=== PATIENT | female | born 1945 | race Caucasian/White ===

== ENCOUNTER → 2023-11-17 13:47 | Outpatient (REF) | payer MEDICARE, OTHER, SELFPAY | LOC: HWRAD 13:47 | PROVIDERS: ATTENDING PHYSICIAN Family Medicine | DX: R10.33 Periumbilical pain (principal) | CPT/HCPCS: 74170; Q9967 ==

== ENCOUNTER 2023-11-21 14:49 | Inpatient (IN) | payer MEDICARE, OTHER, SELFPAY ==
[2023-11-21] VITALS (8 sets, daily range): BP systolic 107–160; BP diastolic 66–85
--- NOTE | 2023-11-21 12:45 | ED.GENMED ---
History of Present Illness
General
Chief Complaint: Abdominal Symptoms
Source: patient
Exam Limitations: none
Time Seen by Provider: 11/21/23 12:29
Nursing documentation reviewed up to this point in time: agreed with
Travel History
Have you had any contact with someone who has COVID-19?: No
Do you have any symptoms of coronavirus? Fever > 100 degrees, chills, cough, shortness of breath, sore throat, loss of taste or smell, muscle aches, or headache?: No
History of Present Illness
History of Present Illness:
Patient presents to ED secondary to persistent abdominal pain associated with nausea sensation and decreased appetite over the past 2 weeks. Patient was evaluated by her primary care physician last week and recently had CT scan of abdomen pelvis
completed. Patient received phone call today from her primary care physician with concern for potential abdominal malignancy and referred to ED for further evaluation and treatment. Upon arrival, patient denies fever. Denies chills. Denies chest
pain or shortness of breath. Patient is complaining of ongoing abdominal pain with radiation to back and shoulder. Denies vomiting or diarrhea. Patient reports having lost approximately 4 pounds of weight since onset of her symptoms. Patient is
a daily smoker.
Past History
Past History
ED Past Medical History: COPD and Hypercholesterolemia; Negative HTN or NIDDM
ED Past Surgical History: None
Social History
Tobacco: Smoker
Alcohol: None
Personal:
Living: with family
Review of Systems
Review of Systems
Allergies reviewed?: Yes
All Other Systems: ROS reviewed and negative except as documented in HPI and ROS
Constitutional: Reports no symptoms
Respiratory: Reports no symptoms; Denies trouble breathing
Cardiac: Reports no symptoms; Denies chest pain
ABD/GI: Reports abdominal pain and nausea; Denies vomiting or diarrhea
: Reports no symptoms
Musculoskeletal: Reports back pain
Skin: Reports no symptoms
Neurological: Reports no symptoms; Denies dizzy, headache or weakness
Phy Exam
Physical Exam
Physical Exam:
Physical Exam
General: mild painful distress, not acutely ill. afebrile
Head: nc/at. eomi
Neck: supple. normal range of motion.
Heart: s1/s2 regular rate and rhythm, no murmur. equal radial pulses.
Lungs: no acute respiratory distress. clear bilaterally
Abdomen: normal bowel sounds. mild diffuse abdominal tenderness to palpation.
Neuro: alert and oriented. no focal neurological deficits
Skin: no rash
Psychiatric: well kept. interactive and cooperative
Extremities: no edema. no calf tenderness.
Course
Orders/Labs/Results
Orders:
Orders
11/21/23 Lunch
Clear Liquid
11/21/23 11:58
EKG [Electrocardiogram (*1)] Urgent
Reason for Study: Abdominal Pain
11/21/23 11:59
EKG- Treatment ONCE
11/21/23 12:41
0.9% Sodium Chloride 500 ml [Nss] 500 ml IV BOLUS
Morphine Sulfate 2 mg IV NOW STA
Ondansetron Injectable [Zofran] 4 mg IV NOW STA
11/21/23 12:50
Complete Blood Count/With Diff Urgent
Comprehensive Metabolic Panel Urgent
Lipase Urgent
Magnesium Urgent
11/21/23 13:49
Urinalysis Reflex To Culture Urgent
Date Specimen was Collected: 11/21/23
Time Specimen was Collected: 13:46
11/21/23 14:32
Admit/Transfer Patient As Directed
Co-Sign Provider:
Level of Care: Inpatient admission
Assign to:: Medical/Surgical
Physician / Group: javad/hospitalist
Diagnosis: abd ppain
Reason for Hospitalization: abd pain, nausea, concern for malignancy
Expected length of stay greater than two midnights?: Yes
ELOS- Estimated Length of Stay in days: 4
I certify the patient meets the requirements for IP care: Yes
11/21/23 14:33
Code Status As Directed
Resuscitation Status: Full Code
11/21/23 14:37
GASTROINTESTINAL CONSULT Routine
Consulting Provider: Miguel Abbasi
Was physician already notified: Yes
Reason for consult: TT by er. Pancreatic lesion
CA 19-9 [S] Routine
11/21/23 17:05
Acetaminophen [Tylenol] 650 mg PO Q4HPRN PRN
Ipratropium/Albuterol Sulfate [Duoneb] 3 ml INH R Q4HPRN PRN
Lactated Ringers [Lr] 1,000 ml IV 200 mls/hr
Morphine Sulfate 2 mg IV Q4HPRN PRN
Nicotine [Nicoderm Transdermal] 21 mg TRANSDERM DAILY
Ondansetron Injectable [Zofran] 4 mg IV Q6HPRN PRN
Oxycodone [Roxicodone] 5 mg PO Q4HPRN PRN
11/21/23 17:05
Activity As Directed
Activity Level: Out of Bed-Early Mobility
Vital Signs As Directed
Frequency: Per unit guidelines
DX Deep Vein Thrombosis Video Routine
11/21/23 18:00
Enoxaparin Sodium [Lovenox] 40 mg SC QPM
11/22/23 Breakfast
NPO
Allow oral meds: Yes
Allow clear liquids: 4hrs prior to procedure
NPO for procedure after (time): midnight for GI Procedure tomorrow
Comment: may have unrestricted clear liquids up to 4 hrs prior to scheduled proc
Cardiovascular Evaluation IN AM
Complete Blood Count/With Diff IN AM
Comprehensive Metabolic Panel IN AM
Hemoglobin A1c [Glycohemoglobin (HgbA1c)] IN AM
PTT IN AM
Prothrombin Time IN AM
11/22/23 08:00
Losartan [Cozaar] 25 mg PO DAILY
Multivitamin [Theragran] 1 tablet PO DAILY
11/22/23 14:00
Levothyroxine [Synthroid] 112 mcg PO DAILY@1400
11/22/23 14:47
Surgical Procedure As Directed
Surgical Procedure: EUS 11/21
Abnormal Lab Results
11/21/23
12:50
RDW 14.7 H %
(11.5-14.5)
MPV 10.6 H fL
(7.4-10.4)
Absolute Monos (auto) 0.7 H 10^3/uL
(0.1-0.6)
Lymphocytes % 20.3 L %
(20.5-51.1)
Sodium 133 L mmol/L
(135-145)
BUN 20 H mg/dl
(7-17)
Glucose 118 H mg/dl
(70-99)
AST 127 H U/L
(14-36)
ALT 228 H U/L
(0-35)
Alkaline Phosphatase 284 H U/L
(38-126)
Lipase 301 H U/L
(23-300)
11/21/23 12:50
11/21/23 12:50
Vital Signs
Initial and Last Documented VS:
Initial Vital Signs
Temp Pulse Resp BP Pulse Ox
98.6 F 111 18 160/85 97
11/21/23 11:59 11/21/23 11:59 11/21/23 11:59 11/21/23 11:59 11/21/23 11:59
Last Documented Vital Signs
Temp Pulse Resp BP Pulse Ox
98.1 F 78 18 126/74 97
11/21/23 23:38 11/21/23 23:38 11/21/23 23:38 11/21/23 23:38 11/21/23 23:38
MDM/Problems Addressed
MDM/Problems Addressed:
CT report from last week reviewed concerning for likely metastatic pancreatic cancer.
Pt with continual abdominal discomfortable along with poor oral intake. Will admit for further evaluation and treatment, including better pain control along with continual hydration.
GI (Dr.Woo Abbasi) notified via [facility].
*Critical Care Note
Total Time (30-74mins, 75-104mins- exclusive of procedures): Not Applicable
ED Attending Note
-
Portions of this chart may have been created with voice recognition software.� Occasional wrong word or��sound alike� substitutions may have occurred due to the inherent limitations of voice recognition software.
Discharge Plan
Departure
Patient Disposition: Admit
Date of Disposition: 11/21/23
Time of Disposition: 13:43
Presentation/result/management discussed w/ accepting MD/DO: Hospitalist
Discharge Problem:
Abnormal CT of the abdomen, Intractable abdominal pain, Dehydration
Interventions
Interventions:
*Risk Screen - Suicide Last Done: 11/21/23 17:43
*General Assessment Last Done: 11/21/23 11:59
*Neglect/Abuse Screening Last Done: 11/21/23 11:59
ED- Fall Risk Assessment Last Done: 11/21/23 12:39
*ED COVID-19 Vaccine History Last Done: 11/21/23 17:43
*Nursing Disposition Last Done: 11/21/23 16:56
LS-Qesnxq-Ssjlfenzqp Assessment Last Done: 11/21/23 12:39
Discharge Date and Time
Discharge Date/Time: 11/21/23 16:56
[2023-11-21] MEDS: MORPHINE SULFATE 2 MG IV (12:48)
[2023-11-21] MEDS: ZOFRAN 4 MG IV ×2 (12:48→19:56)
[2023-11-21] MEDS: NSS 500 IV (12:49)
[2023-11-21 13:04] LABS: % Basophils 0.6 % (0-2); % Eosinophils 2.1 % (0-6); % Immature Granulocytes 0.3 % (0-0.5); % Lymphocytes 20.3 % (20.5-51.1); % Monocytes 7.9 % (1.7-9.3); % Neutrophils 68.8 % (42.2-75.2); Absolute Basophils 0.1 10^3/uL (0-0.2); Absolute Eosinophils 0.2 10^3/uL (0-0.7); Absolute Lymphocytes 1.8 10^3/uL (1.2-3.4); Absolute Monocytes 0.7 10^3/uL (0.1-0.6); Hematocrit 37.8 % (37.0-47.0); Hemoglobin 12.9 g/dL (12.0-16.0); Mean Corp Hgb Conc. 34.1 g/dL (33.0-37.0); Mean Corpuscular Hgb 30.4 pg (27.0-31.0); Mean Corpuscular Volume 88.9 fL (81.0-99.0); Mean Platelet Volume 10.6 fL (7.4-10.4); Nucleated Red Blood Cells % 0 %; Platelet Count 251 10^3/uL (130-400); Red Blood Cell Count 4.25 10^6/uL (4.20-5.40); Red Cell Dist. Width 14.7 % (11.5-14.5); White Blood Cell Count 8.8 10^3/uL (4.8-10.8)
--- NOTE | 2023-11-21 13:50 | CON.GI ---
Addendum entered and electronically signed by Miguel Abbasi MD 11/21/23 16:15:
I saw and examined the patient.
The PA's note was reviewed and I agree with the note.
Comment:
Pt is a 78 year old female with h/o COPD, pulm nodules, hypothyroidism, and tobacco abuse who p/w abnormal imaging results.� She had CT 11/16 which showed decreased attenuation of pancreas concerning for malignancy.
Impression / Rec:
1. Suspected pancreatic mass - CT on 11/16 showed decreased attenuation of the pancreas extending from level of the pancreatic neck through the tail, highly suspicious for primary pancreatic malignancy. There is obliteration of the splenic vein and
splenic artery with associated venous shunting and varices. There is near occlusion of the superior mesenteric vein. There is a stricture of the left renal vein. There is encasement of celiac axis and superior mesenteric artery. There is invasion of
the left adrenal gland. Overall these findings are highly suspicious for pancreatic malignancy. The mass involves neck/body/tail, no biliary dilation noted except for isolated left intrahepatic lesion (possible mets). LFT showed normal bili,
elevated alk phos. Will plan for EUS FNA of panc mass tomorrow. No plan for ERCP for now. Keep NPO from midnight.
Original Note:
Consultation
-
Date/Time Consultation Requested: 11/21/23 1345
Date/Time Consultation Performed: 11/21/23 1350
Requesting Provider: Aaron Keith MD
Performing Provider: ZACH Brand, Miguel Abbasi MD
Reason for Consultation: abnormal CT
Medical History
Chief Complaint / HPI
Chief Complaint: abdominal pain
History of Present Illness:
Pt is a 78yo with hx COPD, pulm nodules, hypothyroidism, skin CA, arthritis, tobacco abuse, IBS constipation with onset of abdominal pain with decreased appetite. She completed CT 11/17/23 concern for decreased attenuation of pancreas concerning for
malignancy with mild distal pancreatic duct dilation with malignancy extends beyond the margins of the pancreas. There is obliteration of the splenic vein and splenic artery with associated venous shunting and varices. There is near occlusion of the
superior mesenteric vein. There is a stricture of the left renal vein. There is encasement of celiac axis and superior mesenteric artery. There is invasion of the left adrenal gland.There is also decreased attenuation of left sided portal vein
branch and isolated intrahepatic biliary dilation in the left lobe of the liver. These findings could be related to metastasis, however no discrete well-circumscribed intrahepatic mass lesion is identified.� Diffuse mild dilation of proximal small
bowel loops, indeterminate etiology. On admission LFT's with bili 0.8, AST 127, ALT 228, alk phos 284 and lipase 301.
Pt states some decreased appetite and nausea for last months. She was lost about 4 lbs. She has hx GERD symptoms with some chronic symptoms with and prior EGD many years ago did not recall any abnormal finding. She admits to constipation for
last 2 days. She otherwise denies dysphagia, vomiting, blood or black in stools. Daily ASA no other anticoagulation use.
Past Medical History
Past Medical History: Cancer (skin CA), COPD, Hypercholesterolemia, Hypothyroidism and Other (arthritis, tobacco abuse, eczema, colon polyps, lung nodules, IBS constipation, prior + colonguard)
Past Surgical History: Other (moh's surgery)
Social History
Tobacco: Smoker (1ppd)
Alcohol: None
Drug: None
Personal:
Living: With Family
Employment: Retired
Family History
Family History: Other (no family hx colon CA or polyps)
Allergies / Home Medications
Allergy/AdvReac Type Severity Reaction Status Date / Time
No Known Allergies Allergy Verified 02/02/18 15:49
Medication Instructions Recorded
levothyroxine 112 mcg tablet 112 mcg PO DAILY 02/02/18
prednisone 20 mg tablet 40 mg PO DAILY COPD #10 tabs 02/02/18
Review of Systems
-
Unable to obtain full review of systems at this time due to: Dementia
History Source: Patient
Constitutional: Reports Weight Loss (few lbs )
EENT: Reports No Symptoms
Respiratory: Reports No Symptoms
Abdomen/GI: Reports Abdominal Pain and Nausea
: Reports No Symptoms
Musculoskeletal: Reports No Symptoms
Neurological: Reports Weakness
Endocrine: Reports No Symptoms
Hematologic/Lymphatic: Reports No Symptoms
Vital Signs
Temp Pulse Resp BP Pulse Ox
98.6 F 111 18 145/67 97
11/21/23 11:59 11/21/23 11:59 11/21/23 11:59 11/21/23 12:33 11/21/23 12:33
Physical Exam
Exam
General: Well Developed, Well Nourished and No Apparent Distress
HEENT: Normocephalic and Anicteric
Respiratory: Clear
Cardiac: Other (tachy)
GI: Soft, Non Tender and Non Distended
Musculoskeletal: No Clubbing and No Cyanosis
Skin: Warm and Dry
Neuro: Awake, Alert and AO x 3
Psych: Calm
Results
WBC 8.8 10^3/uL (4.8-10.8) 11/21/23 12:50
Hgb 12.9 g/dL (12.0-16.0) 11/21/23 12:50
Hct 37.8 % (37.0-47.0) 11/21/23 12:50
MCV 88.9 fL (81.0-99.0) 11/21/23 12:50
Plt Count 251 10^3/uL (130-400) 11/21/23 12:50
Absolute Neuts (auto) 6.0 10^3/uL (1.4-6.5) 11/21/23 12:50
Diagnostic Image Results:
11/17/23 CT Abdomen W/wo Iv Contrast
1. � Abnormally decreased attenuation of the pancreas extending from level of the pancreatic neck through the tail, highly suspicious for primary pancreatic malignancy. Associated mild distal pancreatic ductal dilation.
2. � As above, abnormal soft tissue attenuation representing malignancy extends beyond the margins of the pancreas. There is obliteration of the splenic vein and splenic artery with associated venous shunting and varices. There is near occlusion of
the superior mesenteric vein. There is a stricture of the left renal vein. There is encasement of celiac axis and superior mesenteric artery. There is invasion of the left adrenal gland.
3. � Within the liver, abnormal decreased attenuation of left sided portal vein branch and isolated intrahepatic biliary dilation in the left lobe of the liver. These findings could be related to metastasis, however no discrete well-circumscribed
intrahepatic mass lesion is identified.
4. � Diffuse mild dilation of proximal small bowel loops, indeterminate etiology.
Prior GI Procedures:
EGD: none
06/2021 colonoscopy - [facility]�- One 1 mm polyp at the recto-sigmoid colon, removed with a cold snare. Resected and retrieved.- One 4 mm polyp in the proximal transverse colon, removed with a jumbo cold forceps. Resected and retrieved The examination
was otherwise normal.bx Tubular adenoma
Assessment / Plan
-
Pt is a 78yo with hx COPD, pulm nodules, hypothyroidism, skin CA, arthritis, tobacco abuse, IBS constipation with onset of abdominal pain with decreased appetite. She completed CT 11/16 concern for decreased attenuation of pancreas concerning for
malignancy with mild distal pancreatic duct dilation with malignancy extends beyond the margins of the pancreas. There is obliteration of the splenic vein and splenic artery with associated venous shunting and varices. There is near occlusion of the
superior mesenteric vein. There is a stricture of the left renal vein. There is encasement of celiac axis and superior mesenteric artery. There is invasion of the left adrenal gland.There is also decreased attenuation of left sided portal vein
branch and isolated intrahepatic biliary dilation in the left lobe of the liver. These findings could be related to metastasis, however no discrete well-circumscribed intrahepatic mass lesion is identified.� Diffuse mild dilation of proximal small
bowel loops, indeterminate etiology. On admission LFT's with bili 0.8, AST 127, ALT 228, alk phos 284 and lipase 301.
-nausea/decreased appetite
-CT with concern for pancreatic malignancy with venous shunting and varices, near occlusion of SMV and encasement of celiac and SMA stricture of renal vein and decreased attenuation of portal vein and isolated biliary dilation
-dilation SB loops
-increased LFT's and lipase
-constipation
-chronic shortness of breath with COPD
other medical problems:
-pulm nodules
-hypothyroidism
-skin CA
-arthritis
-tobacco abuse
-IBS-C
PLAN:
Etiology of nausea and pain related to underlying malignant process vs other
will review imaging with Dr. Abbasi to review for EUS with biopsy
Ca 19-9
trend LFT's and lipase
clear diet
support give as multiple social issues as spouse with recent fall and pet recent diagnosis of cancer
-
-
Thank you for consultation and allowing me to participate in the patient's care. Please call the [facility] director GI physician during the after hours with any questions or concerns.
[2023-11-21 14:04] LABS: ALT (SGPT) 228 U/L (0-35); AST (SGOT) 127 U/L (14-36); Albumin 4.2 g/dl (3.5-5.0); Alkaline Phosphatase 284 U/L (38-126); Blood Urea Nitrogen 20 mg/dl (7-17); Calcium 9.7 mg/dl (8.4-10.2); Carbon Dioxide 25 mmol/L (22-30); Chloride 101 mmol/L (98-107); Glucose 118 mg/dl (70-99); Lipase 301 U/L (23-300); Magnesium 1.8 mg/dl (1.6-2.3); Potassium 4.3 mmol/L (3.5-5.1); Sodium 133 mmol/L (135-145); Total Bilirubin 0.8 mg/dl (0.2-1.3); eGFR > 60.00
[2023-11-21 14:06] LABS: Urine Albumin Trace (Neg - Trace); Urine Bilirubin Negative (Negative); Urine Character Clear (Clear); Urine Color Yellow; Urine Glucose Negative (Negative); Urine Ketone Negative (Negative); Urine Leukocyte Negative (Negative); Urine Nitrite Negative (Negative); Urine Occult Blood Negative (Negative); Urine Urobilinogen Negative (Neg - 1+)
--- NOTE | 2023-11-21 14:09 | HPS.HSE ---
Family Physician
-
Family Physician:
Chief Complaint
-
abdomen pain
History of Present Illness
78-year-old female past medical history of ongoing tobacco abuse who had been having abdominal discomfort for the past 3 weeks with radiation to the back and went to see primary doctor. Patient underwent CT abdomen pelvis outpatient which was found
to be abnormal and was recommended to come into the ER for further management. Patient states of decreased appetite due to abdominal discomfort. States of abdominal discomfort/pain with radiation to the back. States of some nausea but no
vomiting. No bowel movements for 2 days. Passing flatulence. States her weight loss of 4 pounds recently. Denies any change in color of urine or stools. Denies any alcohol abuse. Denies any family history of pancreatic or any malignancy.
Medical History
Past Medical History
Past Medical History: Reports Other
Additional Past Medical History:
Tobacco abuse
COPD
Hypothyroidism
History of skin cancer
Mild aortic stenosis
Mild tricuspid regurgitation
Past Surgical History: Reports Other
Additional Past Surgical History:
Hemorrhoidectomy
Mohs
Social History
Tobacco: Smoker (1 pack/day for 59 years)
Alcohol: None
Family History
Family History: Other (Denies any family history of cancer)
Allergies / Home Medications
Allergies reflects when Allergies were last updated in [facility].
Home Medications with original date entered in [facility]
Allergy/Medication List:
Allergies
Allergy/AdvReac Type Severity Reaction Status Date / Time
No Known Allergies Allergy Verified 02/02/18 15:49
Home Medications
levothyroxine 112 mcg tablet 112 mcg PO DAILY@1400 02/02/18
acetaminophen 325 mg tablet (Tylenol) 650 mg PO BIDPRN PRN mild pain 11/21/23
atorvastatin 40 mg tablet 40 mg PO DAILY@199911/21/23
losartan 25 mg tablet 25 mg PO DAILY 11/21/23
xdmxzyzslqtf-zhejoedx-gqqkvr tablet 1 tab PO DAILY 11/21/23
tiotropium 2.5 mcg-olodaterol 2.5 mcg/actuation mist for inhalation (Stiolto Respimat) 1 puff inhalation R DAILY@199911/21/23
Review of Systems
-
History Source: Patient
A 12 point ROS was completed and negative except as noted: Yes
Physical Exam
Vital Signs
Vital Signs
Temp Pulse Resp BP Pulse Ox
98.6 F 111 18 145/67 97
11/21/23 11:59 11/21/23 11:59 11/21/23 11:59 11/21/23 12:33 11/21/23 12:33
Physical Exam
General: No Apparent Distress and Appears Chronically Ill
HEENT: NormoCephalic and Anicteric
Respiratory: Clear
Cardiac: S1/S2 and Regular Rhythm
GI: Soft, Normal Bowel Sounds, Tender (Epigastric tenderness) and Distended
Rectal: Deferred by Provider
Genito-urinary: Deferred by me
Musculoskeletal: No Edema and Other (Varicosis vein bilateral lower extremities)
Skin: Warm
Neuro: Awake, Alert, Oriented, AO x 3, No Motor Deficits and Nonfocal/grossly intact
Psych: Calm
Laboratory Results
-
11/21/23 12:50
11/21/23 12:50
Laboratory Results
Total Bilirubin 0.8 mg/dl (0.2-1.3) 11/21/23 12:50
AST 127 U/L (14-36) H 11/21/23 12:50
ALT 228 U/L (0-35) H 11/21/23 12:50
Alkaline Phosphatase 284 U/L (38-126) H 11/21/23 12:50
Lipase 301 U/L (23-300) H 11/21/23 12:50
Impression/Plan
-
#Abdominal pain nausea likely secondary to pancreatitis with concern for malignancy pancreatic (primary)
#Transaminitis
Liquid diet for now
Start patient on LR
Pain control
Check CA 19�1 May require MRCP
Gastroenterology evaluation-May require EUS/ERCP and brushing with FNA +/- stent
Lipasea elevated
CT scan significant abnormality noted.
Alk phos elevated
#Tobacco abuse
#COPD
#Right pulmonary lobe nodule
-Continue with inhalers
-Nicotine patch ordered
-follows with Dr. Rivas
#Atherosclerotic vascular disease
-Check lipid panel and A1c'
'
Primary hypertension
Continue to hold losartan
Hyperlipidemia
Hold statin for now
Hypothyroidism secondary Synthroid
Hepatic steatosis
Osteopenia
DVT ppx-lovenox
I spent a total of 78 minutes with the patient or on the floor. More than 50% of this time involved counseling and coordination of care.
[2023-11-21] MEDS: NICODERM TRANSDERMAL 21 MG TRANSDERM (17:37)
[2023-11-21] MEDS: LOVENOX 40 MG SC (17:37)
[2023-11-21] MEDS: LR 1000 IV ×2 (17:37→21:43)
[2023-11-21] MEDS: TYLENOL 650 MG PO (19:56)
[2023-11-22] MEDS: LR 1000 IV ×3 (03:05→13:17)
--- NOTE | 2023-11-22 03:43 | DOWNTIME ---
There was a [facility] [employer] Downtime on 11/22/2023 from 0100 to 11/22/2023 at 0322. Downtime documentation of patient's care, including medication administrations, has been reconciled in the electronic record per guidelines. Refer to the
patient's paper chart under the miscellaneous tab to see printed paper medication records and downtime forms.
[2023-11-22 07:00] VITALS: BP 137/64
[2023-11-22] MEDS: THERAGRAN 1 TABLET PO (07:41)
[2023-11-22] MEDS: COZAAR 25 MG PO (07:41)
[2023-11-22] MEDS: NICODERM TRANSDERMAL 21 MG TRANSDERM (07:42)
[2023-11-22] MEDS: ROXICODONE 5 MG PO ×2 (08:10→23:50)
[2023-11-22 08:11] LABS: % Eosinophils 3.8 % (0-6); % Immature Granulocytes 0.5 % (0-0.5); % Lymphocytes 25.4 % (20.5-51.1); % Monocytes 7.9 % (1.7-9.3); % Neutrophils 61.4 % (42.2-75.2); Absolute Basophils 0.1 10^3/uL (0-0.2); Absolute Eosinophils 0.3 10^3/uL (0-0.7); Absolute Lymphocytes 2.1 10^3/uL (1.2-3.4); Absolute Monocytes 0.7 10^3/uL (0.1-0.6); Absolute Neutrophils 5.2 10^3/uL (1.4-6.5); Hematocrit 36.7 % (37.0-47.0); Hemoglobin 12.4 g/dL (12.0-16.0); Mean Corp Hgb Conc. 33.8 g/dL (33.0-37.0); Mean Corpuscular Hgb 30.5 pg (27.0-31.0); Mean Corpuscular Volume 90.4 fL (81.0-99.0); Mean Platelet Volume 10.7 fL (7.4-10.4); Nucleated Red Blood Cells % 0 %; Platelet Count 213 10^3/uL (130-400); Red Blood Cell Count 4.06 10^6/uL (4.20-5.40); Red Cell Dist. Width 14.8 % (11.5-14.5); White Blood Cell Count 8.4 10^3/uL (4.8-10.8)
[2023-11-22 08:15] LABS: PT 13.2 Sec (11.4-14.6)
[2023-11-22 08:16] LABS: APTT 26.7 Sec (23.4-35.0)
[2023-11-22 08:44] LABS: ALT (SGPT) 178 U/L (0-35); AST (SGOT) 85 U/L (14-36); Albumin 3.6 g/dl (3.5-5.0); Alkaline Phosphatase 261 U/L (38-126); Blood Urea Nitrogen 13 mg/dl (7-17); Calcium 9.4 mg/dl (8.4-10.2); Carbon Dioxide 25 mmol/L (22-30); Chloride 100 mmol/L (98-107); Estimated Creatinine Clearance 59 ml/min; Glucose 95 mg/dl (70-99); HDL Cholesterol 86 mg/dl; LDL Cholesterol, Calculated 63 mg/dl; Potassium 4.5 mmol/L (3.5-5.1); Sodium 134 mmol/L (135-145); Total Bilirubin 0.6 mg/dl (0.2-1.3); Total Cholesterol 173 mg/dl (50-199); Total Protein 6.4 g/dl (6.3-8.2); Triglyceride 123 mg/dl (10-149); Very Low Density Lipoprotein 24 mg/dl (0-30); eGFR > 60.00
[2023-11-22] MEDS: STRIVERDI RESPIMAT 2 PUFF INH (08:46)
[2023-11-22] MEDS: SPIRIVA RESPIMAT 2.5 MCG 2 PUFF INH (08:46)
[2023-11-22 09:00] LABS: Glycohemoglobin (HgbA1c) 6.3 % (4.0-5.6)
--- NOTE | 2023-11-22 10:26 | CM ---
Patient seen bedside, initial assessment completed. Patient reports she lives wit her in a two story home, 8 steps to enter, 12 steps to the second floor. Patient denies DME, VN, or SNF history. Patient confirms PCP Dr. Fernando, pharmacy
[facility] in [place]. CM will continue to follow for discharge planning needs and be available for support.
Plan; home with vs VN.
--- NOTE | 2023-11-22 10:53 | W.PN.HOSP.TC ---
Today's Communication/Plan
-
IVF dec rate
NPO
Pain control
EUS/FNA today
post op diet per GI
Assessment / Plan
Assessment / Plan
General: No Apparent Distress and Appears Chronically Ill
HEENT: NormoCephalic and Anicteric
Respiratory: Clear
Cardiac: S1/S2 and Regular Rhythm
GI: Soft, Normal Bowel Sounds, Tender (Epigastric tenderness) and Distended
Rectal: Deferred by Provider
Genito-urinary: Deferred by me
Musculoskeletal: No Edema and Other (Varicosis vein bilateral lower extremities)
Skin: Warm
Neuro: Awake, Alert, Oriented, AO x 3, No Motor Deficits and Nonfocal/grossly intact
Psych: Calm
#Abdominal pain nausea likely secondary to pancreatitis with concern for malignancy pancreatic (primary)
#Transaminitis
Start patient on LR
Pain control
Check CA
Gastroenterology evaluation-Plan for EUS/FNA later today.
Lipasea elevated
CT scan significant abnormality noted.
Alk phos elevated
#Tobacco abuse
#COPD
#Right pulmonary lobe nodule
-Continue with inhalers
-Nicotine patch ordered
-follows with Dr. Rivas
#Atherosclerotic vascular disease
-A1C at 6.3
'
Primary hypertension
Continue to hold losartan
Hyperlipidemia
Hold statin for now
Hypothyroidism secondary Synthroid
Hepatic steatosis
Osteopenia
DVT ppx-lovenox
Anticipated Discharge: > 48 hours
Subjective/Interval History
-
Date of Service: November 22, 2023
states of abd soreness
remains npo
Objective Data
-
Labs:
Laboratory Results
11/22/23
07:26
WBC 8.4
Hgb 12.4
Hct 36.7 L
Plt Count 213
PT 13.2
INR 1.00
APTT 26.7
Sodium 134 L
Potassium 4.5
Chloride 100
Carbon Dioxide 25
BUN 13
Creatinine 0.7
Glucose 95
Calcium 9.4
Total Bilirubin 0.6
AST 85 H
ALT 178 H
Alkaline Phosphatase 261 H
Vital Signs:
Vital Signs
Temp Pulse Resp BP Pulse Ox
98.2 F 80 18 137/64 96
11/22/23 07:00 11/22/23 07:41 11/22/23 07:00 11/22/23 07:41 11/22/23 07:00
I&O
11/21/23 11/22/23 11/23/23
06:59 06:59 06:59
Intake Total 120 / 120
Balance 120 / 120
[2023-11-22 16:45] VITALS: BP 143/77; BP_SYST 16
[2023-11-22 17:00] VITALS: BP 146/74; BP_SYST 13
[2023-11-22] MEDS: DILAUDID 0.25 MG IV (17:12)
[2023-11-22 17:15] VITALS: BP_SYST 16
[2023-11-22 17:30] VITALS: BP 137/70
[2023-11-22] MEDS: LOVENOX 40 MG SC (17:57)
[2023-11-22 23:00] VITALS: BP 185/59
[2023-11-22] MEDS: LR IV (23:49)
[2023-11-23 00:30] VITALS: BP 127/58
[2023-11-23] MEDS: SYNTHROID 112 MCG PO (06:15)
[2023-11-23 07:44] VITALS: BP 134/64
[2023-11-23] MEDS: THERAGRAN 1 TABLET PO (08:16)
[2023-11-23] MEDS: NICODERM TRANSDERMAL 21 MG TRANSDERM (08:16)
[2023-11-23] MEDS: COZAAR 25 MG PO (08:16)
[2023-11-23 08:31] LABS: % Basophils 0.6 % (0-2); % Eosinophils 2.5 % (0-6); % Immature Granulocytes 0.4 % (0-0.5); % Lymphocytes 18.5 % (20.5-51.1); % Monocytes 7.5 % (1.7-9.3); % Neutrophils 70.5 % (42.2-75.2); Absolute Basophils 0.1 10^3/uL (0-0.2); Absolute Eosinophils 0.2 10^3/uL (0-0.7); Absolute Lymphocytes 1.6 10^3/uL (1.2-3.4); Absolute Monocytes 0.6 10^3/uL (0.1-0.6); Absolute Neutrophils 5.9 10^3/uL (1.4-6.5); Hematocrit 35.7 % (37.0-47.0); Hemoglobin 11.9 g/dL (12.0-16.0); Mean Corp Hgb Conc. 33.3 g/dL (33.0-37.0); Mean Corpuscular Hgb 30.1 pg (27.0-31.0); Mean Corpuscular Volume 90.2 fL (81.0-99.0); Mean Platelet Volume 10.8 fL (7.4-10.4); Nucleated Red Blood Cells % 0 %; Platelet Count 195 10^3/uL (130-400); Red Blood Cell Count 3.96 10^6/uL (4.20-5.40); Red Cell Dist. Width 14.7 % (11.5-14.5); White Blood Cell Count 8.4 10^3/uL (4.8-10.8)
[2023-11-23] MEDS: STRIVERDI RESPIMAT 2 PUFF INH (08:47)
[2023-11-23] MEDS: SPIRIVA RESPIMAT 2.5 MCG 2 PUFF INH (08:47)
--- NOTE | 2023-11-23 09:01 | W.PN.GI.CBS2 ---
Today's Communication / Plan
-
reg diet, oncology consult, GI s/o
Assessment / Plan
-
Pt is a 78yo with hx COPD, pulm nodules, hypothyroidism, skin CA, arthritis, tobacco abuse, IBS constipation with onset of abdominal pain with decreased appetite. She completed CT 11/16 concern for decreased attenuation of pancreas concerning for
malignancy with mild distal pancreatic duct dilation with malignancy extends beyond the margins of the pancreas. There is obliteration of the splenic vein and splenic artery with associated venous shunting and varices. There is near occlusion of the
superior mesenteric vein. There is a stricture of the left renal vein. There is encasement of celiac axis and superior mesenteric artery. There is invasion of the left adrenal gland.There is also decreased attenuation of left sided portal vein
branch and isolated intrahepatic biliary dilation in the left lobe of the liver. These findings could be related to metastasis, however no discrete well-circumscribed intrahepatic mass lesion is identified.� Diffuse mild dilation of proximal small
bowel loops, indeterminate etiology. On admission LFT's with bili 0.8, AST 127, ALT 228, alk phos 284 and lipase 301.
EUS yesterday showed panc mass in body/tail. Vascular involvement as detailed in the report. Will need oncology evaluation/follow up. Denies pain. Regular diet. Will s/o, pls call with questions.
Total Time Spent with Patient (in minutes): 35
Subjective
Subjective
Date of Service: November 23, 2023
Denies abdo pain.
Objective
Data Reviewed
Laboratory Data:
Laboratory Results
11/23/23 07:56
Laboratory Results
PT 13.2 Sec (11.4-14.6) 11/22/23 07:26
INR 1.00 11/22/23 07:26
APTT 26.7 Sec (23.4-35.0) 11/22/23 07:26
Magnesium 1.8 mg/dl (1.6-2.3) 11/21/23 12:50
Total Bilirubin 0.6 mg/dl (0.2-1.3) 11/22/23 07:26
AST 85 U/L (14-36) H 11/22/23 07:26
ALT 178 U/L (0-35) H 11/22/23 07:26
Alkaline Phosphatase 261 U/L (38-126) H 11/22/23 07:26
Lipase 301 U/L (23-300) H 11/21/23 12:50
Vital Signs and I&O:
Vital Signs
Temp Pulse Resp BP Pulse Ox
98.0 F 71 16 134/64 99
11/23/23 07:44 11/23/23 08:48 11/23/23 08:48 11/23/23 08:16 11/23/23 08:48
I&O
11/22/23 11/23/23 11/24/23
06:59 06:59 06:59
Intake Total 120 / 120 1660 / 1660
Balance 120 / 120 1660 / 1660
[2023-11-23 09:40] LABS: ALT (SGPT) 140 U/L (0-35); AST (SGOT) 68 U/L (14-36); Albumin 3.3 g/dl (3.5-5.0); Alkaline Phosphatase 234 U/L (38-126); Blood Urea Nitrogen 12 mg/dl (7-17); Carbon Dioxide 23 mmol/L (22-30); Chloride 101 mmol/L (98-107); Estimated Creatinine Clearance 59 ml/min; Glucose 82 mg/dl (70-99); Sodium 129 mmol/L (135-145); Total Bilirubin 0.8 mg/dl (0.2-1.3); eGFR > 60.00
--- NOTE | 2023-11-23 09:52 | CON.ONC ---
Addendum entered and electronically signed by Alphonso Dobson DO 11/23/23 15:24:
Chart reviewed and patient examined independently. Agree with the impression and plan as outlined by ZACH below. Patient aware of the findings on her scan to suggest advanced pancreatic carcinoma.
Send revealed evidence of T3 disease aspiration performed. Await pathology. Broadly reviewed therapeutic interventions which for advanced disease includes palliative chemotherapy. Follow-up In the process of being arranged.
Original Note:
Impression
Impression
Acute abdominal pain
Concern for pancreatic malignancy on imaging
Transaminitis
Tobacco abuse, current smoker
Unintentional weight loss
Plan
Plan
Monitor CBC, CMP
Transfuse if needed to maintain Hgb >7, PLT >20
CA 19-9 level is pending
Pathology remains pending from pancreas biopsy 11/21
Continue supportive care, diet as tolerated
Pain management
Bowel regimen
Smoking cessation
Emotional support
The [facility] office has been notified of patient's case for scheduling JANET to review pathology and discuss treatment options.
We will follow. Await path.
Patient History
History of Present Illness
Cynthia Estes is a 78 year old female who presented to the ER with persistent abdominal pain associated with nausea and poor appetite x 2 weeks. Patient was evaluated by her primary care physician last week and recently had CT scan of abdomen pelvis
completed which showed concern for potential abdominal malignancy and referred to ED for further evaluation and treatment. She denies N/V/D or constipation. She admits to unintentional weight loss of 10lbs in the past month. Patient is a daily
smoker.
Past-Medical/Surgical History
Tobacco abuse, current smoker (1ppd x 59 years)
COPD
Hypothyroidism
Hx skin cancer s/p MOHs
Hemorrhoidectomy
Mild aortic stenosis
Mild tricuspid regurgitation
Patient Medication
�Medication �Instructions �Recorded �Confirmed �Last Taken �Type
levothyroxine 112 mcg tablet 112 mcg PO DAILY@1400 Thyroid 02/02/18 11/21/23 11/20/23 History
acetaminophen 325 mg tablet 650 mg PO BIDPRN PRN mild pain 11/21/23 11/21/23 2 Days Ago History
(Tylenol) ~11/19/23
atorvastatin 40 mg tablet 40 mg PO DAILY@1999 high 11/21/23 11/21/23 11/20/23 History
cholesterol
losartan 25 mg tablet 25 mg PO DAILY Blood Pressure 11/21/23 11/21/23 11/21/23 History
tmjbrzzsdfps-jamdosaj-kdpgqf tablet 1 tab PO DAILY Supplement 11/21/23 11/21/23 11/21/23 History
tiotropium 2.5 mcg-olodaterol 2.5 1 puff inhalation R DAILY@199911/21/23 11/21/23 11/20/23 History
mcg/actuation mist for inhalation Lung/Breathing Issues
(Stiolto Respimat)
Active Medications
Generic Name Dose Route Start Last Admin
Trade Name Freq PRN Reason Stop Dose Admin
Acetaminophen 650 mg 11/21/23 17:05 11/21/23 19:56
Acetaminophen 325 Mg Tablet PO 12/19/23 17:04 650 mg
Q4HPRN PRN Administration
mild pain/CARBONE/temp> 100.4F
Albuterol/Ipratropium 3 ml 11/21/23 17:05
Ipratropium 0.5/Albuterol 3 Mg (3 Ml Ampul) INH
R Q4HPRN PRN
sob/wheezing
Protocol
Enoxaparin Sodium 40 mg 11/21/23 18:00 11/22/23 17:57
Enoxaparin Sodium 40 Mg/0.4 Ml Syringe SC 12/19/23 17:59 40 mg
QPM JEAN-PAUL Administration
Levothyroxine Sodium 112 mcg 11/23/23 06:00 11/23/23 06:15
Levothyroxine 112 Mcg Tablet PO 12/21/23 05:59 112 mcg
DAILY@0600 JEAN-PAUL Administration
Losartan Potassium 25 mg 11/22/23 08:00 11/23/23 08:16
Losartan 25 Mg Tablet PO 12/20/23 07:59 25 mg
DAILY JEAN-PAUL Administration
Morphine Sulfate 2 mg 11/21/23 17:05
Morphine 2 Mg/Ml Syringe IV 12/05/23 17:04
Q4HPRN PRN
severe pain
Multivitamins Therapeutic 1 tablet 11/22/23 08:00 11/23/23 08:16
Multivitamin Tablet PO 12/20/23 07:59 1 tablet
DAILY JEAN-PAUL Administration
Nicotine 21 mg 11/21/23 17:05 11/23/23 08:16
Nicotine 21 Mg Patch TRANSDERM 12/19/23 17:04 21 mg
DAILY JEAN-PAUL Administration
Olodaterol 2 puff 11/22/23 08:00 11/23/23 08:47
Olodaterol (Striverdi Respimat) 2.5 Mcg Inhaler INH 12/20/23 07:59 2 puff
R DAILY JEAN-PAUL Administration
Ondansetron HCl 4 mg 11/21/23 17:05 11/21/23 19:56
Ondansetron 4 Mg/2 Ml Vial IV 12/19/23 17:04 4 mg
Q6HPRN PRN Administration
nausea and vomiting
Oxycodone HCl 5 mg 11/21/23 17:05 11/22/23 23:50
Oxycodone 5 Mg Regular Release Tablet PO 12/05/23 17:04 5 mg
Q4HPRN PRN Administration
moderate pain
Sodium Chloride 0 flush 11/21/23 18:00
Sodium Chloride 0.9% (Flush) Syringe IV 12/19/23 17:59
PER PROTOCOL JEAN-PAUL
Tiotropium [place] 2 puff 11/22/23 08:00 11/23/23 08:47
Tiotropium (Spiriva Respimat) 2.5 Mcg Inhaler INH 12/20/23 07:59 2 puff
R DAILY JEAN-PAUL Administration
Protocol
Review of Systems
-
History Source: Patient, Coordinated Provider and Records
Constitutional: Reports Weight Loss, No Appetite and Fatigue
EENT: Reports No Symptoms
Respiratory: Reports No Symptoms
Cardiac: Reports No Symptoms
GI: Reports No Symptoms
Breast: Reports N/A
: Reports No Symptoms
Musculoskeletal: Reports No Symptoms
Skin: Reports No Symptoms
Neuro: Reports No Symptoms
Endocrine: Reports No Symptoms
Hematologic/Lymphatic: Reports No Symptoms
Allergy / Immunology: Reports No Symptoms
Psych: Reports No Symptoms
Physical Exam
-
Patient is sitting up in bed, meal tray in front of her. She states she has no pain at this time. She denies N/V/D. She has not eaten yet and states she will 'take it slow'.
General: Comfortable, Conversant and Appears Chronically Ill
HEENT: Negative Jaundice
Cardiology: S1 and S2
Pulmonary: Clear
GI: Normal Bowel Sounds
Genito-Urinary: Deferred by me
Musculoskeletal: No Cyanosis and No Edema
Extremities: Pulses Present
Neurology: Non Focal
Skin: Warm and Dry
Psych: Calm
Labs
Lab Results
WBC 8.4 10^3/uL (4.8-10.8) 11/23/23 07:56
RBC 3.96 10^6/uL (4.20-5.40) L 11/23/23 07:56
Hgb 11.9 g/dL (12.0-16.0) L 11/23/23 07:56
Hct 35.7 % (37.0-47.0) L 11/23/23 07:56
MCV 90.2 fL (81.0-99.0) 11/23/23 07:56
MCH 30.1 pg (27.0-31.0) 11/23/23 07:56
MCHC 33.3 g/dL (33.0-37.0) 11/23/23 07:56
RDW 14.7 % (11.5-14.5) H 11/23/23 07:56
Plt Count 195 10^3/uL (130-400) 11/23/23 07:56
MPV 10.8 fL (7.4-10.4) H 11/23/23 07:56
Abs Immat Gran (auto) 0.0 10^3/uL (0-0.05) 11/23/23 07:56
Absolute Neuts (auto) 5.9 10^3/uL (1.4-6.5) 11/23/23 07:56
Absolute Lymphs (auto) 1.6 10^3/uL (1.2-3.4) 11/23/23 07:56
Absolute Monos (auto) 0.6 10^3/uL (0.1-0.6) 11/23/23 07:56
Absolute Eos (auto) 0.2 10^3/uL (0-0.7) 11/23/23 07:56
Absolute Basos (auto) 0.1 10^3/uL (0-0.2) 11/23/23 07:56
Immature Gran % 0.4 % (0-0.5) 11/23/23 07:56
Neutrophils % 70.5 % (42.2-75.2) 11/23/23 07:56
Lymphocytes % 18.5 % (20.5-51.1) L 11/23/23 07:56
Monocytes % 7.5 % (1.7-9.3) 11/23/23 07:56
Eosinophils % 2.5 % (0-6) 11/23/23 07:56
Basophils % 0.6 % (0-2) 11/23/23 07:56
Creatinine 0.7 mg/dL (0.6-1.0) 11/23/23 07:56
Vital Signs
Vital Signs
Temp Pulse Resp BP Pulse Ox
98.0 F 71 16 134/64 99
11/23/23 07:44 11/23/23 08:48 11/23/23 08:48 11/23/23 08:16 11/23/23 08:48
11/17/23 CT abdomen: Abnormally decreased attenuation of the pancreas extending from level of the pancreatic neck through the tail, highly suspicious for primary pancreatic malignancy. Associated mild distal pancreatic ductal dilation. As above,
abnormal soft tissue attenuation representing malignancy extends beyond the margins of the pancreas. There is obliteration of the splenic vein and splenic artery with associated venous shunting and varices. There is near occlusion of the superior
mesenteric vein. There is a stricture of the left renal vein. There is encasement of celiac axis and superior mesenteric artery. There is invasion of the left adrenal gland. Within the liver, abnormal decreased attenuation of left sided portal vein
branch and isolated intrahepatic biliary dilation in the left lobe of the liver. These findings could be related to metastasis, however no discrete well-circumscribed intrahepatic mass lesion is identified. Diffuse mild dilation of proximal small
bowel loops, indeterminate etiology
--- NOTE | 2023-11-23 12:10 | W.PN.HOSP.TC ---
Today's Communication/Plan
-
Monitor for diet tolerance
Stop fluids
Await oncology recs
Will need to follow-up final path report outpatient
Assessment / Plan
Assessment / Plan
General: No Apparent Distress and Appears Chronically Ill
HEENT: NormoCephalic and Anicteric
Respiratory: Clear
Cardiac: S1/S2 and Regular Rhythm
GI: Soft, Normal Bowel Sounds, non tender, non distended
Rectal: Deferred by Provider
Genito-urinary: Deferred by me
Musculoskeletal: No Edema and Other (Varicosis vein bilateral lower extremities)
Skin: Warm
Neuro: Awake, Alert, Oriented, AO x 3, No Motor Deficits and Nonfocal/grossly intact
Psych: Calm
#Abdominal pain nausea likely secondary to pancreatitis with concern for malignancy pancreatic (primary)
#Transaminitis
stop LR
Pain control
Check CA pending
s/p EUS/FNA with pancreatic mass in body and tail. Vascular involvement noted. CA 191 pending. Preliminary cytology concern for adeno. Await final report
Lipase elevated
CT scan significant abnormality noted. Pancreatic mass with vascular invasion.
Alk phos elevated
Oncology consulted
#Tobacco abuse
#COPD
#Right pulmonary lobe nodule
-Continue with inhalers
-Nicotine patch ordered
-follows with Dr. Rivas
#Atherosclerotic vascular disease
-A1C at 6.3
#Mild hyponatremia
-monitor off IVF. trend bmp
'
Primary hypertension
Continue losartan
Hyperlipidemia
Hold statin for now
Hypothyroidism secondary Synthroid
Hepatic steatosis
Osteopenia
IBS constipation-bowel regimen
DVT ppx-lovenox
Anticipated Discharge: Within 24 hours
Subjective/Interval History
-
Date of Service: November 23, 2023
denies abd pain
no nausea or vomiting
Objective Data
-
Labs:
Laboratory Results
11/23/23
07:56
WBC 8.4
Hgb 11.9 L
Hct 35.7 L
Plt Count 195
Sodium 129 L
Potassium 4.0
Chloride 101
Carbon Dioxide 23
BUN 12
Creatinine 0.7
Glucose 82
Calcium 9.0
Total Bilirubin 0.8
AST 68 H
ALT 140 H
Alkaline Phosphatase 234 H
Vital Signs:
Vital Signs
Temp Pulse Resp BP Pulse Ox
98.0 F 71 16 134/64 99
11/23/23 07:44 11/23/23 08:48 11/23/23 08:48 11/23/23 08:16 11/23/23 08:48
I&O
11/22/23 11/23/23 11/24/23
06:59 06:59 06:59
Intake Total 120 / 120 1660 / 1660
Balance 120 / 120 1660 / 1660
[2023-11-23 15:13] VITALS: BP 141/74
--- NOTE | 2023-11-23 15:35 | CM ---
Patient seen with , reports no new concerns at this time. Patient hopeful to discharge tomorrow. CM will continue to follow for discharge planning needs.
Plan; home no needs.
[2023-11-23 17:00] VITALS: BP 156/97
[2023-11-23] MEDS: LOVENOX 40 MG SC (17:14)
[2023-11-23] MEDS: ROXICODONE 5 MG PO (21:38)
[2023-11-23 23:00] VITALS: BP 134/64
[2023-11-23 23:52] LABS: CA 19-9 259 U/mL (<=35)
[2023-11-24] MEDS: SYNTHROID 112 MCG PO (06:15)
[2023-11-24 07:44] VITALS: BP 137/71
[2023-11-24] MEDS: NICODERM TRANSDERMAL 21 MG TRANSDERM (07:52)
[2023-11-24] MEDS: THERAGRAN 1 TABLET PO (07:52)
[2023-11-24] MEDS: COZAAR 25 MG PO (07:52)
[2023-11-24] MEDS: STRIVERDI RESPIMAT 2 PUFF INH (08:17)
[2023-11-24] MEDS: SPIRIVA RESPIMAT 2.5 MCG 2 PUFF INH (08:17)
[2023-11-24 08:29] LABS: % Basophils 0.6 % (0-2); % Eosinophils 3.1 % (0-6); % Immature Granulocytes 0.4 % (0-0.5); % Lymphocytes 23.3 % (20.5-51.1); % Monocytes 8.4 % (1.7-9.3); % Neutrophils 64.2 % (42.2-75.2); Absolute Basophils 0.1 10^3/uL (0-0.2); Absolute Eosinophils 0.3 10^3/uL (0-0.7); Absolute Lymphocytes 1.9 10^3/uL (1.2-3.4); Absolute Monocytes 0.7 10^3/uL (0.1-0.6); Absolute Neutrophils 5.3 10^3/uL (1.4-6.5); Hematocrit 34.6 % (37.0-47.0); Hemoglobin 11.6 g/dL (12.0-16.0); Mean Corp Hgb Conc. 33.5 g/dL (33.0-37.0); Mean Corpuscular Hgb 29.5 pg (27.0-31.0); Mean Platelet Volume 11.7 fL (7.4-10.4); Nucleated Red Blood Cells % 0 %; Platelet Count 186 10^3/uL (130-400); Red Blood Cell Count 3.93 10^6/uL (4.20-5.40); Red Cell Dist. Width 14.6 % (11.5-14.5); White Blood Cell Count 8.2 10^3/uL (4.8-10.8)
[2023-11-24 08:50] LABS: ALT (SGPT) 134 U/L (0-35); AST (SGOT) 74 U/L (14-36); Albumin 3.4 g/dl (3.5-5.0); Alkaline Phosphatase 270 U/L (38-126); Blood Urea Nitrogen 17 mg/dl (7-17); Calcium 8.8 mg/dl (8.4-10.2); Carbon Dioxide 25 mmol/L (22-30); Chloride 99 mmol/L (98-107); Estimated Creatinine Clearance 59 ml/min; Glucose 93 mg/dl (70-99); Potassium 4.3 mmol/L (3.5-5.1); Sodium 132 mmol/L (135-145); Total Bilirubin 0.7 mg/dl (0.2-1.3); Total Protein 6.2 g/dl (6.3-8.2); eGFR > 60.00
--- NOTE | 2023-11-24 10:18 | CM ---
Patient seen bedside, reports no new concerns to CM. Patient hopeful to discharge today. IMM reviewed, signed, placed in patients chart. CM will continue to follow for discharge planning needs.
Plan; home no needs.
--- NOTE | 2023-11-24 11:36 | W.PN.ONC2 ---
Today's Communication / Plan
-
Okay for D/C. We will schedule outpt f/u to review path.
Impression
Impression
Acute abdominal pain
Concern for pancreatic malignancy on imaging
Transaminitis
Tobacco abuse, current smoker
Unintentional weight loss
Plan
Plan
CA 19-9 modestly elevated at 259
Pathology remains pending from pancreas biopsy 11/21
No objection to D/C. Our new pt schedulers will reach out to pt 11/26.
The [facility] office has been notified of patient's case for scheduling JANET to review pathology and discuss treatment options.
We will follow. Await path.
Subjective/Objective
Chief Complaint
Heme/Onco follow up of pancreatic mass
Subjective
Pain controlled. Tolerating PO's.
Vital Signs:
Vital Signs
Temp Pulse Resp BP Pulse Ox
98.1 F 80 16 137/71 100
11/24/23 07:44 11/24/23 08:18 11/24/23 08:18 11/24/23 07:52 11/24/23 08:18
Lab Results:
Laboratory Data
WBC 8.2 10^3/uL (4.8-10.8) 11/24/23 06:43
Hgb 11.6 g/dL (12.0-16.0) L 11/24/23 06:43
Plt Count 186 10^3/uL (130-400) 11/24/23 06:43
PT 13.2 Sec (11.4-14.6) 11/22/23 07:26
INR 1.00 11/22/23 07:26
APTT 26.7 Sec (23.4-35.0) 11/22/23 07:26
eGFR > 60.00 11/24/23 06:43
Physical Exam
HEENT: Moist Mucous Membranes; No Jaundice
Cardiology: Normal Sinus Rhythm, S1 and S2
Pulmonary: Clear; No Wheezes
GI: Soft and Normal Bowel Sounds
Extremities: Pulses Present; No No C/C/E
Neuro: Non Focal
Review of Systems
Review of Systems
Constitutional: Reports Fatigue; Denies Fever
Head: Denies Sore Throat or Hearing Loss
Respiratory: Denies Dyspnea or Cough
Cardiovascular: Denies Chest Pain or Palpitations
Gastrointestinal: Denies Nausea/Vomiting or Diarrhea
Genitourinary: Denies Hematuria
Skin: Denies Rash or Pruritis
Neurological: Denies Headache or Numbness
Psychiatric: Denies Depression or Insomnia
Hem/Lymphatic: Denies Easy Bruising or Night Sweats
--- NOTE | 2023-11-24 11:46 | W.PN.HOSP.TC ---
Today's Communication/Plan
-
Outpatient follow-up follow biopsy results
Outpatient oncology results
Hold Lipitor
DC home
Assessment / Plan
Assessment / Plan
#Abdominal pain nausea likely secondary to pancreatitis with concern for malignancy pancreatic (primary)
#Transaminitis
stop LR
Denies any further pain.
Check CA 19�19 elevated 259
s/p EUS/FNA with pancreatic mass in body and tail. Vascular involvement noted. Await final report. Patient was to follow-up on results with oncology.
Lipase elevated
CT scan significant abnormality noted. Pancreatic mass with vascular invasion.
Alk phos elevated
Oncology consulted
#Tobacco abuse
#COPD
#Right pulmonary lobe nodule
-Continue with inhalers
-Nicotine patch ordered
-follows with Dr. Rivas
#Atherosclerotic vascular disease
-A1C at 6.3
#Mild hyponatremia
-monitor off IVF. trend bmp.
'
Primary hypertension
Continue losartan
Hyperlipidemia
Hold statin for now
Hypothyroidism secondary Synthroid
Hepatic steatosis
Osteopenia
IBS constipation-bowel regimen
DVT ppx-lovenox
More than 30 minutes spent in discharge including
Final examination of the patient
Summarizing hospital stay
Instructions for continuing care to all relevant caregivers
Preparation of discharge records, prescriptions, and referral forms
Total time spent (in minutes): 45
Anticipated Discharge: Today
Subjective/Interval History
-
Date of Service: November 24, 2023
Denies any abdominal pain, nausea or vomiting
Tolerating diet
States had a bowel movement
Denies lightheaded dizziness
Objective Data
-
Labs:
Laboratory Results
11/24/23
06:43
WBC 8.2
Hgb 11.6 L
Hct 34.6 L
Plt Count 186
Sodium 132 L
Potassium 4.3
Chloride 99
Carbon Dioxide 25
BUN 17
Creatinine 0.7
Glucose 93
Calcium 8.8
Total Bilirubin 0.7
AST 74 H
ALT 134 H
Alkaline Phosphatase 270 H
Vital Signs:
Vital Signs
Temp Pulse Resp BP Pulse Ox
98.1 F 80 16 137/71 100
11/24/23 07:44 11/24/23 08:18 11/24/23 08:18 11/24/23 07:52 11/24/23 08:18
I&O
11/23/23 11/24/23 11/25/23
06:59 06:59 06:59
Intake Total 1660 / 1660 840 / 840
Balance 1660 / 1660 840 / 840
Physical Exam
-
General: No Apparent Distress and Appears Chronically Ill
HEENT: Normocephalic, Atraumatic and Moist Mucous Membranes
Respiratory: Clear to Auscultation
Cardiac: Regular Rhythm and S1/S2; Negative Murmur, Rub or Gallop
GI: Soft, Nontender, Nondistended and Normal Bowel Sounds; Negative Organomegaly
Rectal: Deferred by Provider
Musculoskeletal: No Clubbing, No Cyanosis and No Edema
Skin: Negative Rash
Neuro: Awake, Alert, Oriented, AO x 3, No Motor Deficits and Nonfocal/Grossly Intact
Psych: Calm
--- NOTE | 2023-11-24 11:49 | W.DCSUMMARY ---
Discharge Summary
Discharge Data
Date of Admission: 11/21/23
Date of Discharge: 11/24/23
-
Pending Results: Yes
Additional Pending Results:
Pancreatic FNA biopsy with oncology as outpatient
Hospital Course
78 yo F with significant past medical history of tobacco abuse, COPD, atherosclerotic vascular disease, hyperlipidemia, hypothyroidism who is presenting with abdominal pain and discomfort. Patient underwent CT abdomen pelvis as outpatient which
was found to be abnormal and was recommended come into the ER. Abnormally decreased attenuation of the pancreas extending from level of the pancreatic neck through the tail, highly suspicious for primary pancreatic malignancy. Associated mild distal
pancreatic ductal dilation. As above, abnormal soft tissue attenuation representing malignancy extends beyond the margins of the pancreas. There is obliteration of the splenic vein and splenic artery with associated venous shunting and varices.
There is near occlusion of the superior mesenteric vein. There is a stricture of the left renal vein. There is encasement of celiac axis and superior mesenteric artery. There is invasion of the left adrenal gland. Diffuse mild dilation of proximal
small bowel loops, indeterminate etiology.Check CA 19�19 elevated 259. s/p EUS/FNA with pancreatic mass in body and tail. Vascular involvement noted. Await final report. Patient was to follow-up on results with oncology. No abdominal pain.
Patient was tolerating diet. Discharge home with outpatient oncology follow-up.
Discharge Plan
-
Patient Disposition: Home (Routine Discharge)
Discharge Diagnosis/Procedures: Abdomen pain, nausea secondary to pancreatitis with concern for pancreatic malignancy
Transaminitis
Mild hyponatremia
Condition: Fair
Diet: Regular
Activity: With assistance and As tolerated
Driving Restrictions: As prior to admission
Blood Work: CMP in 1 week VIA primary doctor
Activity Restrictions/Additional Instructions:
Follow-up on the pancreatic biopsy results with Hematology oncology.
Referrals:
Alphonso Dobson DO [Active] - in one to two weeks (Call to make appointment AND follow-up biopsy results)
Martha Fernando, [Family Provider] - in less than 1 week
Prescriptions:
Continued
levothyroxine 112 MCG tablet
112 mcg PO DAILY@1400
acetaminophen [Tylenol] 325 mg Tablet
650 mg PO BIDPRN PRN (Reason: mild pain)
losartan 25 mg Tablet
25 mg PO DAILY
blvxadpxiteh-ihbcdguo-dqlihq Tablet
1 tab PO DAILY
Stiolto Respimat 2.5-2.5 mcg/actuation Mist
1 puff INHALATION R DAILY@1999
Held
atorvastatin 40 mg Tablet
40 mg PO DAILY@1999
Hold Instructions: Resume on 12/11/23. Hold till improvement in LFTs.
Discharge Orders:
Discharge Patient (As Directed); Ordered 11/24/23
Ordered By: Chidi Rogers
Discharge Date and Time
Print Language: LAO
[2023-11-24 15:25] VITALS: BP 154/89
== END 2023-11-24 15:31 | disposition home or self-care (01) | DRG 436 ==
LOC: 4 WEST ACU 14:49
PROVIDERS: ADMITTING PHYSICIAN Hospitalist; CONSULT PHYSICIAN Internal Medicine Gastroenterology; CONSULT PHYSICIAN Internal Medicine Hematology & Oncology; EMERGENCY PHYSICIAN Emergency Medicine; FAMILY PHYSICIAN Family Medicine
PROC: 0FBG8ZX Excision of Pancreas, Via Natural or Artificial Opening Endoscopic, Diagnostic (ICD-10-PCS; 2023-11-22)
DX: C25.9 Malignant neoplasm of pancreas, unspecified (principal); E87.1 Hypo-osmolality and hyponatremia; K86.89 Other specified diseases of pancreas; J44.9 Chronic obstructive pulmonary disease, unspecified; E78.00 Pure hypercholesterolemia, unspecified; E03.9 Hypothyroidism, unspecified
CPT/HCPCS: 88172; 88173; 80053; 80061; 81003; 83036; 83690; 83735; 85025; 85610; 85730; 86301; 93005; 94640; 96374; 96375; 99285; 99406

== ENCOUNTER 2023-12-02 18:36 | Emergency (ER) | payer MEDICARE, OTHER, SELFPAY ==
[2023-12-02] VITALS (7 sets, daily range): BP systolic 130–144; BP diastolic 72–77; PULSE 83–94; BMI 25.7
[2023-12-02 20:40] LABS: % Basophils 0.8 % (0-2); % Eosinophils 1.6 % (0-6); % Immature Granulocytes 0.6 % (0-0.5); % Lymphocytes 12.5 % (20.5-51.1); % Monocytes 7.4 % (1.7-9.3); % Neutrophils 77.1 % (42.2-75.2); Absolute Basophils 0.1 10^3/uL (0-0.2); Absolute Eosinophils 0.2 10^3/uL (0-0.7); Absolute Immature Granulocytes 0.1 10^3/uL (0-0.05); Absolute Lymphocytes 1.3 10^3/uL (1.2-3.4); Absolute Monocytes 0.8 10^3/uL (0.1-0.6); Absolute Neutrophils 8.2 10^3/uL (1.4-6.5); Hematocrit 37.8 % (37.0-47.0); Hemoglobin 13.1 g/dL (12.0-16.0); Mean Corp Hgb Conc. 34.7 g/dL (33.0-37.0); Mean Corpuscular Hgb 30.3 pg (27.0-31.0); Mean Corpuscular Volume 87.3 fL (81.0-99.0); Mean Platelet Volume 9.7 fL (7.4-10.4); Nucleated Red Blood Cells % 0 %; Platelet Count 283 10^3/uL (130-400); Red Blood Cell Count 4.33 10^6/uL (4.20-5.40); Red Cell Dist. Width 14.8 % (11.5-14.5); White Blood Cell Count 10.6 10^3/uL (4.8-10.8)
[2023-12-02 21:01] LABS: ALT (SGPT) 138 U/L (0-35); AST (SGOT) 82 U/L (14-36); Albumin 4.5 g/dl (3.5-5.0); Alkaline Phosphatase 337 U/L (38-126); Blood Urea Nitrogen 21 mg/dl (7-17); Calcium 10.1 mg/dl (8.4-10.2); Carbon Dioxide 31 mmol/L (22-30); Chloride 94 mmol/L (98-107); Estimated Creatinine Clearance 46 ml/min; Glucose 130 mg/dl (70-99); Potassium 3.9 mmol/L (3.5-5.1); Sodium 133 mmol/L (135-145); Total Bilirubin 0.6 mg/dl (0.2-1.3); Total Protein 7.7 g/dl (6.3-8.2); eGFR > 60.00
[2023-12-02 21:02] LABS: Troponin I < 0.012 ng/ml
--- NOTE | 2023-12-02 21:13 | ED.GENMED ---
History of Present Illness
General
Chief Complaint: Fainting Sensation
Source: patient
Exam Limitations: none
Time Seen by Provider: 12/02/23 20:47
Travel History
Have you had any contact with someone who has COVID-19?: No
Do you have any symptoms of coronavirus? Fever > 100 degrees, chills, cough, shortness of breath, sore throat, loss of taste or smell, muscle aches, or headache?: No
History of Present Illness
History of Present Illness:
78-year-old female with recent diagnosis of pancreatic cancer presents with episode of lightheadedness/dizziness tonight. She was standing up doing the dishes after eating dinner and developed a faint sensation. She sat herself down. There is no
chest pain or headache. No shortness of breath. She currently feels back to her baseline. She has a plan to have a port placed at the end of this and have chemo start in the week after. She notes overall she has had slightly decreased appetite
with nausea. No other complaints at this time
Past History
Past History
ED Past Medical History: COPD and Hypercholesterolemia; Negative HTN or NIDDM
ED Past Surgical History: None
Social History
Tobacco: Smoker
Alcohol: None
Personal:
Living: with family
Phy Exam
Physical Exam
Physical Exam:
General: Well-appearing female no acute respiratory distress
HEENT: Normocephalic atraumatic neck is supple
Heart: Regular rate and rhythm no murmurs
Lungs: Bilaterally no wheezing
Abdomen soft mildly tender diffusely no guarding or rebound
Extremities: Mild pitting edema bilateral lower extremities
Neurologic: Face is symmetric finger-nose intact [id number] intact alert and oriented no facial asymmetry aphasia or dysarthria no drift
Course
Orders/Labs/Results
Orders:
Orders
12/02/23 18:47
Electrocardiogram (*1) Urgent
Reason for Study: Syncope
EKG- Treatment ONCE
12/02/23 20:29
Complete Blood Count/With Diff Urgent
Comprehensive Metabolic Panel Urgent
Troponin I Urgent
12/02/23 20:[address] [CT Head W/o Iv Contrast] Urgent
Comment:
Reason For Exam: near syncope dizziness
12/02/23 22:12
Orthostatic VS- Treatment ONCE
12/02/23 22:28
Urinalysis Reflex To Culture Urgent
Date Specimen was Collected: 12/02/23
Time Specimen was Collected: 22:27
Urine Microscopic Reflex Cult Urgent
Urine Culture Urgent
BUCK Source: U
Specimen Description:
Date Specimen was Collected: 12/02/23
Time Specimen was Collected: 22:27
12/02/23 23:28
Cefdinir [Omnicef] 300 mg PO NOW STA
Abnormal Lab Results
12/02/23 12/02/23
20:29 22:28
RDW 14.8 H %
(11.5-14.5)
Abs Immat Gran (auto) 0.1 H 10^3/uL
(0-0.05)
Absolute Neuts (auto) 8.2 H 10^3/uL
(1.4-6.5)
Absolute Monos (auto) 0.8 H 10^3/uL
(0.1-0.6)
Immature Gran % 0.6 H %
(0-0.5)
Neutrophils % 77.1 H %
(42.2-75.2)
Lymphocytes % 12.5 L %
(20.5-51.1)
Sodium 133 L mmol/L
(135-145)
Chloride 94 L mmol/L
(98-107)
Carbon Dioxide 31 H mmol/L
(22-30)
BUN 21 H mg/dl
(7-17)
Glucose 130 H mg/dl
(70-99)
AST 82 H U/L
(14-36)
ALT 138 H U/L
(0-35)
Alkaline Phosphatase 337 H U/L
(38-126)
Ur Occult Blood Reflex Trace A
(Negative)
Leukocyte Esterase Rfl 2+ A
(Negative)
Urine WBC (Reflex) 26-30 A /HPF
(0-5)
Urine Bacteria (Reflex) Few A
(Negative)
12/02/23 20:29
12/02/23 20:29
Vital Signs
Initial and Last Documented VS:
Initial Vital Signs
Temp Pulse Resp Pulse Ox
98.2 F 87 18 97
12/02/23 18:44 12/02/23 18:44 12/02/23 18:44 12/02/23 18:44
Last Documented Vital Signs
Temp Pulse Resp BP Pulse Ox
98.2 F 73 13 137/73 98
12/02/23 18:44 12/02/23 22:16 12/02/23 22:16 12/02/23 22:16 12/02/23 22:16
MDM/Problems Addressed
Differential Diagnosis Includes:
Lightheaded sensation. Consider arrhythmia versus anemia versus electrolyte abnormality versus vasovagal episode
Given recent diagnosis of pancreatic cancer and dizzy episodes CT of the head pending. Basic labs ordered.
*Critical Care Note
Total Time (30-74mins, 75-104mins- exclusive of procedures): Not Applicable
Update Note
Update Note:
Patient looks well throughout her stay here. CT of the head negative. Labs reviewed without significant findings. Patient has been ambulatory on her feet to the bathroom multiple times without any difficulty. Orthostatic vital signs are stable.
Question possible UTI but could be contaminated specimen. Will treat to cover with Omnicef. No indication for admission. Stable for discharge. I suspect possible vasovagal issue as there is no arrhythmias here
ED Attending Note
-
Portions of this chart may have been created with voice recognition software.� Occasional wrong word or��sound alike� substitutions may have occurred due to the inherent limitations of voice recognition software.
Discharge Plan
Departure
Patient Disposition: Home (Routine Discharge)
Date of Disposition: 12/02/23
Time of Disposition: 23:31
Patient with high blood pressure during this ER visit?: No
Discharge Problem:
Light-headedness
Instructions: Near Fainting (DC)
Prescriptions:
New
cefdinir 300 mg capsule
300 mg PO BID Qty: 14 0RF
No Action
levothyroxine 112 MCG tablet
112 mcg PO DAILY@1400
atorvastatin 40 mg Tablet
40 mg PO DAILY@1999
Hold Instructions: Resume on 12/11/23. Hold till improvement in LFTs.
acetaminophen [Tylenol] 325 mg Tablet
650 mg PO BIDPRN PRN (Reason: mild pain)
losartan 25 mg Tablet
25 mg PO DAILY
jygqdtzujzrp-uodongsy-zefmor Tablet
1 tab PO DAILY
Stiolto Respimat 2.5-2.5 mcg/actuation Mist
1 puff INHALATION R DAILY@1999
Referrals:
Martha Fernando DO [Family Provider] -
Activity Restrictions/Additional Instructions:
Rest. Ensure plenty of hydration. Use antibiotic as directed. Return if worse otherwise follow-up with family
Interventions
Interventions:
*General Assessment Last Done: 12/02/23 18:46
*Neglect/Abuse Screening Last Done: 12/02/23 21:00
ED- Fall Risk Assessment Last Done: 12/02/23 21:00
*ED COVID-19 Vaccine History Last Done: 12/02/23 18:46
ED- Cardiac Assessment Last Done: 12/02/23 21:00
ED- Neurological Assessment Last Done: 12/02/23 21:00
Discharge Date and Time
Print Language: MEXICAN
[2023-12-02 22:36] LABS: Urine Albumin Trace (Neg - Trace); Urine Bilirubin Negative (Negative); Urine Character Slightly Cloudy (Clear); Urine Color Straw; Urine Glucose Negative (Negative); Urine Ketone Negative (Negative); Urine Leukocyte 2+ (Negative); Urine Nitrite Negative (Negative); Urine Occult Blood Trace (Negative); Urine Urobilinogen Negative (Neg - 1+)
[2023-12-02 22:44] LABS: Urine Squamous Cell >30 /LPF (Few)
[2023-12-02 22:45] LABS: Urine Bacteria Few (Negative); Urine Red Blood Cell 0-2 /HPF (0-2); Urine White Cell 26-30 /HPF (0-5)
[2023-12-02] MEDS: OMNICEF 300 MG PO (23:48)
== END 2023-12-02 23:58 | disposition home or self-care (01) ==
LOC: EMR 18:36
PROVIDERS: Physician Assistant; EMERGENCY PHYSICIAN Emergency Medicine; FAMILY PHYSICIAN Family Medicine
DX: R42 Dizziness and giddiness (principal); J44.9 Chronic obstructive pulmonary disease, unspecified; E78.00 Pure hypercholesterolemia, unspecified; C25.9 Malignant neoplasm of pancreas, unspecified; F17.200 Nicotine dependence, unspecified, uncomplicated
CPT/HCPCS: 99284; 70450; 80053; 81003; 81015; 84484; 85025; 87086; 93005

== ENCOUNTER → 2023-12-08 08:14 | Outpatient (REF) | payer MEDICARE, OTHER, SELFPAY ==
[2023-12-08] VITALS (7 sets, daily range): BP systolic 88–136; BP diastolic 59–75
[2023-12-08] MEDS: ANCEF 10 IV (09:18)
== END ==
LOC: RADI 08:14
PROVIDERS: ATTENDING PHYSICIAN Internal Medicine Hematology & Oncology
DX: C25.1 Malignant neoplasm of body of pancreas (principal)
CPT/HCPCS: 36561; 76937; 77001; 99152; 99153; C1788

== ENCOUNTER → 2023-12-21 11:10 | Outpatient (REF) | payer MEDICARE, OTHER, SELFPAY ==
[2023-12-21 12:26] LABS: % Basophils 0.5 % (0-2); % Immature Granulocytes 0.2 % (0-0.5); % Lymphocytes 39.5 % (20.5-51.1); % Monocytes 6.1 % (1.7-9.3); % Neutrophils 52.7 % (42.2-75.2); Absolute Lymphocytes 1.6 10^3/uL (1.2-3.4); Absolute Monocytes 0.3 10^3/uL (0.1-0.6); Absolute Neutrophils 2.2 10^3/uL (1.4-6.5); Hematocrit 35.8 % (37.0-47.0); Hemoglobin 11.9 g/dL (12.0-16.0); Mean Corp Hgb Conc. 33.2 g/dL (33.0-37.0); Mean Corpuscular Volume 90.2 fL (81.0-99.0); Mean Platelet Volume 11.1 fL (7.4-10.4); Nucleated Red Blood Cells % 0 %; Platelet Count 173 10^3/uL (130-400); Red Blood Cell Count 3.97 10^6/uL (4.20-5.40); White Blood Cell Count 4.1 10^3/uL (4.8-10.8)
[2023-12-21 13:43] LABS: ALT (SGPT) 70 U/L (0-35); AST (SGOT) 60 U/L (14-36); Albumin 3.9 g/dl (3.5-5.0); Alkaline Phosphatase 318 U/L (38-126); Blood Urea Nitrogen 34 mg/dl (7-17); Calcium 9.4 mg/dl (8.4-10.2); Carbon Dioxide 30 mmol/L (22-30); Chloride 96 mmol/L (98-107); Glucose 117 mg/dl (70-99); Potassium 4.1 mmol/L (3.5-5.1); Sodium 132 mmol/L (135-145); Total Bilirubin 0.8 mg/dl (0.2-1.3); Total Protein 6.8 g/dl (6.3-8.2); eGFR > 60.00
== END ==
LOC: REG 11:10
PROVIDERS: ATTENDING PHYSICIAN Internal Medicine Hematology & Oncology; FAMILY PHYSICIAN Family Medicine
DX: C25.1 Malignant neoplasm of body of pancreas (principal)
CPT/HCPCS: 36415; 80053; 85025

== ENCOUNTER → 2023-12-28 11:28 | Outpatient (REF) | payer MEDICARE, OTHER, SELFPAY ==
[2023-12-28 12:26] LABS: % Basophils 0.7 % (0-2); % Eosinophils 1.3 % (0-6); % Immature Granulocytes 0.3 % (0-0.5); % Lymphocytes 50.5 % (20.5-51.1); % Neutrophils 43.2 % (42.2-75.2); Absolute Lymphocytes 1.5 10^3/uL (1.2-3.4); Absolute Monocytes 0.1 10^3/uL (0.1-0.6); Absolute Neutrophils 1.3 10^3/uL (1.4-6.5); Hematocrit 33.1 % (37.0-47.0); Hemoglobin 11.3 g/dL (12.0-16.0); Mean Corp Hgb Conc. 34.1 g/dL (33.0-37.0); Mean Corpuscular Hgb 30.5 pg (27.0-31.0); Mean Corpuscular Volume 89.2 fL (81.0-99.0); Mean Platelet Volume 10.9 fL (7.4-10.4); Nucleated Red Blood Cells % 0 %; Platelet Count 101 10^3/uL (130-400); Red Blood Cell Count 3.71 10^6/uL (4.20-5.40)
[2023-12-28 13:02] LABS: ALT (SGPT) 67 U/L (0-35); AST (SGOT) 55 U/L (14-36); Albumin 3.6 g/dl (3.5-5.0); Alkaline Phosphatase 321 U/L (38-126); Blood Urea Nitrogen 23 mg/dl (7-17); Calcium 8.9 mg/dl (8.4-10.2); Carbon Dioxide 27 mmol/L (22-30); Chloride 100 mmol/L (98-107); Glucose 106 mg/dl (70-99); Potassium 3.8 mmol/L (3.5-5.1); Sodium 133 mmol/L (135-145); Total Bilirubin 0.8 mg/dl (0.2-1.3); Total Protein 6.5 g/dl (6.3-8.2); eGFR > 60.00
== END ==
LOC: REG 11:28
PROVIDERS: ATTENDING PHYSICIAN Internal Medicine Hematology & Oncology; FAMILY PHYSICIAN Family Medicine
DX: C25.1 Malignant neoplasm of body of pancreas (principal)
CPT/HCPCS: 36415; 80053; 85025

== ENCOUNTER → 2024-01-11 11:41 | Outpatient (REF) | payer MEDICARE, OTHER, SELFPAY ==
[2024-01-11 12:59] LABS: % Basophils 0.2 % (0-2); % Eosinophils 0.1 % (0-6); % Immature Granulocytes 8.8 % (0-0.5); % Lymphocytes 3.9 % (20.5-51.1); % Monocytes 4.6 % (1.7-9.3); % Neutrophils 82.4 % (42.2-75.2); Absolute Basophils 0.1 10^3/uL (0-0.2); Absolute Eosinophils 0.1 10^3/uL (0-0.7); Absolute Immature Granulocytes 5.6 10^3/uL (0-0.05); Absolute Lymphocytes 2.5 10^3/uL (1.2-3.4); Absolute Monocytes 2.9 10^3/uL (0.1-0.6); Absolute Neutrophils 52.3 10^3/uL (1.4-6.5); Hematocrit 29.5 % (37.0-47.0); Mean Corp Hgb Conc. 33.9 g/dL (33.0-37.0); Mean Corpuscular Hgb 30.5 pg (27.0-31.0); Mean Corpuscular Volume 89.9 fL (81.0-99.0); Mean Platelet Volume 11.8 fL (7.4-10.4); Nucleated Red Blood Cells % 0.4 %; Platelet Count 117 10^3/uL (130-400); Red Blood Cell Count 3.28 10^6/uL (4.20-5.40); Red Cell Dist. Width 16.2 % (11.5-14.5); White Blood Cell Count 63.5 10^3/uL (4.8-10.8)
[2024-01-11 13:09] LABS: ALT (SGPT) 78 U/L (0-35); AST (SGOT) 69 U/L (14-36); Albumin 3.1 g/dl (3.5-5.0); Alkaline Phosphatase 419 U/L (38-126); Blood Urea Nitrogen 14 mg/dl (7-17); Calcium 8.8 mg/dl (8.4-10.2); Carbon Dioxide 22 mmol/L (22-30); Chloride 106 mmol/L (98-107); Glucose 107 mg/dl (70-99); Potassium 2.8 mmol/L (3.5-5.1); Sodium 140 mmol/L (135-145); Total Bilirubin 0.5 mg/dl (0.2-1.3); Total Protein 5.7 g/dl (6.3-8.2); eGFR > 60.00
[2024-01-11 15:49] LABS: Magnesium 1.5 mg/dl (1.6-2.3)
== END ==
LOC: REG 11:41
PROVIDERS: ATTENDING PHYSICIAN Internal Medicine Hematology & Oncology; FAMILY PHYSICIAN Family Medicine
DX: C25.1 Malignant neoplasm of body of pancreas (principal)
CPT/HCPCS: 36415; 80053; 83735; 85025

== ENCOUNTER 2024-01-11 12:03 | Emergency (ER) | payer MEDICARE, OTHER, SELFPAY ==
[2024-01-11 12:06] VITALS: BP 138/74
[2024-01-11 15:00] VITALS: BP 139/69
--- NOTE | 2024-01-11 15:00 | ED.GENMED ---
History of Present Illness
<Darwin Pickett PA-C - Last Filed: 01/13/24 12:10>
General
Chief Complaint: Musculo-Skeletal Complaint
Time Seen by Provider: 01/11/24 13:09
Travel History
Have you had any contact with someone who has COVID-19?: No
Do you have any symptoms of coronavirus? Fever > 100 degrees, chills, cough, shortness of breath, sore throat, loss of taste or smell, muscle aches, or headache?: No
History of Present Illness
History of Present Illness:
78-year-old female presents the emergency department for evaluation of left wrist pain. She struck the wrist forcefully on the countertop while attempting to remove ice cream from a dish. She is also concerned for nodular swelling to the right
antecubital fossa that has gradually worsened since her PET scan several weeks ago.
Past History
<Darwin Pickett PA-C - Last Filed: 01/13/24 12:10>
Past History
ED Past Medical History: COPD and Hypercholesterolemia; Negative HTN or NIDDM
ED Past Surgical History: None
Social History
Tobacco: Smoker
Alcohol: None
Personal:
Living: with family
Review of Systems
<Darwin Pickett PA-C - Last Filed: 01/13/24 12:10>
Review of Systems
Allergies reviewed?: Yes
All Other Systems: ROS reviewed and negative except as documented in HPI and ROS
Phy Exam
<KERRY Wolff Last Filed: 01/13/24 12:10>
Physical Exam
Physical Exam:
GEN: Well appearing, NAD, WDWN
HEENT: Oral mucosa moist, no scleral icterus
Cardiac: Regular rate
Lung: No respiratory distress, no tachypnea
MSK: Mild swelling and redness to the left ulnar styloid region of the wrist, normal range of motion
Skin: Good color, no pallor or jaundice, no rashes
Neuro: AO x3, moves all extremities freely
Psych: Calm, cooperative
Course
<Darwin Pickett PA-C - Last Filed: 01/13/24 12:10>
Orders/Labs/Results
Orders:
Orders
01/11/24 12:09
Wrist, Left 3 Views CR [CR Wrist - Left Min 3 Views] Urgent
Comment:
Reason For Exam: swelling
01/11/24 13:24
Venous Doppler Upr Ext Right [US Periph Venous UPPER Ext RT] Urgent
Comment:
Reason For Exam: swelling/pain after PET scan
01/11/24 13:57
Electrocardiogram (*1) Urgent
Reason for Study: QTc Monitoring
EKG- Treatment ONCE
0.9% Sodium Chloride 500 ml [Nss] 500 ml IV BOLUS
Magnesium Sulfate 2 Gram/50 ml [Magnesium Sulfate] 2 gram in 50 ml IV NOW
Potassium Chloride [KCl] 40 meq PO NOW STA
01/11/24 14:02
Potassium Chloride [KCl] 20 meq 0.9% Sodium Chloride 250 ml [Nss] 250 ml IV NOW
Vital Signs
Initial and Last Documented VS:
Initial Vital Signs
Temp Pulse Resp BP Pulse Ox
98.0 F 91 18 138/74 100
01/11/24 12:06 01/11/24 12:06 01/11/24 12:06 01/11/24 12:06 01/11/24 12:06
Last Documented Vital Signs
Temp Pulse Resp BP Pulse Ox
98.0 F 89 18 116/64 98
01/11/24 12:06 01/11/24 17:31 01/11/24 17:31 01/11/24 17:00 01/11/24 17:31
<Ashish Jameson PA-C - Last Filed: 01/11/24 17:47>
Orders/Labs/Results
Orders:
Orders
01/11/24 12:09
Wrist, Left 3 Views CR [CR Wrist - Left Min 3 Views] Urgent
Comment:
Reason For Exam: swelling
01/11/24 13:24
Venous Doppler Upr Ext Right [US Periph Venous UPPER Ext RT] Urgent
Comment:
Reason For Exam: swelling/pain after PET scan
01/11/24 13:57
Electrocardiogram (*1) Urgent
Reason for Study: QTc Monitoring
EKG- Treatment ONCE
0.9% Sodium Chloride 500 ml [Nss] 500 ml IV BOLUS
Magnesium Sulfate 2 Gram/50 ml [Magnesium Sulfate] 2 gram in 50 ml IV NOW
Potassium Chloride [KCl] 40 meq PO NOW STA
01/11/24 14:02
Potassium Chloride [KCl] 20 meq 0.9% Sodium Chloride 250 ml [Nss] 250 ml IV NOW
Vital Signs
Initial and Last Documented VS:
Initial Vital Signs
Temp Pulse Resp BP Pulse Ox
98.0 F 91 18 138/74 100
01/11/24 12:06 01/11/24 12:06 01/11/24 12:06 01/11/24 12:06 01/11/24 12:06
Last Documented Vital Signs
Temp Pulse Resp BP Pulse Ox
98.0 F 89 18 116/64 98
01/11/24 12:06 01/11/24 17:31 01/11/24 17:31 01/11/24 17:00 01/11/24 17:31
<Darwin Pickett PA-C - Last Filed: 01/13/24 12:10>
MDM/Problems Addressed
MDM/Problems Addressed:
While in the emergency department obtaining an ultrasound to rule out DVT of the right upper extremity, we were contacted by the lab as the patient had outpatient labs on a routine basis this morning but noted hypokalemia of 2.8. The patient has
had diarrhea for the past several days. She is scheduled to receive chemotherapy tomorrow. She does not want to be admitted to the hospital on the basis of chemo appointment. Will receive IV and oral potassium/magnesium repletion, will have labs
redrawn tomorrow chemotherapy
<Ashish Jameson PA-C - Last Filed: 01/11/24 17:47>
*Critical Care Note
Total Time (30-74mins, 75-104mins- exclusive of procedures): Not Applicable
<Ashish Jameson PA-C - Last Filed: 01/11/24 17:47>
Patient Management
Escalation/DeEscalation of care consider admission/obs:
Patient completed her potassium infusion without difficulty. She is otherwise stable for discharge home and will repeat labs done tomorrow.
ED Attending Note
<Darwin Pickett PA-C - Last Filed: 01/13/24 12:10>
-
Portions of this chart may have been created with voice recognition software.� Occasional wrong word or��sound alike� substitutions may have occurred due to the inherent limitations of voice recognition software.
Discharge Plan
Departure
Patient Disposition: Home (Routine Discharge)
Date of Disposition: 01/11/24
Time of Disposition: 17:33
Patient with high blood pressure during this ER visit?: No
Discharge Problem:
Acute hypokalemia, Contusion of left wrist, Hematoma of right upper extremity
Instructions: Hypokalemia
Prescriptions:
No Action
levothyroxine 112 MCG tablet
112 mcg PO DAILY@1400
atorvastatin 40 mg Tablet
40 mg PO DAILY@1999
Hold Instructions: Resume on 12/11/23. Hold till improvement in LFTs.
losartan 25 mg Tablet
25 mg PO DAILY
iuxjdttgwrnu-tcgxewgo-oyttix Tablet
1 tab PO DAILY
Stiolto Respimat 2.5-2.5 mcg/actuation Mist
1 puff INHALATION R DAILY@1999
cefdinir 300 mg capsule
300 mg PO BID Qty: 14 0RF
Referrals:
Martha Fernando DO [Family Provider] -
Activity Restrictions/Additional Instructions:
Your potassium levels need to be rechecked tomorrow when you go to chemotherapy
Interventions
Interventions:
*Risk Screen - Suicide Last Done: 01/11/24 12:06
*General Assessment Last Done: 01/11/24 12:06
*Neglect/Abuse Screening Last Done: 01/11/24 12:06
ED- Fall Risk Assessment Last Done: 01/11/24 12:54
*ED COVID-19 Vaccine History Last Done: 01/11/24 12:50
*Nursing Disposition Last Done: 01/11/24 17:45
ED-Musculoskeletal Assessment Last Done: 01/11/24 12:54
Discharge Date and Time
Discharge Date/Time: 01/11/24 17:57
Print Language: FILIPINO
[2024-01-11] MEDS: KCL 40 MEQ PO (15:13)
[2024-01-11] MEDS: KCL 260 MEQ IV (15:15)
[2024-01-11] MEDS: NSS 500 IV (15:17)
[2024-01-11] MEDS: MAGNESIUM SULFATE 50 IV (15:17)
[2024-01-11 16:00] VITALS: BP 122/62
[2024-01-11 17:00] VITALS: BP 116/64
--- NOTE | 2024-01-11 17:54 | VATNOTE ---
Right SQ port flushed with 500 units of heparin and Deaccessed.
== END 2024-01-11 17:57 | disposition home or self-care (01) ==
LOC: EMR 12:03
PROVIDERS: EMERGENCY PHYSICIAN Emergency Medicine; FAMILY PHYSICIAN Family Medicine
DX: E87.6 Hypokalemia (principal); S40.021A Contusion of right upper arm, initial encounter; S60.212A Contusion of left wrist, initial encounter; W22.8XXA Striking against or struck by other objects, initial encounter; J44.9 Chronic obstructive pulmonary disease, unspecified; E78.00 Pure hypercholesterolemia, unspecified; F17.200 Nicotine dependence, unspecified, uncomplicated; R22.31 Localized swelling, mass and lump, right upper limb
CPT/HCPCS: 99284; 96365; 96366; 73110; 93005; 93971

== ENCOUNTER → 2024-01-12 13:38 | Outpatient (REF) | payer MEDICARE, OTHER, SELFPAY ==
[2024-01-12 12:04] LABS: Blood Urea Nitrogen 11 mg/dl (7-17); Calcium 8.4 mg/dl (8.4-10.2); Carbon Dioxide 23 mmol/L (22-30); Chloride 108 mmol/L (98-107); Glucose 98 mg/dl (70-99); Magnesium 1.9 mg/dl (1.6-2.3); Potassium 3.6 mmol/L (3.5-5.1); Sodium 140 mmol/L (135-145); eGFR > 60.00
== END ==
LOC: OIDL 13:38
PROVIDERS: ATTENDING PHYSICIAN Nurse Practitioner Adult Health
DX: C25.1 Malignant neoplasm of body of pancreas (principal)
CPT/HCPCS: 80048; 83735

== ENCOUNTER → 2024-01-18 09:39 | Outpatient (REF) | payer MEDICARE, OTHER, SELFPAY ==
[2024-01-18 10:40] LABS: % Basophils 0.5 % (0-2); % Eosinophils 0.6 % (0-6); % Immature Granulocytes 1.5 % (0-0.5); % Lymphocytes 7.4 % (20.5-51.1); % Monocytes 6.7 % (1.7-9.3); % Neutrophils 83.3 % (42.2-75.2); Absolute Basophils 0.2 10^3/uL (0-0.2); Absolute Eosinophils 0.2 10^3/uL (0-0.7); Absolute Immature Granulocytes 0.4 10^3/uL (0-0.05); Absolute Monocytes 1.9 10^3/uL (0.1-0.6); Hematocrit 28.4 % (37.0-47.0); Hemoglobin 9.6 g/dL (12.0-16.0); Mean Corp Hgb Conc. 33.8 g/dL (33.0-37.0); Mean Corpuscular Hgb 30.5 pg (27.0-31.0); Mean Corpuscular Volume 90.2 fL (81.0-99.0); Nucleated Red Blood Cells % 0 %; Red Blood Cell Count 3.15 10^6/uL (4.20-5.40); Red Cell Dist. Width 17.7 % (11.5-14.5); White Blood Cell Count 27.6 10^3/uL (4.8-10.8)
[2024-01-18 12:23] LABS: ALT (SGPT) 49 U/L (0-35); AST (SGOT) 50 U/L (14-36); Albumin 3.1 g/dl (3.5-5.0); Alkaline Phosphatase 400 U/L (38-126); Blood Urea Nitrogen 13 mg/dl (7-17); Carbon Dioxide 25 mmol/L (22-30); Chloride 104 mmol/L (98-107); Glucose 100 mg/dl (70-99); Potassium 4.1 mmol/L (3.5-5.1); Sodium 139 mmol/L (135-145); Total Bilirubin 0.5 mg/dl (0.2-1.3); Total Protein 5.9 g/dl (6.3-8.2); eGFR > 60.00
== END ==
LOC: REG 09:39
PROVIDERS: ATTENDING PHYSICIAN Internal Medicine Hematology & Oncology; FAMILY PHYSICIAN Family Medicine
DX: C25.1 Malignant neoplasm of body of pancreas (principal)
CPT/HCPCS: 36415; 80053; 85025; 87045; 87046; 87077; 87324; 87427; 87449

== ENCOUNTER → 2024-01-19 15:25 | Outpatient (REF) | payer MEDICARE, OTHER, SELFPAY ==
[2024-01-19 12:05] LABS: % Basophils 0.5 % (0-2); % Eosinophils 0.7 % (0-6); % Immature Granulocytes 1.3 % (0-0.5); % Lymphocytes 7.2 % (20.5-51.1); % Neutrophils 83.3 % (42.2-75.2); Absolute Basophils 0.1 10^3/uL (0-0.2); Absolute Eosinophils 0.2 10^3/uL (0-0.7); Absolute Immature Granulocytes 0.3 10^3/uL (0-0.05); Absolute Lymphocytes 1.8 10^3/uL (1.2-3.4); Absolute Monocytes 1.7 10^3/uL (0.1-0.6); Absolute Neutrophils 20.4 10^3/uL (1.4-6.5); Hematocrit 27.1 % (37.0-47.0); Hemoglobin 9.5 g/dL (12.0-16.0); Mean Corp Hgb Conc. 35.1 g/dL (33.0-37.0); Mean Corpuscular Hgb 31.1 pg (27.0-31.0); Mean Corpuscular Volume 88.9 fL (81.0-99.0); Nucleated Red Blood Cells % 0 %; Red Blood Cell Count 3.05 10^6/uL (4.20-5.40); Red Cell Dist. Width 17.6 % (11.5-14.5); White Blood Cell Count 24.5 10^3/uL (4.8-10.8)
== END ==
LOC: OIDL 15:25
PROVIDERS: ATTENDING PHYSICIAN Internal Medicine Hematology & Oncology
DX: C25.1 Malignant neoplasm of body of pancreas (principal)
CPT/HCPCS: 85025

== ENCOUNTER → 2024-01-23 13:25 | Outpatient (REF) | payer MEDICARE, OTHER, SELFPAY ==
[2024-01-23 14:04] LABS: % Basophils 0.4 % (0-2); % Eosinophils 1.7 % (0-6); % Immature Granulocytes 0.5 % (0-0.5); % Lymphocytes 8.7 % (20.5-51.1); % Monocytes 7.1 % (1.7-9.3); % Neutrophils 81.6 % (42.2-75.2); Absolute Basophils 0.1 10^3/uL (0-0.2); Absolute Eosinophils 0.4 10^3/uL (0-0.7); Absolute Immature Granulocytes 0.1 10^3/uL (0-0.05); Absolute Monocytes 1.7 10^3/uL (0.1-0.6); Absolute Neutrophils 19.1 10^3/uL (1.4-6.5); Hematocrit 30.3 % (37.0-47.0); Mean Corpuscular Hgb 30.7 pg (27.0-31.0); Mean Corpuscular Volume 92.9 fL (81.0-99.0); Platelet Count 398 10^3/uL (130-400); Red Blood Cell Count 3.26 10^6/uL (4.20-5.40); Red Cell Dist. Width 18.3 % (11.5-14.5); White Blood Cell Count 23.4 10^3/uL (4.8-10.8)
[2024-01-23 14:51] LABS: ALT (SGPT) 45 U/L (0-35); AST (SGOT) 50 U/L (14-36); Albumin 3.5 g/dl (3.5-5.0); Alkaline Phosphatase 380 U/L (38-126); Blood Urea Nitrogen 16 mg/dl (7-17); Calcium 9.3 mg/dl (8.4-10.2); Carbon Dioxide 27 mmol/L (22-30); Chloride 100 mmol/L (98-107); Glucose 87 mg/dl (70-99); Potassium 4.5 mmol/L (3.5-5.1); Sodium 137 mmol/L (135-145); Total Bilirubin 0.6 mg/dl (0.2-1.3); Total Protein 6.6 g/dl (6.3-8.2); eGFR > 60.00
== END ==
LOC: OIDL 13:25
PROVIDERS: ATTENDING PHYSICIAN Internal Medicine Hematology & Oncology
DX: C25.1 Malignant neoplasm of body of pancreas (principal)
CPT/HCPCS: 36415; 80053; 85025

== ENCOUNTER → 2024-01-31 10:51 | Outpatient (REF) | payer MEDICARE, OTHER, SELFPAY ==
[2024-01-31 11:13] LABS: % Basophils 0.6 % (0-2); % Eosinophils 1.9 % (0-6); % Immature Granulocytes 0.2 % (0-0.5); % Lymphocytes 13.5 % (20.5-51.1); % Monocytes 1.5 % (1.7-9.3); % Neutrophils 82.3 % (42.2-75.2); Absolute Basophils 0.1 10^3/uL (0-0.2); Absolute Eosinophils 0.2 10^3/uL (0-0.7); Absolute Lymphocytes 1.6 10^3/uL (1.2-3.4); Absolute Monocytes 0.2 10^3/uL (0.1-0.6); Hematocrit 29.1 % (37.0-47.0); Hemoglobin 9.8 g/dL (12.0-16.0); Mean Corp Hgb Conc. 33.7 g/dL (33.0-37.0); Mean Corpuscular Hgb 31.6 pg (27.0-31.0); Mean Corpuscular Volume 93.9 fL (81.0-99.0); Platelet Count 291 10^3/uL (130-400); White Blood Cell Count 12.1 10^3/uL (4.8-10.8)
[2024-01-31 12:24] LABS: ALT (SGPT) 56 U/L (0-35); AST (SGOT) 55 U/L (14-36); Albumin 3.4 g/dl (3.5-5.0); Alkaline Phosphatase 382 U/L (38-126); Blood Urea Nitrogen 21 mg/dl (7-17); Calcium 8.9 mg/dl (8.4-10.2); Carbon Dioxide 29 mmol/L (22-30); Chloride 100 mmol/L (98-107); Glucose 112 mg/dl (70-99); Magnesium 2.3 mg/dl (1.6-2.3); Potassium 4.4 mmol/L (3.5-5.1); Sodium 134 mmol/L (135-145); Total Bilirubin 0.7 mg/dl (0.2-1.3); Total Protein 6.4 g/dl (6.3-8.2); eGFR > 60.00
== END ==
LOC: OIDL 10:51
PROVIDERS: ATTENDING PHYSICIAN Internal Medicine Hematology & Oncology
DX: C25.1 Malignant neoplasm of body of pancreas (principal)
CPT/HCPCS: 36415; 80053; 83735; 85025

== ENCOUNTER → 2024-02-07 11:24 | Outpatient (REF) | payer MEDICARE, OTHER, SELFPAY ==
[2024-02-07 13:04] LABS: % Basophils 0.7 % (0-2); % Eosinophils 1.6 % (0-6); % Immature Granulocytes 0.4 % (0-0.5); % Lymphocytes 19.7 % (20.5-51.1); % Monocytes 1.1 % (1.7-9.3); % Neutrophils 76.5 % (42.2-75.2); Absolute Basophils 0.1 10^3/uL (0-0.2); Absolute Eosinophils 0.2 10^3/uL (0-0.7); Absolute Lymphocytes 1.8 10^3/uL (1.2-3.4); Absolute Monocytes 0.1 10^3/uL (0.1-0.6); Hematocrit 30.2 % (37.0-47.0); Hemoglobin 10.1 g/dL (12.0-16.0); Mean Corp Hgb Conc. 33.4 g/dL (33.0-37.0); Mean Corpuscular Hgb 31.6 pg (27.0-31.0); Mean Corpuscular Volume 94.4 fL (81.0-99.0); Mean Platelet Volume 10.7 fL (7.4-10.4); Nucleated Red Blood Cells % 0 %; Platelet Count 156 10^3/uL (130-400); Red Cell Dist. Width 18.4 % (11.5-14.5); White Blood Cell Count 9.1 10^3/uL (4.8-10.8)
[2024-02-07 13:33] LABS: ALT (SGPT) 60 U/L (0-35); AST (SGOT) 57 U/L (14-36); Albumin 3.7 g/dl (3.5-5.0); Alkaline Phosphatase 415 U/L (38-126); Blood Urea Nitrogen 20 mg/dl (7-17); Calcium 8.8 mg/dl (8.4-10.2); Carbon Dioxide 28 mmol/L (22-30); Chloride 100 mmol/L (98-107); Glucose 104 mg/dl (70-99); Potassium 4.5 mmol/L (3.5-5.1); Sodium 135 mmol/L (135-145); Total Bilirubin 0.6 mg/dl (0.2-1.3); Total Protein 6.7 g/dl (6.3-8.2); eGFR > 60.00
== END ==
LOC: REG 11:24
PROVIDERS: ATTENDING PHYSICIAN Internal Medicine Hematology & Oncology; FAMILY PHYSICIAN Family Medicine
DX: C25.1 Malignant neoplasm of body of pancreas (principal)
CPT/HCPCS: 36415; 80053; 85025

== ENCOUNTER → 2024-02-21 10:51 | Outpatient (REF) | payer MEDICARE, OTHER, SELFPAY ==
[2024-02-21 11:09] LABS: Hematocrit 31.3 % (37.0-47.0); Hemoglobin 10.4 g/dL (12.0-16.0); Mean Corp Hgb Conc. 33.2 g/dL (33.0-37.0); Mean Corpuscular Hgb 32.2 pg (27.0-31.0); Mean Corpuscular Volume 96.9 fL (81.0-99.0); Mean Platelet Volume 10.7 fL (7.4-10.4); Platelet Count 209 10^3/uL (130-400); Red Blood Cell Count 3.23 10^6/uL (4.20-5.40); Red Cell Dist. Width 21.6 % (11.5-14.5)
[2024-02-21 11:18] LABS: % Basophils 0.7 % (0-2); % Eosinophils 0.6 % (0-6); % Immature Granulocytes 7.9 % (0-0.5); % Lymphocytes 5.6 % (20.5-51.1); % Monocytes 4.3 % (1.7-9.3); % Neutrophils 80.9 % (42.2-75.2); Absolute Basophils 0.4 10^3/uL (0-0.2); Absolute Eosinophils 0.4 10^3/uL (0-0.7); Absolute Immature Granulocytes 4.7 10^3/uL (0-0.05); Absolute Lymphocytes 3.3 10^3/uL (1.2-3.4); Absolute Monocytes 2.6 10^3/uL (0.1-0.6); Absolute Neutrophils 48.6 10^3/uL (1.4-6.5)
[2024-02-21 12:41] LABS: ALT (SGPT) 89 U/L (0-35); AST (SGOT) 75 U/L (14-36); Albumin 3.8 g/dl (3.5-5.0); Alkaline Phosphatase 462 U/L (38-126); Blood Urea Nitrogen 16 mg/dl (7-17); Calcium 9.3 mg/dl (8.4-10.2); Carbon Dioxide 26 mmol/L (22-30); Chloride 102 mmol/L (98-107); Glucose 71 mg/dl (70-99); Sodium 136 mmol/L (135-145); Total Bilirubin 0.4 mg/dl (0.2-1.3); Total Protein 6.6 g/dl (6.3-8.2); eGFR > 60.00
[2024-02-24 01:21] LABS: CA 19-9 100 U/mL (<=35)
== END ==
LOC: OIDL 10:51
PROVIDERS: ATTENDING PHYSICIAN Internal Medicine Hematology & Oncology; FAMILY PHYSICIAN Family Medicine
DX: C25.1 Malignant neoplasm of body of pancreas (principal)
CPT/HCPCS: 36415; 80053; 85025; 86301

== ENCOUNTER → 2024-02-28 10:42 | Outpatient (REF) | payer MEDICARE, OTHER, SELFPAY ==
[2024-02-28 11:01] LABS: % Basophils 0.5 % (0-2); % Eosinophils 0.4 % (0-6); % Immature Granulocytes 0.7 % (0-0.5); % Lymphocytes 11.3 % (20.5-51.1); % Neutrophils 85.1 % (42.2-75.2); Absolute Basophils 0.1 10^3/uL (0-0.2); Absolute Eosinophils 0.1 10^3/uL (0-0.7); Absolute Immature Granulocytes 0.1 10^3/uL (0-0.05); Absolute Lymphocytes 1.3 10^3/uL (1.2-3.4); Absolute Monocytes 0.2 10^3/uL (0.1-0.6); Absolute Neutrophils 9.8 10^3/uL (1.4-6.5); Hematocrit 30.5 % (37.0-47.0); Hemoglobin 10.1 g/dL (12.0-16.0); Mean Corp Hgb Conc. 33.1 g/dL (33.0-37.0); Mean Corpuscular Hgb 32.5 pg (27.0-31.0); Mean Corpuscular Volume 98.1 fL (81.0-99.0); Mean Platelet Volume 10.8 fL (7.4-10.4); Platelet Count 430 10^3/uL (130-400); Red Blood Cell Count 3.11 10^6/uL (4.20-5.40); Red Cell Dist. Width 20.4 % (11.5-14.5); White Blood Cell Count 11.6 10^3/uL (4.8-10.8)
[2024-02-28 11:56] LABS: ALT (SGPT) 64 U/L (0-35); AST (SGOT) 50 U/L (14-36); Albumin 3.8 g/dl (3.5-5.0); Alkaline Phosphatase 406 U/L (38-126); Blood Urea Nitrogen 24 mg/dl (7-17); Calcium 9.2 mg/dl (8.4-10.2); Carbon Dioxide 26 mmol/L (22-30); Chloride 100 mmol/L (98-107); Glucose 108 mg/dl (70-99); Potassium 4.8 mmol/L (3.5-5.1); Sodium 134 mmol/L (135-145); Total Bilirubin 0.8 mg/dl (0.2-1.3); Total Protein 6.5 g/dl (6.3-8.2); eGFR > 60.00
== END ==
LOC: OIDL 10:42
PROVIDERS: ATTENDING PHYSICIAN Internal Medicine Hematology & Oncology; PRIMARYCARE PHYSICIAN Family Medicine
DX: C25.1 Malignant neoplasm of body of pancreas (principal)
CPT/HCPCS: 36415; 80053; 85025

== ENCOUNTER → 2024-03-06 11:10 | Outpatient (REF) | payer MEDICARE, OTHER, SELFPAY ==
[2024-03-06 11:30] LABS: % Basophils 0.5 % (0-2); % Eosinophils 1.2 % (0-6); % Immature Granulocytes 0.3 % (0-0.5); % Lymphocytes 22.2 % (20.5-51.1); % Monocytes 1.7 % (1.7-9.3); % Neutrophils 74.1 % (42.2-75.2); Absolute Eosinophils 0.1 10^3/uL (0-0.7); Absolute Lymphocytes 1.5 10^3/uL (1.2-3.4); Absolute Monocytes 0.1 10^3/uL (0.1-0.6); Absolute Neutrophils 4.9 10^3/uL (1.4-6.5); Hematocrit 28.4 % (37.0-47.0); Hemoglobin 9.5 g/dL (12.0-16.0); Mean Corp Hgb Conc. 33.5 g/dL (33.0-37.0); Mean Corpuscular Hgb 33.3 pg (27.0-31.0); Mean Corpuscular Volume 99.6 fL (81.0-99.0); Mean Platelet Volume 10.6 fL (7.4-10.4); Platelet Count 176 10^3/uL (130-400); Red Blood Cell Count 2.85 10^6/uL (4.20-5.40); Red Cell Dist. Width 19.8 % (11.5-14.5); White Blood Cell Count 6.6 10^3/uL (4.8-10.8)
[2024-03-06 12:21] LABS: ALT (SGPT) 34 U/L (0-35); AST (SGOT) 32 U/L (14-36); Albumin 3.6 g/dl (3.5-5.0); Alkaline Phosphatase 338 U/L (38-126); Blood Urea Nitrogen 20 mg/dl (7-17); Calcium 8.7 mg/dl (8.4-10.2); Carbon Dioxide 28 mmol/L (22-30); Chloride 102 mmol/L (98-107); Glucose 112 mg/dl (70-99); Potassium 4.4 mmol/L (3.5-5.1); Sodium 136 mmol/L (135-145); Total Bilirubin 0.4 mg/dl (0.2-1.3); Total Protein 6.2 g/dl (6.3-8.2); eGFR > 60.00
== END ==
LOC: OIDL 11:10
PROVIDERS: ATTENDING PHYSICIAN Internal Medicine Hematology & Oncology; FAMILY PHYSICIAN Family Medicine
DX: C25.1 Malignant neoplasm of body of pancreas (principal)
CPT/HCPCS: 36415; 80053; 85025

== ENCOUNTER → 2024-03-20 10:53 | Outpatient (REF) | payer MEDICARE, OTHER, SELFPAY ==
[2024-03-20 14:29] LABS: ALT (SGPT) 36 U/L (0-35); AST (SGOT) 38 U/L (14-36); Albumin 3.7 g/dl (3.5-5.0); Alkaline Phosphatase 303 U/L (38-126); Blood Urea Nitrogen 14 mg/dl (7-17); Calcium 8.8 mg/dl (8.4-10.2); Carbon Dioxide 27 mmol/L (22-30); Chloride 100 mmol/L (98-107); Glucose 74 mg/dl (70-99); Potassium 3.6 mmol/L (3.5-5.1); Sodium 137 mmol/L (135-145); Total Bilirubin 0.4 mg/dl (0.2-1.3); Total Protein 6.3 g/dl (6.3-8.2); eGFR > 60.00
[2024-03-20 15:14] LABS: % Basophils 0.5 % (0-2); % Eosinophils 0.6 % (0-6); % Immature Granulocytes 8.2 % (0-0.5); % Lymphocytes 5.4 % (20.5-51.1); % Monocytes 3.7 % (1.7-9.3); % Neutrophils 81.6 % (42.2-75.2); Absolute Basophils 0.3 10^3/uL (0-0.2); Absolute Eosinophils 0.3 10^3/uL (0-0.7); Absolute Immature Granulocytes 4.3 10^3/uL (0-0.05); Absolute Lymphocytes 2.9 10^3/uL (1.2-3.4); Absolute Neutrophils 43.2 10^3/uL (1.4-6.5); Hematocrit 30.4 % (37.0-47.0); Hemoglobin 10.1 g/dL (12.0-16.0); Mean Corp Hgb Conc. 33.2 g/dL (33.0-37.0); Mean Corpuscular Volume 102.4 fL (81.0-99.0); Mean Platelet Volume 11.4 fL (7.4-10.4); Nucleated Red Blood Cells % 0.2 %; Platelet Count 194 10^3/uL (130-400); Red Blood Cell Count 2.97 10^6/uL (4.20-5.40); Red Cell Dist. Width 20.8 % (11.5-14.5); White Blood Cell Count 52.9 10^3/uL (4.8-10.8)
== END ==
LOC: OIDL 10:53
PROVIDERS: ATTENDING PHYSICIAN Internal Medicine Hematology & Oncology; FAMILY PHYSICIAN Family Medicine
DX: C25.1 Malignant neoplasm of body of pancreas (principal)
CPT/HCPCS: 36415; 80053; 85025

== ENCOUNTER → 2024-04-03 10:47 | Outpatient (REF) | payer MEDICARE, OTHER, SELFPAY ==
[2024-04-03 10:56] LABS: % Basophils 0.7 % (0-2); % Eosinophils 2.7 % (0-6); % Immature Granulocytes 0.3 % (0-0.5); % Lymphocytes 13.8 % (20.5-51.1); % Monocytes 12.3 % (1.7-9.3); % Neutrophils 70.2 % (42.2-75.2); Absolute Basophils 0.1 10^3/uL (0-0.2); Absolute Eosinophils 0.3 10^3/uL (0-0.7); Absolute Lymphocytes 1.6 10^3/uL (1.2-3.4); Absolute Monocytes 1.4 10^3/uL (0.1-0.6); Absolute Neutrophils 8.1 10^3/uL (1.4-6.5); Hematocrit 31.6 % (37.0-47.0); Hemoglobin 10.3 g/dL (12.0-16.0); Mean Corp Hgb Conc. 32.6 g/dL (33.0-37.0); Mean Corpuscular Hgb 32.9 pg (27.0-31.0); Mean Platelet Volume 10.2 fL (7.4-10.4); Platelet Count 197 10^3/uL (130-400); Red Blood Cell Count 3.13 10^6/uL (4.20-5.40); White Blood Cell Count 11.6 10^3/uL (4.8-10.8)
[2024-04-03 13:57] LABS: ALT (SGPT) 27 U/L (0-35); AST (SGOT) 29 U/L (14-36); Albumin 3.8 g/dl (3.5-5.0); Alkaline Phosphatase 197 U/L (38-126); Blood Urea Nitrogen 22 mg/dl (7-17); Calcium 9.1 mg/dl (8.4-10.2); Carbon Dioxide 28 mmol/L (22-30); Chloride 102 mmol/L (98-107); Glucose 85 mg/dl (70-99); Potassium 4.5 mmol/L (3.5-5.1); Sodium 136 mmol/L (135-145); Total Bilirubin 0.4 mg/dl (0.2-1.3); Total Protein 6.3 g/dl (6.3-8.2); eGFR > 60.00
== END ==
LOC: OIDL 10:47
PROVIDERS: ATTENDING PHYSICIAN Internal Medicine Hematology & Oncology; FAMILY PHYSICIAN Family Medicine
DX: C25.1 Malignant neoplasm of body of pancreas (principal)
CPT/HCPCS: 36415; 80053; 85025

== ENCOUNTER → 2024-04-08 10:19 | Outpatient (REF) | payer MEDICARE, OTHER, SELFPAY | LOC: RAD 10:19 | PROVIDERS: ATTENDING PHYSICIAN Internal Medicine Hematology & Oncology; FAMILY PHYSICIAN Family Medicine | DX: C25.1 Malignant neoplasm of body of pancreas (principal) | CPT/HCPCS: 71260; 74177; Q9967 ==

== ENCOUNTER → 2024-04-17 10:55 | Outpatient (REF) | payer MEDICARE, OTHER, SELFPAY ==
[2024-04-17 13:21] LABS: % Basophils 0.6 % (0-2); % Eosinophils 0.8 % (0-6); % Immature Granulocytes 5.3 % (0-0.5); % Lymphocytes 4.8 % (20.5-51.1); % Monocytes 3.7 % (1.7-9.3); % Neutrophils 84.8 % (42.2-75.2); Absolute Basophils 0.3 10^3/uL (0-0.2); Absolute Eosinophils 0.5 10^3/uL (0-0.7); Absolute Immature Granulocytes 3.1 10^3/uL (0-0.05); Absolute Lymphocytes 2.8 10^3/uL (1.2-3.4); Absolute Monocytes 2.2 10^3/uL (0.1-0.6); Absolute Neutrophils 50.1 10^3/uL (1.4-6.5); Hematocrit 33.8 % (37.0-47.0); Hemoglobin 11.2 g/dL (12.0-16.0); Mean Corp Hgb Conc. 33.1 g/dL (33.0-37.0); Mean Corpuscular Volume 99.7 fL (81.0-99.0); Mean Platelet Volume 11.3 fL (7.4-10.4); Nucleated Red Blood Cells % 0.1 %; Platelet Count 165 10^3/uL (130-400); Red Blood Cell Count 3.39 10^6/uL (4.20-5.40); White Blood Cell Count 59.1 10^3/uL (4.8-10.8)
[2024-04-17 13:32] LABS: ALT (SGPT) 58 U/L (0-35); AST (SGOT) 48 U/L (14-36); Alkaline Phosphatase 336 U/L (38-126); Blood Urea Nitrogen 16 mg/dl (7-17); Calcium 9.5 mg/dl (8.4-10.2); Carbon Dioxide 29 mmol/L (22-30); Chloride 99 mmol/L (98-107); Glucose 85 mg/dl (70-99); Potassium 3.8 mmol/L (3.5-5.1); Sodium 135 mmol/L (135-145); Total Bilirubin 0.4 mg/dl (0.2-1.3); Total Protein 6.7 g/dl (6.3-8.2); eGFR > 60.00
[2024-04-20 05:20] LABS: CA 19-9 38 U/mL (<=35)
== END ==
LOC: OIDL 10:55
PROVIDERS: ATTENDING PHYSICIAN Internal Medicine Hematology & Oncology; FAMILY PHYSICIAN Family Medicine
DX: C25.1 Malignant neoplasm of body of pancreas (principal)
CPT/HCPCS: 36415; 80053; 85025; 86301

== ENCOUNTER → 2024-05-01 11:01 | Outpatient (REF) | payer MEDICARE, OTHER, SELFPAY ==
[2024-05-01 11:18] LABS: % Basophils 0.5 % (0-2); % Eosinophils 3.3 % (0-6); % Immature Granulocytes 0.3 % (0-0.5); % Lymphocytes 13.6 % (20.5-51.1); % Monocytes 13.2 % (1.7-9.3); % Neutrophils 69.1 % (42.2-75.2); Absolute Basophils 0.1 10^3/uL (0-0.2); Absolute Eosinophils 0.4 10^3/uL (0-0.7); Absolute Lymphocytes 1.4 10^3/uL (1.2-3.4); Absolute Monocytes 1.4 10^3/uL (0.1-0.6); Absolute Neutrophils 7.3 10^3/uL (1.4-6.5); Hematocrit 33.4 % (37.0-47.0); Hemoglobin 10.8 g/dL (12.0-16.0); Mean Corp Hgb Conc. 32.3 g/dL (33.0-37.0); Mean Corpuscular Hgb 31.7 pg (27.0-31.0); Mean Corpuscular Volume 97.9 fL (81.0-99.0); Mean Platelet Volume 9.9 fL (7.4-10.4); Platelet Count 207 10^3/uL (130-400); Red Blood Cell Count 3.41 10^6/uL (4.20-5.40); White Blood Cell Count 10.6 10^3/uL (4.8-10.8)
[2024-05-01 13:01] LABS: ALT (SGPT) 22 U/L (0-35); AST (SGOT) 24 U/L (14-36); Albumin 3.8 g/dl (3.5-5.0); Alkaline Phosphatase 213 U/L (38-126); Blood Urea Nitrogen 17 mg/dl (7-17); Calcium 9.1 mg/dl (8.4-10.2); Carbon Dioxide 27 mmol/L (22-30); Chloride 99 mmol/L (98-107); Glucose 92 mg/dl (70-99); Potassium 4.3 mmol/L (3.5-5.1); Sodium 137 mmol/L (135-145); Total Bilirubin 0.5 mg/dl (0.2-1.3); Total Protein 6.4 g/dl (6.3-8.2); eGFR > 60.00
== END ==
LOC: OIDL 11:01
PROVIDERS: ATTENDING PHYSICIAN Internal Medicine Hematology & Oncology; FAMILY PHYSICIAN Family Medicine
DX: C25.1 Malignant neoplasm of body of pancreas (principal)
CPT/HCPCS: 36415; 80053; 85025

== ENCOUNTER → 2024-05-15 11:07 | Outpatient (REF) | payer MEDICARE, OTHER, SELFPAY ==
[2024-05-15 11:15] LABS: % Basophils 0.1 % (0-2); % Eosinophils 0.8 % (0-6); % Immature Granulocytes 4.3 % (0-0.5); % Lymphocytes 4.6 % (20.5-51.1); % Monocytes 3.8 % (1.7-9.3); % Neutrophils 86.4 % (42.2-75.2); Absolute Basophils 0.1 10^3/uL (0-0.2); Absolute Eosinophils 0.4 10^3/uL (0-0.7); Absolute Immature Granulocytes 2.5 10^3/uL (0-0.05); Absolute Lymphocytes 2.6 10^3/uL (1.2-3.4); Absolute Monocytes 2.2 10^3/uL (0.1-0.6); Absolute Neutrophils 49.2 10^3/uL (1.4-6.5); Hematocrit 34.8 % (37.0-47.0); Hemoglobin 11.2 g/dL (12.0-16.0); Mean Corp Hgb Conc. 32.2 g/dL (33.0-37.0); Mean Corpuscular Hgb 30.9 pg (27.0-31.0); Mean Corpuscular Volume 96.1 fL (81.0-99.0); Mean Platelet Volume 9.5 fL (7.4-10.4); Platelet Count 153 10^3/uL (130-400); Red Blood Cell Count 3.62 10^6/uL (4.20-5.40)
[2024-05-15 12:53] LABS: ALT (SGPT) 49 U/L (0-35); AST (SGOT) 45 U/L (14-36); Albumin 3.9 g/dl (3.5-5.0); Alkaline Phosphatase 316 U/L (38-126); Blood Urea Nitrogen 18 mg/dl (7-17); Calcium 8.9 mg/dl (8.4-10.2); Carbon Dioxide 30 mmol/L (22-30); Chloride 99 mmol/L (98-107); Glucose 108 mg/dl (70-99); Sodium 141 mmol/L (135-145); Total Bilirubin 0.3 mg/dl (0.2-1.3); Total Protein 6.6 g/dl (6.3-8.2); eGFR > 60.00
== END ==
LOC: OIDL 11:07
PROVIDERS: ATTENDING PHYSICIAN Internal Medicine Hematology & Oncology; FAMILY PHYSICIAN Family Medicine
DX: C25.1 Malignant neoplasm of body of pancreas (principal)
CPT/HCPCS: 36415; 80053; 85025

== ENCOUNTER → 2024-05-29 11:27 | Outpatient (REF) | payer MEDICARE, OTHER, SELFPAY ==
[2024-05-29 13:00] LABS: % Basophils 0.6 % (0-2); % Eosinophils 3.7 % (0-6); % Immature Granulocytes 0.5 % (0-0.5); % Lymphocytes 16.6 % (20.5-51.1); % Monocytes 11.8 % (1.7-9.3); % Neutrophils 66.8 % (42.2-75.2); Absolute Basophils 0.1 10^3/uL (0-0.2); Absolute Eosinophils 0.4 10^3/uL (0-0.7); Absolute Immature Granulocytes 0.1 10^3/uL (0-0.05); Absolute Lymphocytes 1.6 10^3/uL (1.2-3.4); Absolute Monocytes 1.1 10^3/uL (0.1-0.6); Absolute Neutrophils 6.5 10^3/uL (1.4-6.5); Hematocrit 31.3 % (37.0-47.0); Hemoglobin 10.4 g/dL (12.0-16.0); Mean Corp Hgb Conc. 33.2 g/dL (33.0-37.0); Mean Corpuscular Hgb 30.7 pg (27.0-31.0); Mean Corpuscular Volume 92.3 fL (81.0-99.0); Mean Platelet Volume 10.7 fL (7.4-10.4); Nucleated Red Blood Cells % 0 %; Platelet Count 218 10^3/uL (130-400); Red Blood Cell Count 3.39 10^6/uL (4.20-5.40); Red Cell Dist. Width 16.6 % (11.5-14.5); White Blood Cell Count 9.7 10^3/uL (4.8-10.8)
[2024-05-29 13:46] LABS: ALT (SGPT) 23 U/L (0-35); AST (SGOT) 24 U/L (14-36); Albumin 3.6 g/dl (3.5-5.0); Alkaline Phosphatase 185 U/L (38-126); Blood Urea Nitrogen 18 mg/dl (7-17); Calcium 8.7 mg/dl (8.4-10.2); Carbon Dioxide 27 mmol/L (22-30); Chloride 100 mmol/L (98-107); Glucose 85 mg/dl (70-99); Potassium 4.2 mmol/L (3.5-5.1); Sodium 140 mmol/L (135-145); Total Bilirubin 0.3 mg/dl (0.2-1.3); Total Protein 6.2 g/dl (6.3-8.2); eGFR > 60.00
== END ==
LOC: REG 11:27
PROVIDERS: ATTENDING PHYSICIAN Internal Medicine Hematology & Oncology; FAMILY PHYSICIAN Family Medicine
DX: C25.1 Malignant neoplasm of body of pancreas (principal)
CPT/HCPCS: 36415; 80053; 85025

== ENCOUNTER → 2024-06-12 10:54 | Outpatient (REF) | payer MEDICARE, OTHER, SELFPAY ==
[2024-06-12 11:14] LABS: % Basophils 0.2 % (0-2); % Immature Granulocytes 3.8 % (0-0.5); % Monocytes 3.5 % (1.7-9.3); % Neutrophils 85.5 % (42.2-75.2); Absolute Basophils 0.1 10^3/uL (0-0.2); Absolute Eosinophils 0.5 10^3/uL (0-0.7); Absolute Immature Granulocytes 1.7 10^3/uL (0-0.05); Absolute Lymphocytes 2.6 10^3/uL (1.2-3.4); Absolute Monocytes 1.5 10^3/uL (0.1-0.6); Absolute Neutrophils 37.3 10^3/uL (1.4-6.5); Hematocrit 33.4 % (37.0-47.0); Hemoglobin 10.9 g/dL (12.0-16.0); Mean Corp Hgb Conc. 32.6 g/dL (33.0-37.0); Mean Corpuscular Hgb 29.9 pg (27.0-31.0); Mean Corpuscular Volume 91.5 fL (81.0-99.0); Mean Platelet Volume 9.9 fL (7.4-10.4); Platelet Count 166 10^3/uL (130-400); Red Blood Cell Count 3.65 10^6/uL (4.20-5.40); Red Cell Dist. Width 17.8 % (11.5-14.5); White Blood Cell Count 43.7 10^3/uL (4.8-10.8)
[2024-06-12 14:54] LABS: ALT (SGPT) 31 U/L (0-35); AST (SGOT) 32 U/L (14-36); Albumin 3.8 g/dl (3.5-5.0); Alkaline Phosphatase 276 U/L (38-126); Blood Urea Nitrogen 20 mg/dl (7-17); Carbon Dioxide 30 mmol/L (22-30); Chloride 98 mmol/L (98-107); Glucose 110 mg/dl (70-99); Potassium 4.3 mmol/L (3.5-5.1); Sodium 136 mmol/L (135-145); Total Bilirubin 0.3 mg/dl (0.2-1.3); Total Protein 6.4 g/dl (6.3-8.2); eGFR > 60.00
== END ==
LOC: OIDL 10:54
PROVIDERS: ATTENDING PHYSICIAN Internal Medicine Hematology & Oncology; FAMILY PHYSICIAN Family Medicine
DX: C25.1 Malignant neoplasm of body of pancreas (principal)
CPT/HCPCS: 36415; 80053; 85025

== ENCOUNTER → 2024-06-26 10:55 | Outpatient (REF) | payer MEDICARE, OTHER, SELFPAY ==
[2024-06-26 11:28] LABS: % Basophils 0.4 % (0-2); % Eosinophils 3.7 % (0-6); % Immature Granulocytes 0.3 % (0-0.5); % Lymphocytes 15.5 % (20.5-51.1); % Monocytes 12.6 % (1.7-9.3); % Neutrophils 67.5 % (42.2-75.2); Absolute Eosinophils 0.4 10^3/uL (0-0.7); Absolute Lymphocytes 1.5 10^3/uL (1.2-3.4); Absolute Monocytes 1.2 10^3/uL (0.1-0.6); Absolute Neutrophils 6.3 10^3/uL (1.4-6.5); Hemoglobin 10.3 g/dL (12.0-16.0); Mean Corp Hgb Conc. 32.2 g/dL (33.0-37.0); Mean Corpuscular Hgb 28.8 pg (27.0-31.0); Mean Corpuscular Volume 89.4 fL (81.0-99.0); Mean Platelet Volume 10.1 fL (7.4-10.4); Platelet Count 205 10^3/uL (130-400); Red Blood Cell Count 3.58 10^6/uL (4.20-5.40); Red Cell Dist. Width 17.3 % (11.5-14.5); White Blood Cell Count 9.4 10^3/uL (4.8-10.8)
[2024-06-26 12:33] LABS: ALT (SGPT) 28 U/L (0-35); AST (SGOT) 26 U/L (14-36); Albumin 3.7 g/dl (3.5-5.0); Alkaline Phosphatase 184 U/L (38-126); Blood Urea Nitrogen 19 mg/dl (7-17); Calcium 8.9 mg/dl (8.4-10.2); Carbon Dioxide 28 mmol/L (22-30); Chloride 101 mmol/L (98-107); Glucose 90 mg/dl (70-99); Potassium 4.3 mmol/L (3.5-5.1); Sodium 137 mmol/L (135-145); Total Bilirubin 0.3 mg/dl (0.2-1.3); Total Protein 6.3 g/dl (6.3-8.2); eGFR > 60.00
[2024-06-29 03:19] LABS: CA 19-9 24 U/mL (<=35)
== END ==
LOC: OIDL 10:55
PROVIDERS: ATTENDING PHYSICIAN Internal Medicine Hematology & Oncology; FAMILY PHYSICIAN Family Medicine
DX: C25.1 Malignant neoplasm of body of pancreas (principal)
CPT/HCPCS: 36415; 80053; 85025; 86301

== ENCOUNTER → 2024-07-09 10:33 | Outpatient (REF) | payer MEDICARE, OTHER, SELFPAY | LOC: RAD 10:33 | PROVIDERS: ATTENDING PHYSICIAN Internal Medicine Hematology & Oncology; FAMILY PHYSICIAN Family Medicine | DX: C25.1 Malignant neoplasm of body of pancreas (principal) | CPT/HCPCS: 71260; 74177; Q9967 ==

== ENCOUNTER → 2024-07-10 10:57 | Outpatient (REF) | payer MEDICARE, OTHER, SELFPAY ==
[2024-07-10 11:21] LABS: % Basophils 0.3 % (0-2); % Eosinophils 0.9 % (0-6); % Immature Granulocytes 3.9 % (0-0.5); % Lymphocytes 5.4 % (20.5-51.1); % Monocytes 3.1 % (1.7-9.3); % Neutrophils 86.4 % (42.2-75.2); Absolute Basophils 0.1 10^3/uL (0-0.2); Absolute Eosinophils 0.4 10^3/uL (0-0.7); Absolute Immature Granulocytes 1.6 10^3/uL (0-0.05); Absolute Lymphocytes 2.2 10^3/uL (1.2-3.4); Absolute Monocytes 1.3 10^3/uL (0.1-0.6); Absolute Neutrophils 35.2 10^3/uL (1.4-6.5); Hematocrit 34.5 % (37.0-47.0); Mean Corp Hgb Conc. 31.9 g/dL (33.0-37.0); Mean Corpuscular Hgb 28.6 pg (27.0-31.0); Mean Corpuscular Volume 89.6 fL (81.0-99.0); Mean Platelet Volume 9.7 fL (7.4-10.4); Platelet Count 160 10^3/uL (130-400); Red Blood Cell Count 3.85 10^6/uL (4.20-5.40); Red Cell Dist. Width 18.6 % (11.5-14.5); White Blood Cell Count 40.7 10^3/uL (4.8-10.8)
[2024-07-10 12:48] LABS: ALT (SGPT) 45 U/L (0-35); AST (SGOT) 40 U/L (14-36); Albumin 3.8 g/dl (3.5-5.0); Alkaline Phosphatase 350 U/L (38-126); Blood Urea Nitrogen 16 mg/dl (7-17); Carbon Dioxide 27 mmol/L (22-30); Chloride 100 mmol/L (98-107); Glucose 156 mg/dl (70-99); Potassium 3.9 mmol/L (3.5-5.1); Sodium 138 mmol/L (135-145); Total Bilirubin 0.2 mg/dl (0.2-1.3); Total Protein 6.3 g/dl (6.3-8.2); eGFR > 60.00
== END ==
LOC: OIDL 10:57
PROVIDERS: ATTENDING PHYSICIAN Internal Medicine Hematology & Oncology; FAMILY PHYSICIAN Family Medicine
DX: C25.1 Malignant neoplasm of body of pancreas (principal)
CPT/HCPCS: 36415; 80053; 85025

== ENCOUNTER → 2024-07-29 15:19 | Outpatient (REF) | payer MEDICARE, OTHER, SELFPAY ==
[2024-07-29 13:04] LABS: ALT (SGPT) 50 U/L (0-35); AST (SGOT) 54 U/L (14-36); Albumin 3.6 g/dl (3.5-5.0); Alkaline Phosphatase 262 U/L (38-126); Blood Urea Nitrogen 24 mg/dl (7-17); Calcium 8.9 mg/dl (8.4-10.2); Carbon Dioxide 27 mmol/L (22-30); Chloride 102 mmol/L (98-107); Glucose 129 mg/dl (70-99); Potassium 4.8 mmol/L (3.5-5.1); Sodium 138 mmol/L (135-145); Total Bilirubin 0.2 mg/dl (0.2-1.3); Total Protein 6.1 g/dl (6.3-8.2); eGFR > 60.00
[2024-07-29 13:11] LABS: % Basophils 0.8 % (0-2); % Eosinophils 5.3 % (0-6); % Immature Granulocytes 0.4 % (0-0.5); % Lymphocytes 17.7 % (20.5-51.1); % Neutrophils 67.8 % (42.2-75.2); Absolute Basophils 0.1 10^3/uL (0-0.2); Absolute Eosinophils 0.5 10^3/uL (0-0.7); Absolute Lymphocytes 1.5 10^3/uL (1.2-3.4); Absolute Monocytes 0.7 10^3/uL (0.1-0.6); Absolute Neutrophils 5.8 10^3/uL (1.4-6.5); Hematocrit 33.5 % (37.0-47.0); Hemoglobin 10.4 g/dL (12.0-16.0); Mean Corpuscular Hgb 28.2 pg (27.0-31.0); Mean Corpuscular Volume 90.8 fL (81.0-99.0); Mean Platelet Volume 10.4 fL (7.4-10.4); Nucleated Red Blood Cells % 0 %; Platelet Count 447 10^3/uL (130-400); Red Blood Cell Count 3.69 10^6/uL (4.20-5.40); Red Cell Dist. Width 18.9 % (11.5-14.5); White Blood Cell Count 8.5 10^3/uL (4.8-10.8)
[2024-07-30 15:29] LABS: CA 19-9 31 U/mL (<=35)
== END ==
LOC: OIDL 15:19
PROVIDERS: ATTENDING PHYSICIAN Internal Medicine Hematology & Oncology
DX: C25.1 Malignant neoplasm of body of pancreas (principal)
CPT/HCPCS: 80053; 85025; 86301

== ENCOUNTER → 2024-08-13 10:32 | Outpatient (REF) | payer MEDICARE, OTHER, SELFPAY ==
[2024-08-13 10:54] LABS: % Basophils 1.3 % (0-2); % Eosinophils 6.2 % (0-6); % Immature Granulocytes 0.1 % (0-0.5); % Lymphocytes 21.4 % (20.5-51.1); % Monocytes 8.5 % (1.7-9.3); % Neutrophils 62.5 % (42.2-75.2); Absolute Basophils 0.1 10^3/uL (0-0.2); Absolute Eosinophils 0.5 10^3/uL (0-0.7); Absolute Lymphocytes 1.6 10^3/uL (1.2-3.4); Absolute Monocytes 0.7 10^3/uL (0.1-0.6); Absolute Neutrophils 4.8 10^3/uL (1.4-6.5); Hematocrit 34.1 % (37.0-47.0); Mean Corp Hgb Conc. 32.3 g/dL (33.0-37.0); Mean Corpuscular Hgb 28.1 pg (27.0-31.0); Mean Corpuscular Volume 87.2 fL (81.0-99.0); Mean Platelet Volume 9.5 fL (7.4-10.4); Platelet Count 191 10^3/uL (130-400); Red Blood Cell Count 3.91 10^6/uL (4.20-5.40); Red Cell Dist. Width 18.9 % (11.5-14.5); White Blood Cell Count 7.6 10^3/uL (4.8-10.8)
[2024-08-13 11:58] LABS: ALT (SGPT) 30 U/L (0-35); AST (SGOT) 36 U/L (14-36); Alkaline Phosphatase 242 U/L (38-126); Blood Urea Nitrogen 20 mg/dl (7-17); Carbon Dioxide 28 mmol/L (22-30); Chloride 99 mmol/L (98-107); Glucose 117 mg/dl (70-99); Potassium 4.5 mmol/L (3.5-5.1); Sodium 136 mmol/L (135-145); Total Bilirubin 0.4 mg/dl (0.2-1.3); Total Protein 6.6 g/dl (6.3-8.2); eGFR > 60.00
== END ==
LOC: OIDL 10:32
PROVIDERS: ATTENDING PHYSICIAN Internal Medicine Hematology & Oncology
DX: C25.1 Malignant neoplasm of body of pancreas (principal)
CPT/HCPCS: 36415; 80053; 85025

== ENCOUNTER → 2024-09-03 10:35 | Outpatient (REF) | payer MEDICARE, OTHER, SELFPAY ==
[2024-09-03 11:08] LABS: % Eosinophils 3.2 % (0-6); % Immature Granulocytes 0.2 % (0-0.5); % Lymphocytes 27.9 % (20.5-51.1); % Monocytes 12.7 % (1.7-9.3); Absolute Basophils 0.1 10^3/uL (0-0.2); Absolute Eosinophils 0.2 10^3/uL (0-0.7); Absolute Lymphocytes 1.5 10^3/uL (1.2-3.4); Absolute Monocytes 0.7 10^3/uL (0.1-0.6); Absolute Neutrophils 2.9 10^3/uL (1.4-6.5); Hematocrit 35.7 % (37.0-47.0); Hemoglobin 11.5 g/dL (12.0-16.0); Mean Corp Hgb Conc. 32.2 g/dL (33.0-37.0); Mean Corpuscular Hgb 27.9 pg (27.0-31.0); Mean Corpuscular Volume 86.7 fL (81.0-99.0); Platelet Count 251 10^3/uL (130-400); Red Blood Cell Count 4.12 10^6/uL (4.20-5.40); Red Cell Dist. Width 18.9 % (11.5-14.5); White Blood Cell Count 5.3 10^3/uL (4.8-10.8)
[2024-09-03 13:58] LABS: ALT (SGPT) 18 U/L (0-35); AST (SGOT) 26 U/L (14-36); Albumin 3.8 g/dl (3.5-5.0); Alkaline Phosphatase 117 U/L (38-126); Blood Urea Nitrogen 19 mg/dl (7-17); Calcium 8.7 mg/dl (8.4-10.2); Carbon Dioxide 29 mmol/L (22-30); Chloride 98 mmol/L (98-107); Glucose 89 mg/dl (70-99); Potassium 4.2 mmol/L (3.5-5.1); Sodium 135 mmol/L (135-145); Total Bilirubin 0.4 mg/dl (0.2-1.3); Total Protein 6.4 g/dl (6.3-8.2); eGFR > 60.00
== END ==
LOC: OIDL 10:35
PROVIDERS: ATTENDING PHYSICIAN Internal Medicine Hematology & Oncology; FAMILY PHYSICIAN Family Medicine
DX: C25.1 Malignant neoplasm of body of pancreas (principal)
CPT/HCPCS: 36415; 80053; 85025

== ENCOUNTER → 2024-09-17 10:34 | Outpatient (REF) | payer MEDICARE, OTHER, SELFPAY ==
[2024-09-17 10:51] LABS: % Basophils 0.7 % (0-2); % Eosinophils 3.3 % (0-6); % Immature Granulocytes 0.2 % (0-0.5); % Lymphocytes 25.1 % (20.5-51.1); % Monocytes 7.6 % (1.7-9.3); % Neutrophils 63.1 % (42.2-75.2); Absolute Eosinophils 0.2 10^3/uL (0-0.7); Absolute Lymphocytes 1.5 10^3/uL (1.2-3.4); Absolute Monocytes 0.5 10^3/uL (0.1-0.6); Absolute Neutrophils 3.8 10^3/uL (1.4-6.5); Hematocrit 36.2 % (37.0-47.0); Hemoglobin 11.7 g/dL (12.0-16.0); Mean Corp Hgb Conc. 32.3 g/dL (33.0-37.0); Mean Corpuscular Volume 86.6 fL (81.0-99.0); Mean Platelet Volume 9.1 fL (7.4-10.4); Platelet Count 133 10^3/uL (130-400); Red Blood Cell Count 4.18 10^6/uL (4.20-5.40); Red Cell Dist. Width 19.5 % (11.5-14.5); White Blood Cell Count 6.1 10^3/uL (4.8-10.8)
[2024-09-17 11:44] LABS: ALT (SGPT) 22 U/L (0-35); AST (SGOT) 26 U/L (14-36); Albumin 3.9 g/dl (3.5-5.0); Alkaline Phosphatase 112 U/L (38-126); Blood Urea Nitrogen 18 mg/dl (7-17); Calcium 8.9 mg/dl (8.4-10.2); Carbon Dioxide 26 mmol/L (22-30); Chloride 100 mmol/L (98-107); Glucose 113 mg/dl (70-99); Potassium 4.2 mmol/L (3.5-5.1); Sodium 135 mmol/L (135-145); Total Bilirubin 0.3 mg/dl (0.2-1.3); Total Protein 6.6 g/dl (6.3-8.2); eGFR > 60.00
== END ==
LOC: OIDL 10:34
PROVIDERS: ATTENDING PHYSICIAN Internal Medicine Hematology & Oncology
DX: C25.1 Malignant neoplasm of body of pancreas (principal)
CPT/HCPCS: 36415; 80053; 85025

== ENCOUNTER → 2024-10-01 10:53 | Outpatient (REF) | payer MEDICARE, OTHER, SELFPAY ==
[2024-10-01 11:30] LABS: % Basophils 1.3 % (0-2); % Eosinophils 2.3 % (0-6); % Lymphocytes 26.6 % (20.5-51.1); % Monocytes 12.5 % (1.7-9.3); % Neutrophils 57.3 % (42.2-75.2); Absolute Basophils 0.1 10^3/uL (0-0.2); Absolute Eosinophils 0.1 10^3/uL (0-0.7); Absolute Lymphocytes 1.6 10^3/uL (1.2-3.4); Absolute Monocytes 0.8 10^3/uL (0.1-0.6); Absolute Neutrophils 3.5 10^3/uL (1.4-6.5); Hematocrit 35.5 % (37.0-47.0); Hemoglobin 11.7 g/dL (12.0-16.0); Mean Corpuscular Hgb 28.7 pg (27.0-31.0); Platelet Count 153 10^3/uL (130-400); Red Blood Cell Count 4.08 10^6/uL (4.20-5.40); Red Cell Dist. Width 20.6 % (11.5-14.5); White Blood Cell Count 6.2 10^3/uL (4.8-10.8)
[2024-10-01 12:19] LABS: ALT (SGPT) 19 U/L (0-35); AST (SGOT) 25 U/L (14-36); Albumin 4.2 g/dl (3.5-5.0); Alkaline Phosphatase 108 U/L (38-126); Blood Urea Nitrogen 20 mg/dl (7-17); Calcium 9.4 mg/dl (8.4-10.2); Carbon Dioxide 26 mmol/L (22-30); Chloride 101 mmol/L (98-107); Glucose 109 mg/dl (70-99); Potassium 4.3 mmol/L (3.5-5.1); Sodium 136 mmol/L (135-145); Total Bilirubin 0.6 mg/dl (0.2-1.3); Total Protein 6.6 g/dl (6.3-8.2); eGFR > 60.00
== END ==
LOC: OIDL 10:53
PROVIDERS: ATTENDING PHYSICIAN Internal Medicine Hematology & Oncology
DX: C25.1 Malignant neoplasm of body of pancreas (principal)
CPT/HCPCS: 36415; 80053; 85025

== ENCOUNTER → 2024-10-08 10:11 | Outpatient (REF) | payer MEDICARE, OTHER, SELFPAY ==
--- NOTE | 2024-10-08 13:27 | W.PN.UPDATE ---
Update Note
Progress Note Update
Seen in IR for port site check. Completed course of cephalexin. Small amount of erythema limited to reservoir, mildly tender per patient. No erythema surrounding reservoir or along catheter tubing. No induration. No drainage.
Advised to continue use of port, no further rx at this time, contact IR if any increase of erythema or pain without palpation.
== END ==
LOC: RADI 10:11
PROVIDERS: ATTENDING PHYSICIAN Internal Medicine Hematology & Oncology; FAMILY PHYSICIAN Family Medicine
DX: T82.898A Other specified complication of vascular prosthetic devices, implants and grafts, initial encounter (principal); Y82.8 Other medical devices associated with adverse incidents

== ENCOUNTER → 2024-10-15 11:17 | Outpatient (REF) | payer MEDICARE, OTHER, SELFPAY ==
[2024-10-15 11:26] LABS: % Basophils 0.8 % (0-2); % Eosinophils 3.7 % (0-6); % Immature Granulocytes 0.1 % (0-0.5); % Lymphocytes 24.7 % (20.5-51.1); % Neutrophils 60.7 % (42.2-75.2); Absolute Basophils 0.1 10^3/uL (0-0.2); Absolute Eosinophils 0.3 10^3/uL (0-0.7); Absolute Lymphocytes 2.1 10^3/uL (1.2-3.4); Absolute Monocytes 0.9 10^3/uL (0.1-0.6); Absolute Neutrophils 5.2 10^3/uL (1.4-6.5); Hematocrit 39.3 % (37.0-47.0); Hemoglobin 12.8 g/dL (12.0-16.0); Mean Corp Hgb Conc. 32.6 g/dL (33.0-37.0); Mean Corpuscular Hgb 28.6 pg (27.0-31.0); Mean Corpuscular Volume 87.9 fL (81.0-99.0); Mean Platelet Volume 9.2 fL (7.4-10.4); Platelet Count 198 10^3/uL (130-400); Red Blood Cell Count 4.47 10^6/uL (4.20-5.40); Red Cell Dist. Width 21.2 % (11.5-14.5); White Blood Cell Count 8.6 10^3/uL (4.8-10.8)
[2024-10-15 12:30] LABS: ALT (SGPT) 21 U/L (0-35); AST (SGOT) 25 U/L (14-36); Alkaline Phosphatase 103 U/L (38-126); Blood Urea Nitrogen 21 mg/dl (7-17); Calcium 9.4 mg/dl (8.4-10.2); Carbon Dioxide 27 mmol/L (22-30); Chloride 101 mmol/L (98-107); Glucose 95 mg/dl (70-99); Potassium 4.7 mmol/L (3.5-5.1); Sodium 136 mmol/L (135-145); Total Bilirubin 0.4 mg/dl (0.2-1.3); Total Protein 6.9 g/dl (6.3-8.2); eGFR > 60.00
[2024-10-16 15:19] LABS: CA 19-9 35 U/mL (<=35)
== END ==
LOC: OIDL 11:17
PROVIDERS: ATTENDING PHYSICIAN Internal Medicine Hematology & Oncology
DX: C25.1 Malignant neoplasm of body of pancreas (principal)
CPT/HCPCS: 36415; 80053; 85025; 86301

== ENCOUNTER → 2024-10-29 10:50 | Outpatient (REF) | payer MEDICARE, OTHER, SELFPAY ==
[2024-10-29 11:14] LABS: % Basophils 0.8 % (0-2); % Eosinophils 5.3 % (0-6); % Lymphocytes 29.6 % (20.5-51.1); % Monocytes 9.4 % (1.7-9.3); % Neutrophils 54.9 % (42.2-75.2); Absolute Basophils 0.1 10^3/uL (0-0.2); Absolute Eosinophils 0.3 10^3/uL (0-0.7); Absolute Lymphocytes 1.9 10^3/uL (1.2-3.4); Absolute Monocytes 0.6 10^3/uL (0.1-0.6); Absolute Neutrophils 3.5 10^3/uL (1.4-6.5); Hematocrit 35.8 % (37.0-47.0); Hemoglobin 11.7 g/dL (12.0-16.0); Mean Corp Hgb Conc. 32.7 g/dL (33.0-37.0); Mean Corpuscular Hgb 28.8 pg (27.0-31.0); Mean Corpuscular Volume 88.2 fL (81.0-99.0); Mean Platelet Volume 9.6 fL (7.4-10.4); Platelet Count 154 10^3/uL (130-400); Red Blood Cell Count 4.06 10^6/uL (4.20-5.40); White Blood Cell Count 6.4 10^3/uL (4.8-10.8)
[2024-10-29 12:03] LABS: ALT (SGPT) 19 U/L (0-35); AST (SGOT) 24 U/L (14-36); Albumin 3.7 g/dl (3.5-5.0); Alkaline Phosphatase 94 U/L (38-126); Blood Urea Nitrogen 21 mg/dl (7-17); Calcium 9.4 mg/dl (8.4-10.2); Carbon Dioxide 27 mmol/L (22-30); Chloride 102 mmol/L (98-107); Glucose 130 mg/dl (70-99); Potassium 4.3 mmol/L (3.5-5.1); Sodium 136 mmol/L (135-145); Total Bilirubin 0.4 mg/dl (0.2-1.3); Total Protein 6.4 g/dl (6.3-8.2); eGFR > 60.00
== END ==
LOC: OIDL 10:50
PROVIDERS: ATTENDING PHYSICIAN Internal Medicine Hematology & Oncology; FAMILY PHYSICIAN Family Medicine
DX: C25.1 Malignant neoplasm of body of pancreas (principal)
CPT/HCPCS: 36415; 80053; 85025

== ENCOUNTER → 2024-11-06 11:23 | Outpatient (REF) | payer MEDICARE, OTHER, SELFPAY | LOC: RAD 11:23 | PROVIDERS: ATTENDING PHYSICIAN Internal Medicine Hematology & Oncology; FAMILY PHYSICIAN Family Medicine | DX: C25.1 Malignant neoplasm of body of pancreas (principal) | CPT/HCPCS: 71260; 74177; Q9967 ==

== ENCOUNTER → 2024-11-21 06:55 | Outpatient (REF) | payer MEDICARE, OTHER, SELFPAY ==
[2024-11-21 07:30] VITALS: BP 139/73; BP_SYST 86
[2024-11-21 07:47] LABS: INR 0.97; PT 13.4 Sec (11.4-14.6)
[2024-11-21 09:10] VITALS: BP 139/70; BP_SYST 89
[2024-11-21 10:07] VITALS: BP 142/78; BP_SYST 78
[2024-11-21 10:28] VITALS: BP 142/78
== END ==
LOC: RADI 06:55
PROVIDERS: ATTENDING PHYSICIAN Internal Medicine Hematology & Oncology; FAMILY PHYSICIAN Family Medicine; OTHER PHYSICIAN Physician Assistant
DX: C78.6 Secondary malignant neoplasm of retroperitoneum and peritoneum (principal); T82.514A Breakdown (mechanical) of infusion catheter, initial encounter; Y82.8 Other medical devices associated with adverse incidents; R19.09 Other intra-abdominal and pelvic swelling, mass and lump; C25.1 Malignant neoplasm of body of pancreas
CPT/HCPCS: 88305; 36415; 36590; 49180; 77001; 77012; 85610; 88333; 88334; 88341; 88342; 99152; 99153

== ENCOUNTER → 2025-01-15 15:27 | Outpatient (REF) | payer MEDICARE, OTHER, SELFPAY ==
[2025-01-15 16:05] LABS: % Basophils 0.4 % (0-2); % Eosinophils 5.1 % (0-6); % Immature Granulocytes 0.3 % (0-0.5); % Monocytes 10.4 % (1.7-9.3); % Neutrophils 64.8 % (42.2-75.2); Absolute Eosinophils 0.4 10^3/uL (0-0.7); Absolute Lymphocytes 1.5 10^3/uL (1.2-3.4); Absolute Monocytes 0.8 10^3/uL (0.1-0.6); Hematocrit 37.2 % (37.0-47.0); Hemoglobin 12.4 g/dL (12.0-16.0); Mean Corp Hgb Conc. 33.3 g/dL (33.0-37.0); Mean Corpuscular Hgb 31.5 pg (27.0-31.0); Mean Corpuscular Volume 94.4 fL (81.0-99.0); Mean Platelet Volume 9.7 fL (7.4-10.4); Nucleated Red Blood Cells % 0 %; Platelet Count 164 10^3/uL (130-400); Red Blood Cell Count 3.94 10^6/uL (4.20-5.40); Red Cell Dist. Width 16.4 % (11.5-14.5); White Blood Cell Count 7.8 10^3/uL (4.8-10.8)
[2025-01-15 16:16] LABS: ALT (SGPT) 19 U/L (0-35); AST (SGOT) 24 U/L (14-36); Albumin 4.2 g/dl (3.5-5.0); Alkaline Phosphatase 90 U/L (38-126); Blood Urea Nitrogen 21 mg/dl (7-17); Calcium 9.6 mg/dl (8.4-10.2); Carbon Dioxide 28 mmol/L (22-30); Chloride 105 mmol/L (98-107); Glucose 89 mg/dl (70-99); Potassium 4.4 mmol/L (3.5-5.1); Sodium 137 mmol/L (135-145); Total Bilirubin 0.6 mg/dl (0.2-1.3); eGFR > 60.00
== END ==
LOC: REG 15:27
PROVIDERS: ATTENDING PHYSICIAN Internal Medicine Hematology & Oncology; FAMILY PHYSICIAN Family Medicine
DX: C25.1 Malignant neoplasm of body of pancreas (principal); N39.0 Urinary tract infection, site not specified
CPT/HCPCS: 36415; 80053; 85025; 87086

== ENCOUNTER 2025-01-19 11:21 | Emergency (ER) | payer MEDICARE, OTHER, SELFPAY ==
[2025-01-19 11:26] VITALS: BP 131/68
[2025-01-19 11:46] VITALS: BMI 22.5
--- NOTE | 2025-01-19 12:04 | ED.MUSCINJ ---
HPI-Injury
General
Chief Complaint: Musculo-Skeletal Complaint
Source: patient
Exam Limitations: none
Time Seen by Provider: 01/19/25 12:04
Nursing documentation reviewed up to this point in time: agreed with
History of Present Illness-Injury
Initial Injury comments:
79-year-old female with history of COPD, HTN, HLD, currently with pelvic and pancreatic cancer followed by Dr. Dobson, she went through chemotherapy and had her last radiation treatment last week and states 'there is no more they can do for me.' Is
here for persistent left shoulder pain over the past 4 days. No recollection of overuse or injury. She had a similar issue same shoulder 20 or so years ago and had to have it injected by Dr. Beal
Past History
Past History
ED Past Medical History: COPD and Hypercholesterolemia; Negative HTN or NIDDM
ED Past Surgical History: Other (Hemorrhoidectomy)
Social History
Tobacco: Smoker
Alcohol: None
Personal:
Living: with family
Review of Systems
Review of Systems
Allergies reviewed?: Yes
All Other Systems: ROS reviewed and negative except as documented in HPI and ROS
Musculoskeletal: Reports other (Left shoulder pain)
Skin: Reports no symptoms
Neurological: Denies weakness or numbness
Phy Exam
Physical Exam
Physical Exam:
GENERAL: No acute distress. A&Ox3.
CONSTITUTIONAL: Afebrile.
RESPIRATORY: Regular respirations, nonlabored, lungs clear.
CARDIOVASCULAR: Regular rate and rhythm, no murmurs, no rubs.
GI: Soft, nontender, normal BS
MUSCULOSKELETAL: Moves with ease. Well perfused.
SKIN: Warm, dry, pink
PSYCH: Normal mood and affect. Well kept, interactive and appropriate
NEUROLOGIC: Awake, alert and oriented. No focal neurological deficits
Injury Course
Orders/Labs/Results
Orders:
Orders
01/19/25 11:25
EKG [Electrocardiogram (*1)] Urgent
Reason for Study: Chest Pain
01/19/25 11:26
EKG- Treatment ONCE
01/19/25 11:35
Shoulder, Left 2 View CR [CR Shoulder - Left Min 2 View*] Urgent
Comment:
Reason For Exam: pain
01/19/25 12:31
Dexamethasone [Decadron] 10 mg PO NOW STA
MDM/Problems Addressed
Differential Diagnosis Includes:
Bursitis, calcific tendinitis
MDM/Problems Addressed:
79-year-old female with history of COPD, HTN, HLD, currently with pelvic and pancreatic cancer followed by Dr. Dobson, she went through chemotherapy and had her last radiation treatment last week and states 'there is no more they can do for me.' is
here for persistent left shoulder pain over the past 4 days. No recollection of overuse or injury. She had a similar issue same shoulder 20 or so years ago and had to have it injected by Dr. Beal
X-ray of the left shoulder initially read by this examiner, calcifications noted over the soft tissue of the humeral head
Plan: Medrol Dosepak, tramadol as needed for worse pain, follow-up with her orthopedic Dr. Beal after the holiday weekend
*EKG
EKG Intrepretation Date: 01/19/25
Interpretation: normal
Heart Rate: 99
Rate: normal
Rhythm: sinus
[place]: normal axis
Interval: normal interval
QRS Pattern: normal QRS
Ischemia: non-specific ST changes
*Critical Care Note
Total Time (30-74mins, 75-104mins- exclusive of procedures): Not Applicable
ED Attending Note
-
Portions of this chart may have been created with voice recognition software.� Occasional wrong word or��sound alike� substitutions may have occurred due to the inherent limitations of voice recognition software.
Discharge Plan
Departure
Patient Disposition: Home (Routine Discharge)
Date of Disposition: 01/19/25
Time of Disposition: 12:31
Patient with high blood pressure during this ER visit?: No
Condition: Good
Discharge Problem:
Calcific tendinitis of left shoulder
Instructions: Tendinopathy (DC)
Prescriptions:
New
methylprednisolone [Medrol (Juan)] 4 mg tablets,dose pack
See Rx Instructions .ROUTE .COMPLEX Qty: 21 0RF
Rx Instructions:
orally per package directions
tramadol 50 mg tablet
50 mg PO BID PRN (Reason: Pain) Qty: 10 0RF
No Action
levothyroxine 112 MCG tablet
112 mcg PO DAILY@1399
atorvastatin 40 mg Tablet
40 mg PO DAILY@1999
losartan 25 mg Tablet
25 mg PO DAILY
acywmzxryuok-fxtywzur-rwjaph Tablet
1 tab PO DAILY
Stiolto Respimat 2.5-2.5 mcg/actuation Mist
1 puff INHALATION R DAILY@1999
prochlorperazine maleate 10 mg Tablet
10 mg PO Q8H PRN (Reason: nausea)
ondansetron 8 mg Tablet,Disintegrating
8 mg PO Q8H PRN (Reason: nausea)
lidocaine-prilocaine 2.5-2.5 % Cream
1 applic TOPICAL ONCE
omeprazole 20 mg Capsule,Delayed Release(Dr/Ec)
20 mg PO DAILY
aspirin 81 mg Tablet,Chewable
81 mg PO DAILY
albuterol sulfate 90 mcg/actuation Hfa Aerosol Inhaler
1 puff INHALATION QID PRN (Reason: sob)
Referrals:
Wolf Beal MD [Active] - Call in 1-3 days for appt
Activity Restrictions/Additional Instructions:
As we discussed, Tylenol or ibuprofen as needed for mild to moderate pain and use the tramadol if needed for worse pain.
Call your orthopedic Dr. Zelaya's office on Monday and make next available appointment.
I sent a prescription to your pharmacy for the tramadol pain medicine and for a Medrol Dosepak which is a steroid. Started tomorrow as you were given a dose of steroid here today.
Interventions
Interventions:
*Risk Screen - Suicide Last Done: 01/19/25 11:26
*General Assessment Last Done: 01/19/25 11:46
*Neglect/Abuse Screening Last Done: 01/19/25 11:26
*ED- Fall Risk Assessment Last Done: 01/19/25 11:46
*ED COVID-19 Vaccine History Last Done: 01/19/25 11:46
*Nursing Disposition Last Done: 01/19/25 12:44
ED-Musculoskeletal Assessment Last Done: 01/19/25 11:48
Discharge Date and Time
Discharge Date/Time: 01/19/25 12:45
Print Language: PARAGUAYAN
[2025-01-19] MEDS: DECADRON 10 MG PO (12:36)
== END 2025-01-19 12:45 | disposition home or self-care (01) ==
LOC: EMR 11:21
PROVIDERS: EMERGENCY PHYSICIAN Emergency Medicine; FAMILY PHYSICIAN Family Medicine
DX: M75.32 Calcific tendinitis of left shoulder (principal); J44.9 Chronic obstructive pulmonary disease, unspecified; E78.00 Pure hypercholesterolemia, unspecified; I10 Essential (primary) hypertension; F17.200 Nicotine dependence, unspecified, uncomplicated; C25.9 Malignant neoplasm of pancreas, unspecified; Z92.3 Personal history of irradiation
CPT/HCPCS: 99284; 73030; 93005

== ENCOUNTER → 2025-03-31 10:46 | Outpatient (REF) | payer MEDICARE, OTHER, SELFPAY | LOC: RAD 10:46 | PROVIDERS: ATTENDING PHYSICIAN Radiology Radiation Oncology; FAMILY PHYSICIAN Family Medicine | DX: C79.89 Secondary malignant neoplasm of other specified sites (principal) | CPT/HCPCS: 74177; Q9967 ==

== ENCOUNTER → 2025-04-29 15:27 | Outpatient (REF) | payer MEDICARE, OTHER, SELFPAY ==
[2025-04-29 14:13] LABS: Hematocrit 41.4 % (37.0-47.0); Hemoglobin 14.1 g/dL (12.0-16.0); Mean Corp Hgb Conc. 34.1 g/dL (33.0-37.0); Mean Corpuscular Volume 90.4 fL (81.0-99.0); Platelet Count 241 10^3/uL (130-400); Red Cell Dist. Width 14.1 % (11.5-14.5)
[2025-04-29 14:48] LABS: ALT (SGPT) 18 U/L (0-35); AST (SGOT) 24 U/L (14-36); Albumin 4.6 g/dl (3.5-5.0); Alkaline Phosphatase 97 U/L (38-126); Blood Urea Nitrogen 72 mg/dl (7-17); Calcium 8.9 mg/dl (8.4-10.2); Chloride 80 mmol/L (98-107); Glucose 127 mg/dl (70-99); Potassium 3.7 mmol/L (3.5-5.1); Sodium 131 mmol/L (135-145); Total Protein 7.5 g/dl (6.3-8.2); eGFR 16.87
[2025-04-29 14:58] LABS: Carbon Dioxide 41 mmol/L (22-30)
== END ==
LOC: OIDL 15:27
PROVIDERS: ATTENDING PHYSICIAN Nurse Practitioner Adult Health
DX: C25.1 Malignant neoplasm of body of pancreas (principal)
CPT/HCPCS: 80053; 85025

== ENCOUNTER 2025-05-02 17:49 | Inpatient (IN) | payer MEDICARE, OTHER, SELFPAY ==
[2025-05-02] VITALS (7 sets, daily range): BP systolic 105–157; BP diastolic 63–86; BMI 21.2; BMI 21.3
--- NOTE | 2025-05-02 14:48 | ED.GENMED ---
History of Present Illness
General
Chief Complaint: Dehydration Symptoms
Source: patient and records
Exam Limitations: none
Time Seen by Provider: 05/02/25 14:32
History of Present Illness
History of Present Illness:
79yoF with a history of metastatic pancreatic cancer, hypertension, hyperlipidemia, and COPD presenting with her [id number] for evaluation of vomiting. Patient has been unable to tolerate p.o. intake for the past 1 to 2 weeks. She states she
tries to eat but vomits shortly afterwards. Her oncologist is Dr. Dobson. She was receiving chemotherapy/radiation up until a few months ago but was told that there were no more treatment options available. Patient states that she is 'on her way
out.' She was at the oncology office the past few days and was receiving IV fluids. She resumed vomiting shortly after leaving the office and was sent to the ED for evaluation. Patient had a CT abdomen on 03/31/25 which showed large 12.2 malignant
cystic mass on the R side of the pelvis as well as large 5.9cm malignant pancreatic adenocarcinoma.
Past History
Past History
ED Past Medical History: COPD and Hypercholesterolemia; Negative HTN or NIDDM
ED Past Surgical History: Other (Hemorrhoidectomy)
Social History
Tobacco: Smoker
Alcohol: None
Personal:
Living: with family
Phy Exam
Physical Exam
Physical Exam:
Chronically ill-appearing, nontoxic
General Physical Exam
General Presentation: no apparent distress
General Skin: warm and dry
General Habitus: elderly, failure to thrive and frail
General Mental: alert
ENT Exam
ENT Exam: normocephalic
Cardiovascular Exam
Cardiovascular Exam: regular rate/rhythm
Pulmonary Exam
Pulmonary Exam: no respiratory distress and decreased breath sounds
Gastrointestinal Exam
Gastrointestinal Exam: soft, non distended and other (+Tenderness in RLQ. No rebound or guarding.)
Neurological Exam
Neurological Exam: alert
Edil Coma Scale
Eye Opening: Spontaneous
Verbal Response: Oriented
Motor Response: Obeys Commands
GCS Total Score: 15
Skin Exam
Skin Exam: normal color and warm/dry
Psychiatric Exam
Psychiatric Exam: normal mood/affect
Course
Orders/Labs/Results
Orders:
Orders
05/02/25 14:44
Electrocardiogram (*1) Urgent
Reason for Study: Abdominal Pain
EKG- Treatment ONCE
0.9% Sodium Chloride 1000 ml [Nss] 1,000 ml IV BOLUS
Iohexol [Omnipaque] See Protocol PO NOW STA
Ondansetron Injectable [Zofran] 4 mg IV NOW STA
05/02/25 Dinner
Regular
At Your Request: Full Participation
05/02/25 15:06
Complete Blood Count/With Diff Urgent
Comprehensive Metabolic Panel Urgent
Lipase Urgent
Magnesium Urgent
05/02/25 15:54
0.9% Sodium Chloride 1000 ml [Nss] 1,000 ml IV BOLUS
Potassium Chloride [KCl] 40 meq PO NOW STA
05/02/25 16:51
Admit/Transfer Patient As Directed
Co-Sign Provider:
Level of Care: Inpatient admission
Assign to:: Medical/Surgical
Physician / Group: torrie
Diagnosis: jodi, vomiting
Reason for Hospitalization: jodi, vomiting
Expected length of stay greater than two midnights?: Yes
ELOS- Estimated Length of Stay in days: 2
I certify the patient meets the requirements for IP care: Yes
PRN Pain Medication Management As Directed
May give lesser potent ordered pain med per pt: Yes
preference::
Protocol:: Medication orders for pain may be administered in a
manner that supports deferring to patient preference
when the pt is:
- Requesting an ordered lesser potent pain medication.
Least to most potent pain medications are defined
as: acetaminophen < NSAID < tramadol < opioids
(morphine, oxycodone, hydromorphone).
- Requesting a lesser dose of the same medication IF
ORDERED.
- Requesting a less intrusive route of administration
if both routes are prescribed by the provider (PO <
IV).
05/02/25 16:52
Code Status As Directed
Resuscitation Status: Do not resuscitate
Reached after discussion with pt or family/Healthcare POA: Yes
DNR Bracelet Application ONCE
05/02/25 17:59
Ondansetron Injectable [Zofran] 4 mg IV Q6HPRN PRN
05/02/25 18:31
0.9% Sodium Chloride 1000 ml [Nss] 1,000 ml IV 100 mls/hr
Albuterol [ProAIR HFA INHALER] 1 puff INH R QIDPRN PRN sob
Prochlorperazine [Compazine] 10 mg IV Q6HPRN PRN
05/02/25 18:31
Activity As Directed
Activity Level: As Tolerated
Vital Signs As Directed
Frequency: Per unit guidelines
DX Deep Vein Thrombosis Video Routine
05/02/25 20:00
Heparin 5,000 units SC Q12
05/02/25 22:00
Gabapentin [Neurontin] 300 mg PO HS
05/03/25 06:00
Complete Blood Count/With Diff IN AM
Comprehensive Metabolic Panel IN AM
Levothyroxine [Synthroid] 112 mcg PO DAILY@0600
05/03/25 08:00
Aspirin Chewable [Low Strength Aspirin] 81 mg PO DAILY
Pantoprazole [Protonix] 40 mg PO DAILY
Abnormal Lab Results
05/02/25
15:06
WBC 12.7 H 10^3/uL
(4.8-10.8)
Absolute Neuts (auto) 9.9 H 10^3/uL
(1.4-6.5)
Absolute Monos (auto) 1.1 H 10^3/uL
(0.1-0.6)
Neutrophils % 77.9 H %
(42.2-75.2)
Lymphocytes % 12.1 L %
(20.5-51.1)
Sodium 131 L mmol/L
(135-145)
Potassium 3.3 L mmol/L
(3.5-5.1)
Chloride 79 L mmol/L
(98-107)
Carbon Dioxide 41 H mmol/L
(22-30)
BUN 81 H mg/dl
(7-17)
Creatinine 2.7 H mg/dL
(0.6-1.0)
Glucose 116 H mg/dl
(70-99)
Magnesium 2.6 H mg/dl
(1.6-2.3)
Total Bilirubin 1.4 H mg/dl
(0.2-1.3)
05/02/25 15:06
05/02/25 15:06
Vital Signs
Initial and Last Documented VS:
Initial Vital Signs
Temp Pulse Resp BP Pulse Ox
98.5 F 85 16 129/85 98
05/02/25 14:08 05/02/25 14:08 05/02/25 14:08 05/02/25 14:08 05/02/25 14:08
Last Documented Vital Signs
Temp Pulse Resp BP Pulse Ox
98.0 F 72 16 128/64 98
05/02/25 18:52 05/02/25 18:52 05/02/25 18:52 05/02/25 18:52 05/02/25 18:52
MDM/Problems Addressed
Differential Diagnosis Includes:
79yoF here with intractable n/v. Hx of metastatic pancreatic cancer that she was told was terminal. Received IV fluids as an outpatient the past 2 days. VSS. She is frail and chronically ill-appearing. There is right lower quadrant tenderness on
exam although she denied any abdominal pain prior to this. Recent CT showed a large right pelvic mass which is the likely culprit of her discomfort. Differential diagnosis includes but is not limited to: Failure to thrive, symptoms related to
progressive malignancy, dehydration
Initial ED plan: Check abdominal labs and EKG. Will defer imaging as it is unlikely to chart changer at this point. IV Zofran and fluid bolus for symptoms.
*Pulse Oximetry
SaO2: 98
Oxygen Mode of Delivery: Room air
Patient hypoxic: no (98%)
*EKG
Interpreted by ED Provider?: Yes
EKG Intrepretation Date: 05/02/25
Heart Rate: 75
Rate: normal
Rhythm: sinus
Summit: normal axis
Interval: long QT (529)
QRS Pattern: normal QRS
Ischemia: non-specific ST changes
*Critical Care Note
Total Time (30-74mins, 75-104mins- exclusive of procedures): Not Applicable
Update Note
Update Note:
Labs show an JODI with a creatinine of 2.7, baseline appears to be around 0.8. Sodium 131, chloride 79, potassium 3.3. Suspect all lab abnormalities are related to dehydration. EKG does show prolonged QTc of 529. She did receive a dose of Zofran
prior to this EKG. Additional fluid bolus ordered and patient admitted for further management.
ED Attending Note
-
Portions of this chart may have been created with voice recognition software.� Occasional wrong word or��sound alike� substitutions may have occurred due to the inherent limitations of voice recognition software.
Discharge Plan
Departure
Patient Disposition: Admit
Date of Disposition: 05/02/25
Time of Disposition: 15:57
Presentation/result/management discussed w/ accepting MD/DO: Hospitalist
Discharge Problem:
Intractable nausea and vomiting, Acute kidney injury
Interventions
Interventions:
*Risk Screen - Suicide Last Done: 05/02/25 14:08
*General Assessment Last Done: 05/02/25 15:34
*Neglect/Abuse Screening Last Done: 05/02/25 14:08
*ED- Fall Risk Assessment Last Done: 05/02/25 15:34
*ED COVID-19 Vaccine History Last Done: 05/02/25 15:34
*Nursing Disposition Last Done: 05/02/25 18:48
ED- Cardiac Assessment Last Done: 05/02/25 15:34
ED- Neurological Assessment Last Done: 05/02/25 15:34
ED- Pulmonary Assessment Last Done: 05/02/25 15:34
Discharge Date and Time
Discharge Date/Time: 05/02/25 18:49
[2025-05-02] MEDS: ZOFRAN 4 MG IV ×2 (15:13→18:06)
[2025-05-02 15:14] LABS: Hematocrit 39.6 % (37.0-47.0); Hemoglobin 13.6 g/dL (12.0-16.0); Mean Corp Hgb Conc. 34.3 g/dL (33.0-37.0); Mean Corpuscular Volume 89.0 fL (81.0-99.0); Nucleated Red Blood Cells % 0 %; Platelet Count 222 10^3/uL (130-400); Red Cell Dist. Width 14.2 % (11.5-14.5)
[2025-05-02] MEDS: NSS 1000 IV ×3 (15:15→20:27)
[2025-05-02 15:44] LABS: ALT (SGPT) 18 U/L (0-35); AST (SGOT) 31 U/L (14-36); Albumin 4.4 g/dl (3.5-5.0); Alkaline Phosphatase 90 U/L (38-126); Blood Urea Nitrogen 81 mg/dl (7-17); Calcium 9.1 mg/dl (8.4-10.2); Chloride 79 mmol/L (98-107); Estimated Creatinine Clearance 15 ml/min; Glucose 116 mg/dl (70-99); Lipase 71 U/L (23-300); Magnesium 2.6 mg/dl (1.6-2.3); Potassium 3.3 mmol/L (3.5-5.1); Sodium 131 mmol/L (135-145); Total Protein 7.6 g/dl (6.3-8.2); eGFR 17.62
[2025-05-02 16:06] LABS: Carbon Dioxide 41 mmol/L (22-30)
[2025-05-02] MEDS: KCL 40 MEQ PO (16:12)
--- NOTE | 2025-05-02 16:55 | HPS.HSE ---
Addendum entered and electronically signed by Kirstie Reynolds MD 05/02/25 18:20:
Qtc of 529 secondary to antiemetics. Will give tigan for now for nausea if needed. Recheck EKG in the morning.
Original Note:
Family Physician
-
Family Physician: Martha Fernando
Chief Complaint
-
vomiting
History of Present Illness
79-year-old female past medical history of metastatic pancreatic cancer completed chemotherapy and recently radiation to the pelvis, hypertension, hyperlipidemia, COPD presenting with vomiting. Patient has been unable to tolerate p.o. intake for
the past 1 to 2 weeks. She was receiving chemotherapy/radiation until few months ago but was told there were no more treatment options available. She denies abdominal pain but is tender to palpation of the abdomen. She had a small bowel movement
yesterday. She has lost weight. Denies diarrhea. Denies fevers or chills. She has decreased urinary output.
Medical History
Past Medical History
Past Medical History: Reports Other (metastatic pancreatic cancer completed chemotherapy and recently radiation to the pelvis, hypertension, hyperlipidemia, COPD)
Past Surgical History: Reports Other (Hemorrhoidectomy))
Social History
Tobacco: Smoker
Alcohol: None
Drug: None
Family History
Family History: Not pertinent
Allergies / Home Medications
Allergies reflects when Allergies were last updated in [facility].
Home Medications with original date entered in [facility]
Allergy/Medication List:
Allergies
Allergy/AdvReac Type Severity Reaction Status Date / Time
No Known Allergies Allergy Verified 05/02/25 14:10
Home Medications
levothyroxine 112 mcg tablet 112 mcg PO DAILY Thyroid 02/02/18
losartan 25 mg tablet 25 mg PO DAILY Blood Pressure 11/21/23
tiotropium 2.5 mcg-olodaterol 2.5 mcg/actuation mist for inhalation (Stiolto Respimat) 1 puff inhalation R DAILY Lung/Breathing Issues 11/21/23
albuterol sulfate 90 mcg/actuation aerosol inhaler 1 puff inhalation R QIDPRN PRN sob 11/19/24
aspirin 81 mg chewable tablet 81 mg PO DAILY 11/19/24
omeprazole 20 mg capsule,delayed release 20 mg PO BID 11/19/24
ondansetron 8 mg disintegrating tablet 8 mg PO Q8HPRN PRN nausea 11/19/24
prochlorperazine maleate 10 mg tablet 10 mg PO Q8HPRN PRN nausea 11/19/24
gabapentin 300 mg capsule 300 mg PO HS 05/02/25
Review of Systems
-
History Source: Patient
A 12 point ROS was completed and negative except as noted: Yes
Constitutional: Reports No Symptoms
EENT: Reports No Symptoms
Respiratory: Reports No Symptoms
Cardiac: Reports No Symptoms
Abdomen/GI: Reports See HPI
: Reports No Symptoms
Musculoskeletal: Reports No Symptoms
Skin: Reports No Symptoms
Neurological: Reports No Symptoms
Endocrine: Reports No Symptoms
Hematologic/Lymphatic: Reports No Symptoms
Psych: Reports No Symptoms
Physical Exam
Vital Signs
Vital Signs
Temp Pulse Resp BP Pulse Ox
98.5 F 71 8 105/86 98
05/02/25 14:08 05/02/25 16:30 05/02/25 16:30 05/02/25 16:00 05/02/25 16:30
Physical Exam
General: Well Developed, Well Nourished and No Apparent Distress
HEENT: NormoCephalic, Moist mucous membranes and Atraumatic
Respiratory: Clear
Cardiac: S1/S2 and Regular Rhythm; No Murmur or Rub
GI: Non Distended, Normal Bowel Sounds and Tender (right perimumblical tenderness ); No Organomegaly
Rectal: Deferred by Provider
Musculoskeletal: No Clubbing, No Cyanosis and No Edema
Skin: No Rash
Neuro: Nonfocal/grossly intact
Laboratory Results
-
05/02/25 15:06
05/02/25 15:06
Laboratory Results
Total Bilirubin 1.4 mg/dl (0.2-1.3) H 05/02/25 15:06
AST 31 U/L (14-36) 05/02/25 15:06
ALT 18 U/L (0-35) 05/02/25 15:06
Alkaline Phosphatase 90 U/L (38-126) 05/02/25 15:06
Lipase 71 U/L (23-300) 05/02/25 15:06
Data Reviewed
-
Lab Data: Labs Reviewed by me
Old Records: Reviewed
Impression/Plan
-
IMPRESSION:
PLAN:
# Vomiting secondary to pancreatic cancer
# Metastatic pancreatic cancer
- Status post chemotherapy and radiation
- Regular diet as tolerated
- IV fluids
- Zofran, prochlorperazine as needed
- Continue gabapentin for pain
# Hypokalemia secondary to vomiting
- Potassium repletion
# Acute kidney injury prerenal
-Creatinine 2.7
- IV fluids
- Hold losartan
Essential hypertension
- Hold losartan
Hyperlipidemia
COPD
- Continue inhalers
Hypothyroidism
- Continue levothyroxine
Smoker
- Has been smoking until recently because she has been feeling sick
DNR/DNI
DVT prophylaxis�heparin
Regular diet
[2025-05-02] MEDS: HEPARIN 5000 UNITS SC (20:27)
[2025-05-02] MEDS: COMPAZINE 10 MG IV (20:27)
[2025-05-02] MEDS: NEURONTIN 300 MG PO (21:22)
[2025-05-02] MEDS: TYLENOL 650 MG PO (23:26)
[2025-05-03] MEDS: COMPAZINE 10 MG IV ×2 (03:18→16:59)
[2025-05-03] MEDS: NSS 1000 IV ×2 (05:37→15:55)
[2025-05-03] MEDS: SYNTHROID 112 MCG PO (05:37)
[2025-05-03 05:58] LABS: Hematocrit 36.7 % (37.0-47.0); Hemoglobin 12.9 g/dL (12.0-16.0); Mean Corp Hgb Conc. 35.1 g/dL (33.0-37.0); Mean Corpuscular Volume 89.5 fL (81.0-99.0); Nucleated Red Blood Cells % 0 %; Platelet Count 177 10^3/uL (130-400); Red Cell Dist. Width 14.0 % (11.5-14.5)
[2025-05-03 06:18] LABS: ALT (SGPT) 16 U/L (0-35); AST (SGOT) 26 U/L (14-36); Albumin 3.7 g/dl (3.5-5.0); Alkaline Phosphatase 88 U/L (38-126); Blood Urea Nitrogen 65 mg/dl (7-17); Calcium 8.4 mg/dl (8.4-10.2); Carbon Dioxide 40 mmol/L (22-30); Chloride 88 mmol/L (98-107); Estimated Creatinine Clearance 16 ml/min; Glucose 102 mg/dl (70-99); Potassium 3.1 mmol/L (3.5-5.1); Sodium 134 mmol/L (135-145); Total Protein 6.3 g/dl (6.3-8.2); eGFR 19.32
[2025-05-03 07:00] VITALS: BP 124/63
--- NOTE | 2025-05-03 08:00 | W.PN.HOSP.TC ---
Today's Communication/Plan
-
Continue IV fluid
replace potassium,
monitor kidney function
Assessment / Plan
Assessment / Plan
Impression:
79-year-old female past medical history of metastatic pancreatic cancer completed chemotherapy and recently radiation to the pelvis, hypertension, hyperlipidemia, COPD presenting with vomiting. Patient has been unable to tolerate p.o. intake for
the past 1 to 2 weeks. She was receiving chemotherapy/radiation until few months ago but was told there were no more treatment options available. She denies abdominal pain but is tender to palpation of the abdomen. She had a small bowel movement
yesterday. She has lost weight. Denies diarrhea. Denies fevers or chills. She has decreased urinary output.
Patient started on IV fluid, nausea medications, hypokalemia replaced.
Creatinine improved with IV fluid.
Assessment/plan:
# Vomiting secondary to pancreatic cancer
# Metastatic pancreatic cancer
- Status post chemotherapy and radiation
- Regular diet as tolerated
- IV fluids
- Zofran, prochlorperazine as needed
- Continue gabapentin for pain
# Hypokalemia secondary to vomiting
- Potassium repletion
# Acute kidney injury prerenal
-Creatinine 2.7
- IV fluids
- Hold losartan
Essential hypertension
- Hold losartan
COPD
- Continue inhalers
Hypothyroidism
- Continue levothyroxine
Smoker
- Has been smoking until recently because she has been feeling sick
CODE STATUS: DNR
DVT prophylaxis: Heparin
Diet: Regular diet
Disposition: Continue IV fluid, replace potassium, monitor kidney function
Total time spent on today's encounter was 65 minutes which included time spent in counseling the patient/family regarding diagnosis and treatment plan as listed above, goals of care, and symptom management. Case was discussed with nursing staff,
specialists, and care coordinators/case management. All labs and imaging personally reviewed by me. Remainder the time spent in detailed review of previous records, lab data, imaging, and other medical provider documentation.
Anticipated Discharge: > 48 hours
Subjective/Interval History
-
Date of Service: May 03, 2025
Patient seen and examined at bedside, nausea and vomiting slightly improved, creatinine slightly improved.
Potassium still low.
Objective Data
-
Labs:
Laboratory Results
05/03/25
05:24
WBC 11.2 H
Hgb 12.9
Hct 36.7 L
Plt Count 177 D
Sodium 134 L
Potassium 3.1 L
Chloride 88 L
Carbon Dioxide 40 H
BUN 65 H
Creatinine 2.5 H
Glucose 102 H
Calcium 8.4
Total Bilirubin 1.0
AST 26
ALT 16
Alkaline Phosphatase 88
Vital Signs:
Vital Signs
Temp Pulse Resp BP Pulse Ox
99.2 F 79 16 124/63 95
05/03/25 07:00 05/03/25 07:00 05/03/25 07:00 05/03/25 07:00 05/03/25 07:00
Physical Exam
-
General: Appears Chronically Ill
HEENT: Normocephalic, Atraumatic, Moist Mucous Membranes, No Ptosis, PERRLA and Nose Appears Normal
Respiratory: Clear to Auscultation and Non Labored Respirations
Cardiac: Regular Rhythm and S1/S2
Breast: Deferred by me
GI: Soft, Nontender, Nondistended and Normal Bowel Sounds
Genito-urinary: No Costovertebral Tender
Musculoskeletal: No Clubbing, No Cyanosis and No Edema
Skin: Warm
Neuro: Awake, Alert, Oriented, AO x 3 and No Motor Deficits
Psych: Calm
Data Reviewed
-
Diagnostic Radiology: Image personally visualized and interpreted and Report Reviewed by me
CT Scan: Image personally visualized and interpreted and Report Reviewed by me
Ultrasound: Image personally visualized and interpreted and Report Reviewed by me
MRI: Image personally visualized and interpreted and Report Reviewed by me
Medical Tests (Nuc Med, Echo etc): Image personally visualized and interpreted and Report Reviewed by me
Labs: Labs Reviewed by me
Old Records: Reviewed
[2025-05-03] MEDS: LOW STRENGTH ASPIRIN 81 MG PO (08:06)
[2025-05-03] MEDS: PROTONIX 40 MG PO (08:06)
[2025-05-03] MEDS: HEPARIN 5000 UNITS SC ×2 (08:15→20:09)
[2025-05-03] MEDS: STRIVERDI RESPIMAT 2 PUFF INH (08:18)
[2025-05-03] MEDS: SPIRIVA RESPIMAT 2.5 MCG 2 PUFF INH (08:18)
[2025-05-03 11:00] VITALS: BP 135/69
[2025-05-03] MEDS: KCL 160 MEQ IV (11:05)
[2025-05-03 11:32] VITALS: BP 135/69
[2025-05-03 14:15] VITALS: BMI 21.3
[2025-05-03 15:00] VITALS: BP 138/68
[2025-05-03 19:00] VITALS: BP 144/64
[2025-05-03] MEDS: NEURONTIN PO (21:07)
[2025-05-03 23:00] VITALS: BP 101/73
[2025-05-04] MEDS: COMPAZINE 10 MG IV (01:21)
[2025-05-04] MEDS: NSS 1000 IV ×3 (01:24→23:03)
[2025-05-04 03:00] VITALS: BP 153/70
[2025-05-04] MEDS: SYNTHROID 112 MCG PO (05:31)
[2025-05-04 05:55] LABS: Hematocrit 38.2 % (37.0-47.0); Hemoglobin 12.7 g/dL (12.0-16.0); Mean Corp Hgb Conc. 33.2 g/dL (33.0-37.0); Mean Corpuscular Volume 90.7 fL (81.0-99.0); Platelet Count 183 10^3/uL (130-400); Red Cell Dist. Width 14.1 % (11.5-14.5)
[2025-05-04 06:37] LABS: Blood Urea Nitrogen 53 mg/dl (7-17); Calcium 8.6 mg/dl (8.4-10.2); Carbon Dioxide 34 mmol/L (22-30); Chloride 95 mmol/L (98-107); Estimated Creatinine Clearance 20 ml/min; Glucose 106 mg/dl (70-99); Potassium 3.1 mmol/L (3.5-5.1); Sodium 138 mmol/L (135-145); eGFR 25.26
--- NOTE | 2025-05-04 06:43 | PTCARENOTE ---
Pt. vomited moderate amount of green emesis three times this shift. PRN Compazine administered per orders. Patient endorses that emesis is the same color as it has been at home. ZACH Strickland made aware. This RN suggested further studies d/t
emesis and lack of BM. New order rec'd for suppository. Updated day shift RN. Call dye within reach. Plan of care ongoing.
[2025-05-04] MEDS: SPIRIVA RESPIMAT 2.5 MCG 2 PUFF INH (07:19)
[2025-05-04] MEDS: STRIVERDI RESPIMAT 2 PUFF INH (07:19)
[2025-05-04 07:35] VITALS: BP 138/65
[2025-05-04] MEDS: DULCOLAX 10 MG RECTAL (08:06)
[2025-05-04] MEDS: PROTONIX 40 MG PO (08:09)
[2025-05-04] MEDS: HEPARIN 5000 UNITS SC ×2 (08:09→19:54)
[2025-05-04] MEDS: LOW STRENGTH ASPIRIN 81 MG PO (08:09)
[2025-05-04] MEDS: KCL 270 MEQ IV (08:09)
[2025-05-04 11:04] VITALS: BP 141/69
[2025-05-04] MEDS: TIGAN 200 MG IM (11:39)
--- NOTE | 2025-05-04 11:48 | W.PN.HOSP.TC ---
Today's Communication/Plan
-
Continue IV fluid
replace potassium,
monitor kidney function
Tigan
Assessment / Plan
Assessment / Plan
Impression:
79-year-old female past medical history of metastatic pancreatic cancer completed chemotherapy and recently radiation to the pelvis, hypertension, hyperlipidemia, COPD presenting with vomiting. Patient has been unable to tolerate p.o. intake for
the past 1 to 2 weeks. She was receiving chemotherapy/radiation until few months ago but was told there were no more treatment options available. She denies abdominal pain but is tender to palpation of the abdomen. She had a small bowel movement
yesterday. She has lost weight. Denies diarrhea. Denies fevers or chills. She has decreased urinary output.
Patient started on IV fluid, nausea medications, hypokalemia replaced.
Creatinine improved with IV fluid.
Assessment/plan:
# Vomiting secondary to pancreatic cancer
# Metastatic pancreatic cancer
- Status post chemotherapy and radiation
- Regular diet as tolerated
- IV fluids
- Patient was prochlorperazine as needed
-Significant nausea and vomiting, switched to Tigan
- Continue gabapentin for pain
# Hypokalemia secondary to vomiting
- Potassium repletion
# Acute kidney injury prerenal
-Creatinine improved
- IV fluids
- Continue to hold hold losartan
Essential hypertension
- Continue to hold losartan
COPD
- Continue inhalers
Hypothyroidism
- Continue levothyroxine
Smoker
- Has been smoking until recently because she has been feeling sick
CODE STATUS: DNR
DVT prophylaxis: Heparin
Diet: Regular diet
Disposition: Continue IV fluid, replace potassium, monitor kidney function, Tigan.
Total time spent on today's encounter was 65 minutes which included time spent in counseling the patient/family regarding diagnosis and treatment plan as listed above, goals of care, and symptom management. Case was discussed with nursing staff,
specialists, and care coordinators/case management. All labs and imaging personally reviewed by me. Remainder the time spent in detailed review of previous records, lab data, imaging, and other medical provider documentation.
Anticipated Discharge: > 48 hours
Subjective/Interval History
-
Date of Service: May 04, 2025
Patient still have significant nausea and vomiting overnight, dropped her potassium today which replaced.
Changed [facility] medicine to [facility]
Objective Data
-
Labs:
Laboratory Results
05/04/25
05:33
WBC 11.3 H
Hgb 12.7
Hct 38.2
Plt Count 183
Sodium 138
Potassium 3.1 L
Chloride 95 L
Carbon Dioxide 34 H
BUN 53 H
Creatinine 2.0 H
Glucose 106 H
Calcium 8.6
Vital Signs:
Vital Signs
Temp Pulse Resp BP Pulse Ox
98.1 F 71 14 141/69 97
05/04/25 11:04 05/04/25 11:04 05/04/25 11:04 05/04/25 11:04 05/04/25 11:04
I&O
05/03/25 05/04/25 05/05/25
06:59 06:59 06:59
Intake Total 600 / 600 480 / 480
Balance 600 / 600 480 / 480
Physical Exam
-
General: Appears Chronically Ill
HEENT: Normocephalic, Atraumatic, Moist Mucous Membranes, No Ptosis, PERRLA and Nose Appears Normal
Respiratory: Clear to Auscultation and Non Labored Respirations
Cardiac: Regular Rhythm and S1/S2
Breast: Deferred by me
GI: Soft, Nontender, Nondistended and Normal Bowel Sounds
Genito-urinary: No Costovertebral Tender
Musculoskeletal: No Clubbing, No Cyanosis and No Edema
Skin: Warm
Neuro: Awake, Alert, Oriented, AO x 3 and No Motor Deficits
Psych: Calm
[2025-05-04 15:04] VITALS: BP 143/77
[2025-05-04] MEDS: ZOFRAN 4 MG IV (17:28)
--- NOTE | 2025-05-04 18:35 | PTCARENOTE ---
Patient continues with episodes of vomiting during shift, given PRN Tigan and Zofran with some relief. Poor appetite for all meals. Pt noted to be flat, withdrawn, and depressed about current situation. in during shift, he brought Gatorade
and snacks. Pt given K rider for K 3.1, tolerated infusion well. Continues on IVF. Cheked frequently throughout shift. Call dye within reach.
[2025-05-04 19:00] VITALS: BP 158/77
[2025-05-04] MEDS: TYLENOL 650 MG PO (20:58)
[2025-05-04] MEDS: NEURONTIN PO (21:10)
[2025-05-04 23:00] VITALS: BP 156/73
[2025-05-04] MEDS: DILAUDID 0.25 MG IV (23:03)
[2025-05-05] MEDS: ZOFRAN 4 MG IV ×3 (01:46→19:42)
[2025-05-05] MEDS: DILAUDID 0.25 MG IV ×5 (02:14→21:45)
[2025-05-05 03:00] VITALS: BP 160/70
[2025-05-05 05:49] LABS: Hematocrit 39.6 % (37.0-47.0); Hemoglobin 13.1 g/dL (12.0-16.0); Mean Corp Hgb Conc. 33.1 g/dL (33.0-37.0); Mean Corpuscular Volume 91.7 fL (81.0-99.0); Platelet Count 175 10^3/uL (130-400); Red Cell Dist. Width 14.1 % (11.5-14.5)
[2025-05-05] MEDS: SYNTHROID 112 MCG PO (05:53)
[2025-05-05 06:13] LABS: Blood Urea Nitrogen 45 mg/dl (7-17); Calcium 8.8 mg/dl (8.4-10.2); Chloride 94 mmol/L (98-107); Estimated Creatinine Clearance 24 ml/min; Glucose 128 mg/dl (70-99); Potassium 3.2 mmol/L (3.5-5.1); Sodium 141 mmol/L (135-145); eGFR 30.70
[2025-05-05 06:24] LABS: Carbon Dioxide 40 mmol/L (22-30)
[2025-05-05 07:29] VITALS: BP 123/82
[2025-05-05] MEDS: STRIVERDI RESPIMAT 2 PUFF INH (07:48)
[2025-05-05] MEDS: SPIRIVA RESPIMAT 2.5 MCG 2 PUFF INH (07:49)
[2025-05-05] MEDS: PROTONIX 40 MG PO (08:10)
[2025-05-05] MEDS: LOW STRENGTH ASPIRIN 81 MG PO (08:10)
[2025-05-05] MEDS: NSS 1000 IV ×2 (08:16→23:24)
[2025-05-05] MEDS: HEPARIN SC ×2 (08:25→20:33)
[2025-05-05] MEDS: KCL 270 MEQ IV (09:15)
[2025-05-05 09:28] LABS: Magnesium 2.3 mg/dl (1.6-2.3)
[2025-05-05 11:40] VITALS: BP 156/71
--- NOTE | 2025-05-05 12:51 | W.PN.HOSP.TC ---
Today's Communication/Plan
-
Monitor vitals
See plan
Check obstruction series
Continue with antiemetic
Replete K
Monitor renal function
Assessment / Plan
Assessment / Plan
General: Appears Chronically Ill
HEENT: Normocephalic, Atraumatic, Moist Mucous Membranes
Respiratory: Clear to Auscultation and Non Labored Respirations
Cardiac: Regular Rhythm and S1/S2
GI: Soft, Nontender, Nondistended and Normal Bowel Sounds
Musculoskeletal: No Edema
Neuro: Awake, Alert, Oriented, AO x 3 and No Motor Deficits
Psych: Calm
Impression:
79-year-old female past medical history of metastatic pancreatic cancer completed chemotherapy and recently radiation to the pelvis, hypertension, hyperlipidemia, COPD presenting with vomiting. Patient has been unable to tolerate p.o. intake for
the past 1 to 2 weeks. She was receiving chemotherapy/radiation until few months ago but was told there were no more treatment options available. She denies abdominal pain but is tender to palpation of the abdomen. She had a small bowel movement
yesterday. She has lost weight. Denies diarrhea. Denies fevers or chills. She has decreased urinary output.
Patient started on IV fluid, nausea medications, hypokalemia replaced.
Creatinine improved with IV fluid.
Assessment/plan:
# Vomiting secondary to pancreatic cancer
# Metastatic pancreatic cancer
- Status post chemotherapy and radiation
- Regular diet as tolerated
- IV fluids
- Patient was prochlorperazine as needed
-Significant nausea and vomiting, switched to Tigan
- Continue gabapentin for pain
check abdominal xray
# Hypokalemia secondary to vomiting
- Potassium repletion
# Acute kidney injury prerenal
-Creatinine improved
- IV fluids
- Continue to hold hold losartan
Essential hypertension
- Continue to hold losartan
COPD
- Continue inhalers
Hypothyroidism
- Continue levothyroxine
Smoker
- Has been smoking until recently because she has been feeling sick
CODE STATUS: DNR
DVT prophylaxis: Heparin
Total time spent on today's encounter was 52 minutes which included time spent in counseling the patient/family regarding diagnosis and treatment plan as listed above, goals of care, and symptom management. Case was discussed with nursing staff,
specialists, and care coordinators/case management. All labs and imaging personally reviewed by me. Remainder the time spent in detailed review of previous records, lab data, imaging, and other medical provider documentation.
Anticipated Discharge: 24 - 48 hours
Subjective/Interval History
-
Date of Service: May 05, 2025
has nausea and vomiting
Objective Data
-
Labs:
Laboratory Results
05/05/25
05:18
WBC 14.6 H
Hgb 13.1
Hct 39.6
Plt Count 175
Sodium 141
Potassium 3.2 L
Chloride 94 L
Carbon Dioxide 40 H
BUN 45 H
Creatinine 1.7 H
Glucose 128 H
Calcium 8.8
Vital Signs:
Vital Signs
Temp Pulse Resp BP Pulse Ox
98.1 F 71 14 156/71 97
05/05/25 11:40 05/05/25 11:40 05/05/25 11:40 05/05/25 11:40 05/05/25 11:40
I&O
05/04/25 05/05/25 05/06/25
06:59 06:59 06:59
Intake Total 600 / 600 1440 / 1440
Balance 600 / 600 1440 / 1440
--- NOTE | 2025-05-05 13:44 | PN.CDI ---
CDI
- -
CDI:
Physician Documentation Request
Admit Date: 05/02/25 17:49
Dear Doctor Nacho,
Please review the following and provide your response in the progress notes.
Clinical Indicators:
Pt admitted with Pancreatic cancer /vomiting /JODI
Documented per nutrition note 05/03, ' CBW (05/02) 124lb BMI 21.3 normal wt/ht. Reported 20lb 16% significant wt loss x 4 months.....Pt meets criteria for severe protein calorie malnutrition of chronic illness with >7.5% wt loss x 90days, prolonged
poor intake prior to admit <75% for >1 month. Pt has declined po supplements as this time. Continue regular diet, encouragement during meals and will add fortified pudding with all meals. '
Based on the above information and your assessment, which of the following most accurately represents the patient's nutritional status?
Severe Protein Calorie Malnutrition
Other (please specify)
[place] Criteria (ACP Hospitalist 2017)
2 or more criteria must be present for either
non severe or severe malnutrition
Note that the criteria differs related to the
presence of an acute or chronic illness
Acute Illness Chronic Illness
Energy Intake Non Severe: <75% for >7 days Non Severe: <75% for >1 month
Severe: <50% for >5 days Severe: <75% for >1 month
Weight Loss Non Severe: 1-2% over 1 week Non Severe: 5% over 1 month
5% over 1 month 7.5% over 3 months
7.5% over 3 months 10% over 6 months
1 year N/A 20% over 1 year
Severe: >2% over 1 week Severe: >5% over 1 month
>5% over 1 month >7.5% over 3 months
>7.5% over 3 months >10% over 6 months
1 year N/A >20% over 1 year
Body Fat Non Severe: Mild Decrease Non Severe: Mild Loss
Severe: Moderate Decrease Severe: Severe Loss
Muscle Mass Non Severe: Mild Decrease Non Severe: Mild Loss
Severe: Moderate Decrease Severe: Severe Loss
Fluid Accumulation Non Severe: Mild Accumulation Non Severe: Mild Accumulation
Severe: Moderate to severe Severe: Moderate to severe
accumulation accumulation
Reduced [employer] Strength Non Severe: N/A Non Severe: N/A
Severe: Measurably reduced Severe: Measurably reduced
Use of terms such as suspected, likely, concern for, or probable (associated with a specific diagnosis that is being evaluated, monitored, or treated as if it exists) are acceptable and can be coded in the inpatient setting, when documented at the
time of discharge.
Thank you,
Claritza Silverman RN
CDI Specialist
[place] [facility]
Please use your independent medical judgment in providing your response.
[2025-05-05 15:13] VITALS: BP 152/80
--- NOTE | 2025-05-05 16:25 | CM ---
CM met with patient to complete IA. Patient has metastatic pancreatic cancer and appears frail and weak. She lives with her in a two story home with 8 entry steps; 12 steps to the second floor. No hx of DME, VN, or SNF per patient. CM
will follow up with for confirmation of prior living situation.
PCP: Dr. Fernando
Pharmacy: [facility] in [place].
CM will continue to follow for discharge planning and support; pt advised previously that there were no additional treatment options available.
Plan: CM will follow to coordinate all identified needs at time of discharge.
[2025-05-05 19:00] VITALS: BP 166/77
[2025-05-05] MEDS: NEURONTIN 300 MG PO (21:44)
[2025-05-05 23:00] VITALS: BP 162/92
[2025-05-06] MEDS: TIGAN 200 MG IM (00:24)
[2025-05-06] MEDS: DILAUDID 0.25 MG IV ×4 (00:55→18:17)
[2025-05-06 03:00] VITALS: BP 160/89
[2025-05-06] MEDS: ZOFRAN 4 MG IV ×3 (05:27→18:16)
[2025-05-06] MEDS: SYNTHROID 112 MCG PO (05:49)
[2025-05-06 06:29] LABS: Hematocrit 40.4 % (37.0-47.0); Hemoglobin 13.5 g/dL (12.0-16.0); Mean Corp Hgb Conc. 33.4 g/dL (33.0-37.0); Mean Corpuscular Volume 93.5 fL (81.0-99.0); Nucleated Red Blood Cells % 0 %; Platelet Count 175 10^3/uL (130-400); Red Cell Dist. Width 14.3 % (11.5-14.5)
[2025-05-06 06:42] LABS: Blood Urea Nitrogen 42 mg/dl (7-17); Calcium 9.0 mg/dl (8.4-10.2); Carbon Dioxide 37 mmol/L (22-30); Chloride 98 mmol/L (98-107); Estimated Creatinine Clearance 24 ml/min; Glucose 108 mg/dl (70-99); Magnesium 2.2 mg/dl (1.6-2.3); Potassium 3.3 mmol/L (3.5-5.1); Sodium 143 mmol/L (135-145); eGFR 30.70
[2025-05-06 07:26] VITALS: BP 142/70
[2025-05-06] MEDS: PROTONIX 40 MG PO (07:54)
[2025-05-06] MEDS: LOW STRENGTH ASPIRIN 81 MG PO (07:54)
[2025-05-06] MEDS: HEPARIN SC ×2 (07:57→19:44)
[2025-05-06] MEDS: SPIRIVA RESPIMAT 2.5 MCG 2 PUFF INH (08:01)
[2025-05-06] MEDS: STRIVERDI RESPIMAT 2 PUFF INH (08:02)
[2025-05-06] MEDS: KCL 270 MEQ IV (09:02)
[2025-05-06] MEDS: MIRALAX 17 GRAMS PO (09:02)
[2025-05-06] MEDS: COLACE 100 MG PO ×2 (09:02→19:45)
[2025-05-06] MEDS: NSS 1000 IV ×2 (09:04→18:18)
[2025-05-06 10:56] VITALS: BP 144/72
--- NOTE | 2025-05-06 11:59 | W.PN.HOSP.TC ---
Addendum entered and electronically signed by Manfred Griffith MD 05/06/25 14:50:
Locally�extensive�pancreatic�carcinoma�with�direct�invasion�to�regional�organs�and�involvement�of�the�celiac�axis/superior mesenteric�artery.
Painful�pelvic�mass
New�adnexal�mass�consistent�withmetastases
Per oncology Dr. Dobson on 04/21, hospice was recommended however patient again deferred. Discussed with spouse, given her extent of malignancy not sure if much else to offer. Will try aggressive laxatives and if symptoms still do not improve then
we will need hospice evaluation.
Original Note:
Today's Communication/Plan
-
Monitor vital signs see plan
Start MiraLAX, Colace, Dulcolax p.o. OD
If still no bowel movement then will need enema
If nausea vomiting persist then will might need GI evaluation
Assessment / Plan
Assessment / Plan
General: Appears Chronically Ill
HEENT: Normocephalic, Atraumatic, Moist Mucous Membranes
Respiratory: Clear to Auscultation and Non Labored Respirations
Cardiac: Regular Rhythm and S1/S2
GI: Soft, Nontender, Nondistended and Normal Bowel Sounds
Musculoskeletal: No Edema
Neuro: Awake, Alert, Oriented, AO x 3 and No Motor Deficits
Psych: Calm
Impression:
79-year-old female past medical history of metastatic pancreatic cancer completed chemotherapy and recently radiation to the pelvis, hypertension, hyperlipidemia, COPD presenting with vomiting. Patient has been unable to tolerate p.o. intake for
the past 1 to 2 weeks. She was receiving chemotherapy/radiation until few months ago but was told there were no more treatment options available. She denies abdominal pain but is tender to palpation of the abdomen. She had a small bowel movement
yesterday. She has lost weight. Denies diarrhea. Denies fevers or chills. She has decreased urinary output.
Patient started on IV fluid, nausea medications, hypokalemia replaced.
Creatinine improved with IV fluid.
Assessment/plan:
# Vomiting secondary to pancreatic cancer
# Metastatic pancreatic cancer
- Status post chemotherapy and radiation
- Regular diet as tolerated
- IV fluids
- Patient was prochlorperazine as needed
-Significant nausea and vomiting, switched to Tigan
- Continue gabapentin for pain
Obstruction study negative for obstruction however does have constipation. Started MiraLAX, Colace. Dulcolax suppository
If still no bowel movement then will need enema
If nausea vomiting persist then will might need GI evaluation
# Hypokalemia secondary to vomiting
- Potassium repletion
# Acute kidney injury prerenal
-Creatinine improved
- IV fluids
- Continue to hold hold losartan
Severe Protein Calorie Malnutrition
Essential hypertension
- Continue to hold losartan
COPD
- Continue inhalers
Hypothyroidism
- Continue levothyroxine
Smoker
- Has been smoking until recently because she has been feeling sick
CODE STATUS: DNR
DVT prophylaxis: Heparin
Anticipated Discharge: 24 - 48 hours
Subjective/Interval History
-
Date of Service: May 06, 2025
Still has some nausea vomiting
Objective Data
-
Labs:
Laboratory Results
05/06/25
05:13
WBC 15.8 H
Hgb 13.5
Hct 40.4
Plt Count 175
Sodium 143
Potassium 3.3 L
Chloride 98
Carbon Dioxide 37 H
BUN 42 H
Creatinine 1.7 H
Glucose 108 H
Calcium 9.0
Vital Signs:
Vital Signs
Temp Pulse Resp BP Pulse Ox
97.3 F 80 12 144/72 94
05/06/25 10:56 05/06/25 10:56 05/06/25 10:56 05/06/25 10:56 05/06/25 10:56
I&O
05/05/25 05/06/25 05/07/25
06:59 06:59 06:59
Intake Total 1440 / 1440 1460 / 1460
Balance 1440 / 1440 1460 / 1460
[2025-05-06] MEDS: DULCOLAX 10 MG RECTAL (13:29)
[2025-05-06] MEDS: COMPAZINE 10 MG IV (14:51)
[2025-05-06 15:10] VITALS: BP 155/82
[2025-05-06 19:25] VITALS: BP 163/79
[2025-05-06] MEDS: NEURONTIN PO (21:03)
[2025-05-06 23:28] VITALS: BP 161/90
[2025-05-07] MEDS: ZOFRAN 4 MG IV ×4 (01:03→22:51)
[2025-05-07] MEDS: DILAUDID 0.25 MG IV ×5 (01:08→21:03)
[2025-05-07 03:25] VITALS: BP 158/87
[2025-05-07] MEDS: SYNTHROID 112 MCG PO (05:20)
[2025-05-07] MEDS: NSS 1000 IV ×2 (05:21→17:34)
[2025-05-07 06:03] LABS: Hematocrit 40.4 % (37.0-47.0); Hemoglobin 13.1 g/dL (12.0-16.0); Mean Corp Hgb Conc. 32.4 g/dL (33.0-37.0); Mean Corpuscular Volume 92.7 fL (81.0-99.0); Nucleated Red Blood Cells % 0 %; Platelet Count 167 10^3/uL (130-400); Red Cell Dist. Width 14.4 % (11.5-14.5)
[2025-05-07 06:20] LABS: Blood Urea Nitrogen 46 mg/dl (7-17); Calcium 8.9 mg/dl (8.4-10.2); Carbon Dioxide 39 mmol/L (22-30); Chloride 97 mmol/L (98-107); Estimated Creatinine Clearance 24 ml/min; Glucose 110 mg/dl (70-99); Magnesium 2.1 mg/dl (1.6-2.3); Potassium 3.1 mmol/L (3.5-5.1); Sodium 143 mmol/L (135-145); eGFR 30.70
[2025-05-07 07:21] VITALS: BP 159/81
[2025-05-07] MEDS: STRIVERDI RESPIMAT 2 PUFF INH (07:40)
[2025-05-07] MEDS: SPIRIVA RESPIMAT 2.5 MCG 2 PUFF INH (07:40)
[2025-05-07] MEDS: PROTONIX 40 MG PO (07:51)
[2025-05-07] MEDS: COLACE 100 MG PO ×2 (07:51→19:54)
[2025-05-07] MEDS: LOW STRENGTH ASPIRIN 81 MG PO (07:52)
[2025-05-07] MEDS: MIRALAX 17 GRAMS PO (07:53)
[2025-05-07] MEDS: HEPARIN 5000 UNITS SC (07:56)
[2025-05-07 08:22] LABS: Glucose - Point of Care 95 mg/dl (70-99)
[2025-05-07] MEDS: KCL 270 MEQ IV (09:17)
[2025-05-07 10:54] VITALS: BP 149/83
--- NOTE | 2025-05-07 11:56 | HOSPNOTE ---
Spoke with CM about sending a hospice referral. Attending was asking me to speak with the family about home hospice but patient resides in [facility] and unfortunately we are not licensed in the state of [place]. CM will seek another agency
in [place].
[2025-05-07] MEDS: CITROMA 300 ML PO (12:20)
[2025-05-07] MEDS: TRANSDERM-SCOP 1 PATCH TRANSDERM (12:21)
--- NOTE | 2025-05-07 12:25 | W.PN.HOSP.TC ---
Today's Communication/Plan
-
Monitor vitals
See plan
Mag citrate
Start scopolamine patch
Can also use Haldol if needed
Hospice evaluation
Discussed with patient and spouse
Assessment / Plan
Assessment / Plan
General: Appears Chronically Ill
HEENT: Normocephalic, Atraumatic, Moist Mucous Membranes
Respiratory: Clear to Auscultation and Non Labored Respirations
Cardiac: Regular Rhythm and S1/S2
GI: Soft, tender
Musculoskeletal: No Edema
Neuro: Awake, Alert, Oriented, AO x 3 and No Motor Deficits
Psych: Calm
Impression:
79-year-old female past medical history of metastatic pancreatic cancer completed chemotherapy and recently radiation to the pelvis, hypertension, hyperlipidemia, COPD presenting with vomiting. Patient has been unable to tolerate p.o. intake for
the past 1 to 2 weeks. She was receiving chemotherapy/radiation until few months ago but was told there were no more treatment options available. She denies abdominal pain but is tender to palpation of the abdomen. She had a small bowel movement
yesterday. She has lost weight. Denies diarrhea. Denies fevers or chills. She has decreased urinary output.
Patient started on IV fluid, nausea medications, hypokalemia replaced.
Creatinine improved with IV fluid.
Assessment/plan:
# Vomiting secondary to pancreatic cancer
# Metastatic pancreatic cancer
- Status post chemotherapy and radiation
- Regular diet as tolerated
- IV fluids
- Patient was prochlorperazine as needed
-Significant nausea and vomiting, switched to Tigan
- Continue gabapentin for pain. Also on Dilaudid
Obstruction study negative for obstruction however does have constipation. Not responsive to suppository, laxative and enema. Start mag citrate
Appears secondary to worsening malignancy. Per recent oncology note outpatient has locally extensive pancreatic carcinoma with direct invasion to regional organs and involvement of celiac axis/superior mesenteric artery. Painful pelvic mass. New
adnexal mass consistent with metastases. Per oncology note by Dr. Dobson on 04/21, hospice was recommended however patient at that time deferred. Spoke with patient and spouse again and given her extent of malignancy there is not that many options
per oncology. Patient and family now agreeable to speak to hospice. Hospice consulted.
Start scopolamine patch
Can also use Haldol if needed for nausea and vomiting
# Hypokalemia secondary to vomiting
- Potassium repletion
# Acute kidney injury prerenal
-Creatinine improved
- IV fluids
- Continue to hold hold losartan
Severe Protein Calorie Malnutrition
Essential hypertension
- Continue to hold losartan
COPD
- Continue inhalers
Hypothyroidism
- Continue levothyroxine
Smoker
- Has been smoking until recently because she has been feeling sick
CODE STATUS: DNR
DVT prophylaxis: Heparin
Per recent oncology note outpatient has locally extensive pancreatic carcinoma with direct invasion to regional organs and involvement of celiac axis/superior mesenteric artery. Painful pelvic mass. New adnexal mass consistent with metastases.
Per oncology note by Dr. Dobson on 04/21, hospice was recommended however patient at that time deferred. Spoke with patient and spouse again and given her extent of malignancy there is not that many options per oncology. Patient and family now
agreeable to speak to hospice. Hospice consulted.
I spent a total of 52 minutes with the patient or on the floor. More than 50% of this time involved counseling and coordination of care.
Anticipated Discharge: Within 24 hours
Subjective/Interval History
-
Date of Service: May 07, 2025
Persistently nauseous
Objective Data
-
Labs:
Laboratory Results
05/07/25
05:22
WBC 14.1 H
Hgb 13.1
Hct 40.4
Plt Count 167
Sodium 143
Potassium 3.1 L
Chloride 97 L
Carbon Dioxide 39 H
BUN 46 H
Creatinine 1.7 H
Glucose 110 H
Calcium 8.9
Vital Signs:
Vital Signs
Temp Pulse Resp BP Pulse Ox
97.9 F 96 16 149/83 97
05/07/25 10:54 05/07/25 10:54 05/07/25 10:54 05/07/25 10:54 05/07/25 10:54
I&O
05/06/25 05/07/25 05/08/25
06:59 06:59 06:59
Intake Total 1460 / 1460 1140 / 1140
Balance 1460 / 1460 1140 / 1140
--- NOTE | 2025-05-07 13:43 | CM ---
Addendum entered by Kathy Mccurdy RN 05/07/25 15:17:
Received call from [facility] ( ). [facility] can accept. Ragini will reach out to the patient's spouse to make arrangements for equipment.
[facility]
Original Note:
Reviewed the chart notes and spoke with the patient and spouse at the bedside. Discussed [place] Hospice agencies. Patient's spouse provided CM with a hospice phone number. Phone was to [facility]. Referral placed in [facility]. CM continues
to be available to patient/family and is monitoring medical plan for needs at discharge.
Plan: Discharge to home with hospice services. Waiting on acceptance from agency.
[2025-05-07 14:56] VITALS: BP 159/89
[2025-05-07 19:00] VITALS: BP 150/87
[2025-05-07] MEDS: HEPARIN SC (19:55)
[2025-05-07] MEDS: NEURONTIN PO (21:08)
[2025-05-07 21:49] LABS: Glucose - Point of Care 96 mg/dl (70-99)
[2025-05-07 23:00] VITALS: BP 151/82
[2025-05-08] MEDS: DILAUDID 0.25 MG IV (01:48)
[2025-05-08 03:00] VITALS: BP 153/82
[2025-05-08] MEDS: NSS 1000 IV ×2 (03:46→17:24)
[2025-05-08] MEDS: NSS IV (03:46)
[2025-05-08 05:49] LABS: Hematocrit 41.4 % (37.0-47.0); Hemoglobin 13.6 g/dL (12.0-16.0); Mean Corp Hgb Conc. 32.9 g/dL (33.0-37.0); Mean Corpuscular Volume 90.8 fL (81.0-99.0); Nucleated Red Blood Cells % 0 %; Platelet Count 171 10^3/uL (130-400); Red Cell Dist. Width 14.5 % (11.5-14.5)
[2025-05-08] MEDS: SYNTHROID 112 MCG PO (06:07)
[2025-05-08 06:16] LABS: Blood Urea Nitrogen 55 mg/dl (7-17); Calcium 8.6 mg/dl (8.4-10.2); Chloride 95 mmol/L (98-107); Estimated Creatinine Clearance 23 ml/min; Glucose 104 mg/dl (70-99); Magnesium 2.1 mg/dl (1.6-2.3); Potassium 3.2 mmol/L (3.5-5.1); Sodium 143 mmol/L (135-145); eGFR 28.66
[2025-05-08 06:26] LABS: Carbon Dioxide 40 mmol/L (22-30)
[2025-05-08 07:20] VITALS: BP 134/76
[2025-05-08] MEDS: STRIVERDI RESPIMAT 2 PUFF INH (08:18)
[2025-05-08] MEDS: SPIRIVA RESPIMAT 2.5 MCG 2 PUFF INH (08:18)
[2025-05-08] MEDS: LOW STRENGTH ASPIRIN 81 MG PO (09:07)
[2025-05-08] MEDS: COLACE 100 MG PO ×2 (09:07→21:13)
[2025-05-08] MEDS: PROTONIX 40 MG PO (09:07)
[2025-05-08] MEDS: HEPARIN 5000 UNITS SC ×2 (09:07→21:13)
[2025-05-08] MEDS: KCL 270 MEQ IV (09:08)
[2025-05-08] MEDS: MIRALAX 17 GRAMS PO (09:08)
[2025-05-08 10:45] VITALS: BP 136/75
--- NOTE | 2025-05-08 12:00 | W.PN.HOSP.TC ---
Today's Communication/Plan
-
monitor vitals
see plan
start Compazine standing
MOM enema
pain control
Hospice planning
Discussed with spouse
Assessment / Plan
Assessment / Plan
General: Appears Chronically Ill
HEENT: Normocephalic, Atraumatic, Moist Mucous Membranes
Respiratory: Clear to Auscultation and Non Labored Respirations
Cardiac: Regular Rhythm and S1/S2
GI: Soft, tender
Musculoskeletal: No Edema
Neuro: Awake, Alert, Oriented, AO x 3 and No Motor Deficits
Psych: Calm
Impression:
79-year-old female past medical history of metastatic pancreatic cancer completed chemotherapy and recently radiation to the pelvis, hypertension, hyperlipidemia, COPD presenting with vomiting. Patient has been unable to tolerate p.o. intake for
the past 1 to 2 weeks. She was receiving chemotherapy/radiation until few months ago but was told there were no more treatment options available. She denies abdominal pain but is tender to palpation of the abdomen. She had a small bowel movement
yesterday. She has lost weight. Denies diarrhea. Denies fevers or chills. She has decreased urinary output.
Patient started on IV fluid, nausea medications, hypokalemia replaced.
Creatinine elevated
Assessment/plan:
# Vomiting secondary to pancreatic cancer
# Metastatic pancreatic cancer
- Status post chemotherapy and radiation
- Regular diet as tolerated
- IV fluids
- Patient was prochlorperazine as needed, made Compazine standing. DC Zofran for now and keep Tigan if needed. Also started on scopolamine patch
-Significant nausea and vomiting, switched to Tigan
- Continue gabapentin for pain. Also on Dilaudid
Obstruction study negative for obstruction however does have constipation. Not responsive to suppository, laxative and enema. Start mag citrate
Appears secondary to worsening malignancy. Per recent oncology note outpatient has locally extensive pancreatic carcinoma with direct invasion to regional organs and involvement of celiac axis/superior mesenteric artery. Painful pelvic mass. New
adnexal mass consistent with metastases. Per oncology note by Dr. Dobson on 04/21, hospice was recommended however patient at that time deferred. Spoke with patient and spouse again and given her extent of malignancy there is not that many options
per oncology. Patient and family now agreeable to hospice. Hospice consulted. Plan for home hospice
Started scopolamine patch
Can also use Haldol if needed for nausea and vomiting
# Hypokalemia secondary to vomiting
- Potassium repletion
# Acute kidney injury prerenal
-Creatinine elevated
- IV fluids
- Continue to hold hold losartan
Severe Protein Calorie Malnutrition
Essential hypertension
- Continue to hold losartan
COPD
- Continue inhalers
Hypothyroidism
- Continue levothyroxine
Smoker
- Has been smoking until recently because she has been feeling sick
CODE STATUS: DNR
DVT prophylaxis: Heparin
Per recent oncology note outpatient has locally extensive pancreatic carcinoma with direct invasion to regional organs and involvement of celiac axis/superior mesenteric artery. Painful pelvic mass. New adnexal mass consistent with metastases.
Per oncology note by Dr. Dobson on 04/21, hospice was recommended however patient at that time deferred. Spoke with patient and spouse again and given her extent of malignancy there is not that many options per oncology. Patient and family now
agreeable to speak to hospice. Hospice consulted. Plan for home hospice. Would need to control her NV.
I spent a total of 52 minutes with the patient or on the floor. More than 50% of this time involved counseling and coordination of care.
Anticipated Discharge: Within 24 hours
Subjective/Interval History
-
Date of Service: May 08, 2025
Still nauseous
Objective Data
-
Labs:
Laboratory Results
05/08/25
05:37
WBC 10.8
Hgb 13.6
Hct 41.4
Plt Count 171
Sodium 143
Potassium 3.2 L
Chloride 95 L
Carbon Dioxide 40 H
BUN 55 H
Creatinine 1.8 H
Glucose 104 H
Calcium 8.6
Vital Signs:
Vital Signs
Temp Pulse Resp BP Pulse Ox
98.0 F 102 17 136/75 95
05/08/25 10:45 05/08/25 10:45 05/08/25 10:45 05/08/25 10:45 05/08/25 10:45
I&O
05/07/25 05/08/25 05/09/25
06:59 06:59 06:59
Intake Total 1140 / 1140 150 / 150
Balance 1140 / 1140 150 / 150
[2025-05-08] MEDS: COMPAZINE 10 MG PO ×2 (12:55→21:13)
[2025-05-08 15:14] VITALS: BP 138/78
[2025-05-08 19:00] VITALS: BP 140/77
[2025-05-08] MEDS: NEURONTIN 300 MG PO (21:13)
[2025-05-08 23:00] VITALS: BP 139/82
[2025-05-09] MEDS: BENADRYL 6.25 MG IV (01:44)
[2025-05-09] MEDS: TIGAN 200 MG IM (01:46)
[2025-05-09] MEDS: NSS 1000 IV ×3 (02:59→20:33)
[2025-05-09 03:00] VITALS: BP 150/70
[2025-05-09] MEDS: SYNTHROID 112 MCG PO (05:12)
[2025-05-09] MEDS: COMPAZINE 10 MG PO ×3 (05:12→19:50)
[2025-05-09 07:37] VITALS: BP 138/82
[2025-05-09 07:49] LABS: Hematocrit 42.0 % (37.0-47.0); Hemoglobin 13.9 g/dL (12.0-16.0); Mean Corp Hgb Conc. 33.1 g/dL (33.0-37.0); Mean Corpuscular Volume 92.5 fL (81.0-99.0); Nucleated Red Blood Cells % 0 %; Platelet Count 166 10^3/uL (130-400); Red Cell Dist. Width 14.4 % (11.5-14.5)
[2025-05-09] MEDS: STRIVERDI RESPIMAT 2 PUFF INH (08:05)
[2025-05-09] MEDS: SPIRIVA RESPIMAT 2.5 MCG 2 PUFF INH (08:05)
[2025-05-09 08:33] LABS: Blood Urea Nitrogen 56 mg/dl (7-17); Calcium 8.2 mg/dl (8.4-10.2); Chloride 90 mmol/L (98-107); Estimated Creatinine Clearance 24 ml/min; Glucose 107 mg/dl (70-99); Magnesium 2.1 mg/dl (1.6-2.3); Potassium 2.6 mmol/L (3.5-5.1); Sodium 143 mmol/L (135-145); eGFR 30.70
[2025-05-09 08:49] LABS: Carbon Dioxide 45 mmol/L (22-30)
[2025-05-09] MEDS: PROTONIX 40 MG PO (10:24)
[2025-05-09] MEDS: HEPARIN 5000 UNITS SC ×2 (10:24→19:50)
[2025-05-09] MEDS: LOW STRENGTH ASPIRIN 81 MG PO (10:24)
[2025-05-09] MEDS: KCL 270 MEQ IV ×2 (10:25→15:18)
[2025-05-09] MEDS: MIRALAX 17 GRAMS PO (10:28)
[2025-05-09] MEDS: COLACE 100 MG PO ×2 (10:38→19:50)
[2025-05-09 11:13] VITALS: BP 140/73
--- NOTE | 2025-05-09 12:16 | W.PN.HOSP.TC ---
Today's Communication/Plan
-
Monitor vital signs see plan
Now with BM
Continue with scopolamine, Compazine
Tigan
Replete potassium aggressively
Hopeful DC to hospice tomorrow, texted CM
Assessment / Plan
Assessment / Plan
General: Appears Chronically Ill
HEENT: Normocephalic, Atraumatic, Moist Mucous Membranes
Respiratory: Clear to Auscultation and Non Labored Respirations
Cardiac: Regular Rhythm and S1/S2
GI: Soft, tender
Musculoskeletal: No Edema
Neuro: Awake, Alert, Oriented, AO x 3 and No Motor Deficits
Psych: Calm
Impression:
79-year-old female past medical history of metastatic pancreatic cancer completed chemotherapy and recently radiation to the pelvis, hypertension, hyperlipidemia, COPD presenting with vomiting. Patient has been unable to tolerate p.o. intake for
the past 1 to 2 weeks. She was receiving chemotherapy/radiation until few months ago but was told there were no more treatment options available. She denies abdominal pain but is tender to palpation of the abdomen. She had a small bowel movement
yesterday. She has lost weight. Denies diarrhea. Denies fevers or chills. She has decreased urinary output.
Patient started on IV fluid, nausea medications, hypokalemia replaced.
Creatinine elevated
Assessment/plan:
# Vomiting secondary to pancreatic cancer
# Metastatic pancreatic cancer
- Status post chemotherapy and radiation
- Regular diet as tolerated
- IV fluids
- Patient was prochlorperazine as needed, made Compazine standing. DC Zofran for now and keep Tigan if needed. Also started on scopolamine patch
-Significant nausea and vomiting, switched to Tigan
- Continue gabapentin for pain. Also on Dilaudid
Obstruction study negative for obstruction however does have constipation. Not responsive to suppository, laxative and enema. Start mag citrate
Appears secondary to worsening malignancy. Per recent oncology note outpatient has locally extensive pancreatic carcinoma with direct invasion to regional organs and involvement of celiac axis/superior mesenteric artery. Painful pelvic mass. New
adnexal mass consistent with metastases. Per oncology note by Dr. Dobson on 04/21, hospice was recommended however patient at that time deferred. Spoke with patient and spouse again and given her extent of malignancy there is not that many options
per oncology. Patient and family now agreeable to hospice. Hospice consulted. Plan for home hospice
Started scopolamine patch
Can also use Haldol if needed for nausea and vomiting
enema again 05/08 with response
# Hypokalemia secondary to vomiting
- Potassium repletion
# Acute kidney injury prerenal
-Creatinine elevated
- IV fluids
- Continue to hold hold losartan
Severe Protein Calorie Malnutrition
Essential hypertension
- Continue to hold losartan
COPD
- Continue inhalers
Hypothyroidism
- Continue levothyroxine
Smoker
- Has been smoking until recently because she has been feeling sick
CODE STATUS: DNR
DVT prophylaxis: Heparin
Per recent oncology note outpatient has locally extensive pancreatic carcinoma with direct invasion to regional organs and involvement of celiac axis/superior mesenteric artery. Painful pelvic mass. New adnexal mass consistent with metastases.
Per oncology note by Dr. Dobson on 04/21, hospice was recommended however patient at that time deferred. Spoke with patient and spouse again and given her extent of malignancy there is not that many options per oncology. Patient and family now
agreeable to speak to hospice. Hospice consulted. Plan for home hospice. Would need to control her NV.
I spent a total of 52 minutes with the patient or on the floor. More than 50% of this time involved counseling and coordination of care.
Anticipated Discharge: Within 24 hours
Subjective/Interval History
-
Date of Service: May 09, 2025
Does have nausea and vomiting however improving
Objective Data
-
Labs:
Laboratory Results
05/09/25
07:14
WBC 9.1
Hgb 13.9
Hct 42.0
Plt Count 166
Sodium 143
Potassium 2.6 L*
Chloride 90 L
Carbon Dioxide 45 H
BUN 56 H
Creatinine 1.7 H
Glucose 107 H
Calcium 8.2 L
Vital Signs:
Vital Signs
Temp Pulse Resp BP Pulse Ox
97.8 F 95 17 140/73 97
05/09/25 11:13 05/09/25 11:13 05/09/25 11:13 05/09/25 11:13 05/09/25 11:13
I&O
05/08/25 05/09/25 05/10/25
06:59 06:59 06:59
Intake Total 150 / 150 1540 / 1540
Balance 150 / 150 1540 / 1540
[2025-05-09 14:56] VITALS: BP 131/81
--- NOTE | 2025-05-09 15:12 | CM ---
Pt will need ambulance transport home tomorrow. Please contact [facility], at with transport time when scheduled.
IMM reviewed with Cynthia and her . Form signed and placed in chart.
Plan: Discharge to home via ambulance and hospice care.
[facility]
[2025-05-09 19:26] VITALS: BP 132/76
[2025-05-09] MEDS: NEURONTIN 300 MG PO (22:05)
[2025-05-09 22:34] LABS: Potassium 3.5 mmol/L (3.5-5.1)
[2025-05-09 23:38] VITALS: BP 140/70
[2025-05-10 03:30] VITALS: BP 132/68
[2025-05-10] MEDS: COMPAZINE 10 MG PO ×2 (03:30→11:11)
[2025-05-10] MEDS: SYNTHROID 112 MCG PO (05:59)
[2025-05-10] MEDS: NSS 1000 IV (06:01)
[2025-05-10] MEDS: SPIRIVA RESPIMAT 2.5 MCG 2 PUFF INH (07:30)
[2025-05-10] MEDS: STRIVERDI RESPIMAT 2 PUFF INH (07:30)
[2025-05-10 07:53] VITALS: BP 124/68
[2025-05-10] MEDS: MIRALAX PO (08:33)
[2025-05-10] MEDS: COLACE PO (08:33)
[2025-05-10] MEDS: PROTONIX 40 MG PO (08:36)
[2025-05-10] MEDS: LOW STRENGTH ASPIRIN 81 MG PO (08:36)
[2025-05-10] MEDS: HEPARIN 5000 UNITS SC (08:37)
[2025-05-10 09:35] LABS: Hematocrit 41.1 % (37.0-47.0); Hemoglobin 13.4 g/dL (12.0-16.0); Mean Corp Hgb Conc. 32.6 g/dL (33.0-37.0); Mean Corpuscular Volume 92.4 fL (81.0-99.0); Nucleated Red Blood Cells % 0 %; Platelet Count 172 10^3/uL (130-400); Red Cell Dist. Width 14.5 % (11.5-14.5)
[2025-05-10 09:54] LABS: Blood Urea Nitrogen 57 mg/dl (7-17); Calcium 8.1 mg/dl (8.4-10.2); Chloride 89 mmol/L (98-107); Estimated Creatinine Clearance 23 ml/min; Glucose 107 mg/dl (70-99); Magnesium 2.1 mg/dl (1.6-2.3); Potassium 2.8 mmol/L (3.5-5.1); Sodium 143 mmol/L (135-145); eGFR 28.66
[2025-05-10 10:12] LABS: Carbon Dioxide 43 mmol/L (22-30)
--- NOTE | 2025-05-10 10:59 | W.PN.HOSP.TC ---
Addendum entered and electronically signed by Manfred Griffith MD 05/10/25 11:29:
Time of discharge 38 minutes
Original Note:
Today's Communication/Plan
-
monitor vitals
see plan
patient is tired of blood draws and dont want further draws
cw compazine,scopolamine
can use haldol if needed
home hospice; texted CM to confirm if can go today
Assessment / Plan
Assessment / Plan
General: Appears Chronically Ill
HEENT: Normocephalic, Atraumatic, Moist Mucous Membranes
Respiratory: Clear to Auscultation and Non Labored Respirations
Cardiac: Regular Rhythm and S1/S2
GI: Soft, tender
Musculoskeletal: No Edema
Neuro: Awake, Alert, Oriented, AO x 3 and No Motor Deficits
Psych: Calm
Impression:
79-year-old female past medical history of metastatic pancreatic cancer completed chemotherapy and recently radiation to the pelvis, hypertension, hyperlipidemia, COPD presenting with vomiting. Patient has been unable to tolerate p.o. intake for
the past 1 to 2 weeks. She was receiving chemotherapy/radiation until few months ago but was told there were no more treatment options available. She denies abdominal pain but is tender to palpation of the abdomen. She had a small bowel movement
yesterday. She has lost weight. Denies diarrhea. Denies fevers or chills. She has decreased urinary output.
Patient started on IV fluid, nausea medications, hypokalemia replaced.
Creatinine elevated
Assessment/plan:
# Vomiting secondary to pancreatic cancer
# Metastatic pancreatic cancer
- Status post chemotherapy and radiation
- Regular diet as tolerated
- IV fluids
- Patient was prochlorperazine as needed, made Compazine standing. DC Zofran for now and keep Tigan if needed. Also started on scopolamine patch
-Significant nausea and vomiting, switched to Tigan
- Continue gabapentin for pain. Also on Dilaudid
Obstruction study negative for obstruction however does have constipation. Not responsive to suppository, laxative and enema. Start mag citrate
Appears secondary to worsening malignancy. Per recent oncology note outpatient has locally extensive pancreatic carcinoma with direct invasion to regional organs and involvement of celiac axis/superior mesenteric artery. Painful pelvic mass. New
adnexal mass consistent with metastases. Per oncology note by Dr. Dobson on 04/21, hospice was recommended however patient at that time deferred. Spoke with patient and spouse again and given her extent of malignancy there is not that many options
per oncology. Patient and family now agreeable to hospice. Hospice consulted. Plan for home hospice
Started scopolamine patch
Can also use Haldol if needed for nausea and vomiting
enema again 05/08 with response
# Hypokalemia secondary to vomiting
- Potassium repletion
# Acute kidney injury
-Creatinine elevated; however now going on office and she doesnt want further work up
- IV fluids
- Continue to hold hold losartan
Severe Protein Calorie Malnutrition
Essential hypertension
- Continue to hold losartan
COPD
- Continue inhalers
Hypothyroidism
- Continue levothyroxine
Smoker
- Has been smoking until recently because she has been feeling sick
CODE STATUS: DNR
DVT prophylaxis: Heparin
Per recent oncology note outpatient has locally extensive pancreatic carcinoma with direct invasion to regional organs and involvement of celiac axis/superior mesenteric artery. Painful pelvic mass. New adnexal mass consistent with metastases.
Per oncology note by Dr. Dobson on 04/21, hospice was recommended however patient at that time deferred. Spoke with patient and spouse again and given her extent of malignancy there is not that many options per oncology. Patient and family now
agreeable to speak to hospice. Hospice consulted. Plan for home hospice. Would need to control her NV.
NV improving; on hospice, can use haldol if needed as well
Anticipated Discharge: Today
Subjective/Interval History
-
Date of Service: May 10, 2025
denies pain
Objective Data
-
Labs:
Laboratory Results
05/10/25
08:28
WBC 11.1 H
Hgb 13.4
Hct 41.1
Plt Count 172
Sodium 143
Potassium 2.8 L
Chloride 89 L
Carbon Dioxide 43 H
BUN 57 H
Creatinine 1.8 H
Glucose 107 H
Calcium 8.1 L
Vital Signs:
Vital Signs
Temp Pulse Resp BP Pulse Ox
97.9 F 106 19 124/68 99
05/10/25 07:53 05/10/25 07:53 05/10/25 07:53 05/10/25 07:53 05/10/25 07:53
I&O
05/09/25 05/10/25 05/11/25
06:59 06:59 06:59
Intake Total 1540 / 1540 1829 / 1829
Output Total 3 / 3
Balance 1540 / 1540 182 / 182
[2025-05-10] MEDS: TRANSDERM-SCOP 1 PATCH TRANSDERM (11:11)
[2025-05-10] MEDS: KCL 270 MEQ IV (11:13)
--- NOTE | 2025-05-10 11:18 | CM ---
Addendum entered by Marlen Flynn 05/10/25 11:26:
2:30pm transport today-[facility] liaison notified/ notified
Original Note:
spoke with Ragini from [facility], at - equipment in home
[facility] DNR signed by hospitalist
spoke with
PLAN: Discharge to home via ambulance and hospice care. transport forms on chart
[facility]
--- NOTE | 2025-05-10 11:28 | W.DCSUMMARY ---
Discharge Summary
Discharge Data
Date of Admission: 05/02/25
Date of Discharge: 05/10/25
-
Pending Results: No
Hospital Course
79-year-old female with past medical history of metastatic pancreatic cancer status postchemotherapy and radiation, essential hypertension, COPD, hypothyroidism came to the hospital with intractable nausea and vomiting secondary to metastatic
pancreatic cancer. Abdominal imaging was also consistent with malignancy and constipation. Patient required multiple medication titration for her nausea and vomiting. Given her metastatic cancer with no further treatment and intractable nausea
and vomiting due to malignancy, patient and family decided for hospice. While patient was in the hospital she also had electrolyte disturbances which were repleted. She also had acute kidney injury due to dehydration from nausea and vomiting.
Once her nausea and vomiting was better controlled, she was then discharged home on hospice.
Discharge Plan
-
Patient Disposition: Home with Hospice
Discharge Diagnosis/Procedures: Intractable nausea and vomiting
Constipation
Metastatic pancreatic cancer
Hypokalemia
Diet: As tolerated
Activity: As tolerated
Driving Restrictions: Not until seen by your Dr
Bathing Restrictions: None
Other Services: Hospice
Referrals:
Martha Fernando DO [Family Provider, Family Practice] - in less than 1 week
Prescriptions:
New
acetaminophen 325 mg Tablet
650 mg PO Q6HPRN PRN (Reason: mild pain/ fever>100.5F) Qty: 0 0RF
prochlorperazine maleate 10 mg Tablet
10 mg PO Q8H Qty: 90 0RF
docusate sodium 100 mg Capsule
100 mg PO BID Qty: 0 0RF
scopolamine base 1 mg over 3 days Patch 3 Day
1 patch transdermal Q72H Qty: 5 0RF
bisacodyl [Dulcolax (bisacodyl)] 10 mg Suppository
10 mg MI DAILYPRN PRN (Reason: if no BM in 3 days) Qty: 4 0RF
hydromorphone [Dilaudid] 1 mg/mL Liquid
2 mg PO Q4HPRN PRN (Reason: moderate pain) Qty: 48 0RF
haloperidol lactate 2 mg/mL Concentrate
2 mg PO Q6HPRN PRN (Reason: agitation or nausea or vomiting) Qty: 15 0RF
Rx Instructions:
2mg or 0.5mL every 6 hours as needed
Continued
levothyroxine 112 MCG tablet
112 mcg PO DAILY
Stiolto Respimat 2.5-2.5 mcg/actuation Mist
1 puff INHALATION R DAILY
ondansetron 8 mg Tablet,Disintegrating
8 mg PO Q8HPRN PRN (Reason: nausea)
omeprazole 20 mg Capsule,Delayed Release(Dr/Ec)
20 mg PO BID
aspirin 81 mg Tablet,Chewable
81 mg PO DAILY
albuterol sulfate 90 mcg/actuation Hfa Aerosol Inhaler
1 puff INHALATION R QIDPRN PRN (Reason: sob)
gabapentin 300 mg Capsule
300 mg PO HS
Discontinued
losartan 25 mg Tablet
25 mg PO DAILY
prochlorperazine maleate 10 mg Tablet
10 mg PO Q8HPRN PRN (Reason: nausea)
Discharge Orders:
Discharge Patient (As Directed); Ordered 05/10/25
Ordered By: Manfred Griffith
Discharge Date and Time
Discharge Date/Time: 05/10/25 14:54
Print Language: KOREAN
[2025-05-10 12:13] VITALS: BP 138/70
== END 2025-05-10 14:54 | disposition hospice, home (50) | DRG 435 ==
LOC: 3 WEST ACU 17:49
PROVIDERS: General Practice; Physician Assistant; ADMITTING PHYSICIAN Hospitalist; ATTENDING PHYSICIAN Internal Medicine; EMERGENCY PHYSICIAN Student in an Organized Health Care Education/Training Program; FAMILY PHYSICIAN Family Medicine
DX: C25.9 Malignant neoplasm of pancreas, unspecified (principal); E43 Unspecified severe protein-calorie malnutrition; N17.9 Acute kidney failure, unspecified; C79.89 Secondary malignant neoplasm of other specified sites; C79.82 Secondary malignant neoplasm of genital organs; Z66 Do not resuscitate; Z51.5 Encounter for palliative care; E86.0 Dehydration; R11.2 Nausea with vomiting, unspecified; E03.9 Hypothyroidism, unspecified; E78.00 Pure hypercholesterolemia, unspecified; E87.6 Hypokalemia; F17.200 Nicotine dependence, unspecified, uncomplicated; I10 Essential (primary) hypertension; J44.9 Chronic obstructive pulmonary disease, unspecified; K59.00 Constipation, unspecified; R62.7 Adult failure to thrive; Z79.890 Hormone replacement therapy; Z79.899 Other long term (current) drug therapy; Z92.21 Personal history of antineoplastic chemotherapy; Z92.3 Personal history of irradiation; Z79.82 Long term (current) use of aspirin; Z68.21 Body mass index [BMI] 21.0-21.9, adult
CPT/HCPCS: 74022; 80048; 80053; 82962; 83690; 83735; 84132; 85025; 85027; 93005; 94640; 96361; 96374; 99285

== ENCOUNTER 2025-05-10 22:25 | Inpatient (IN) | payer MEDICARE, OTHER, SELFPAY ==
[2025-05-10 20:54] LABS: Glucose - Point of Care 111 mg/dl (70-99)
[2025-05-10 21:00] VITALS: BP 117/68
[2025-05-10 21:05] LABS: Hematocrit 39.7 % (37.0-47.0); Hemoglobin 13.0 g/dL (12.0-16.0); Mean Corp Hgb Conc. 32.7 g/dL (33.0-37.0); Mean Corpuscular Volume 91.7 fL (81.0-99.0); Nucleated Red Blood Cells % 0.3 %; Platelet Count 193 10^3/uL (130-400); Red Cell Dist. Width 14.4 % (11.5-14.5)
--- NOTE | 2025-05-10 21:05 | ED.CVA ---
History of Present Illness
General
Chief Complaint: CVA/TIA Symptoms
Source: patient, records and ambulance crew
Exam Limitations: none
Time Seen by Provider: 05/10/25 20:52
Nursing documentation reviewed up to this point in time: agreed with
Onset of Stroke Symptoms
Onset of symptoms known: Yes
Date of onset of symptoms: 05/10/25
History of Present Illness
History of Present Illness:
79-year-old female with a past medical history as noted significant for metastatic pancreatic cancer presents to the ER from home via EMS for evaluation after episode of unresponsiveness. Patient was notably just admitted to this hospital and
discharged earlier today�was admitted for vomiting secondary to advanced pancreatic cancer. She was discharged with a plan for home hospice. I spoke to the hospice nurse to obtain collateral history: It sounds like the hospice nurse was there to
do an assessment and intake for home hospice. She says that patient was escorted to the restroom with the assistance of her and while she was on the toilet was witnessed to have unresponsive episode associated with change in color and
severe diaphoresis. She was reportedly hypotensive with blood pressure in the 50s. EMS was called to bring her to the hospital. According to the hospice nurse she has not yet been signed onto hospice care, did not feel comfortable with
plan for home hospice care after this episode this evening and requested that she be transported back to the emergency room for admission and have case management consultation for possible placement or inpatient hospice. The patient says that she
feels very weak and nauseated. She says she has chronic abdominal pain but does not feel it is necessarily worse than usual. She denies feeling chest pain or any other acute issues. She cannot recall exactly what happened this evening leading up
to her passing out.
Past History
Past History
ED Past Medical History: COPD and Hypercholesterolemia; Negative HTN or NIDDM
ED Past Surgical History: Other (Hemorrhoidectomy)
Social History
Tobacco: Smoker
Alcohol: None
Personal:
Living: with family
Review of Systems
Review of Systems
All Other Systems: ROS reviewed and negative except as documented in HPI and ROS
Constitutional: Reports fatigue; Denies fever
Cardiac: Reports syncope; Denies chest pain
ABD/GI: Reports abdominal pain and nausea; Denies vomiting
Musculoskeletal: Denies neck pain or back pain
Neurological: Denies headache
Phy Exam
Physical Exam
Physical Exam:
General: Awake, alert, chronically ill-appearing
Head: Normocephalic, atraumatic
Eyes: Conjunctiva normal, pupils 4 mm equal round and briskly reactive to light bilaterally
Throat: Airway intact, handling secretions
Neck: Trachea midline, supple without meningismus
Lungs: Clear to auscultation bilaterally, no wheezing, rales, rhonchi
Heart: Regular rate and rhythm, no murmurs, gallops, or rubs appreciated
Abd: Soft, mildly distended, mild epigastric tenderness
Neuro: Cranial nerves intact, speech soft but fluid, no aphasia or dysarthria appreciated, no drift in the upper or lower extremities�strength is intact and symmetric, sensory intact in all extremities
Skin: Warm, moist
Extremities: Warm and well-perfused
Scores
NIH Stroke Score
Level of Consciousness: 0 - Alert
LOC Questions: 0-Answers both correctly
LOC Commands: 0-Performs both correctly
Best Horizontal Gaze: 0-Normal
Visual Ziegler: 0=Normal, no visual loss
Facial Palsy: 0=Normal, symmetrical
Motor - Right Arm: 0=No drift 10 seconds
Motor - Left Arm: 0=No drift 10 seconds
Motor - Right Le-No drift 5 seconds
Motor - Left Le-No drift 5 seconds
Limb Ataxia: 0-Absent
Sensation: 0-Normal
Best Language: 0-No aphasia
Dysarthria: 0-Normal
Extinction and Inattention: 0-No abnormality
NIH Total Score:: 0
Course
Orders/Labs/Results
Orders:
Orders
09/13/25 20:38
Electrocardiogram (*1) Urgent
Reason for Study: Other
Other Reason for Exam: Possible Stroke
Bedside Glucose- Treatment ONCE
Cardiac Monitoring- Treatment ONCE
EKG- Treatment ONCE
IV Insert/Care/Rem.- Treatment PRN
Vital Signs As Directed
Frequency: Other
Weight As Directed
Frequency: Once
Comment: ZERO STRETCHER SCALE FOR ACCURATE WEIGHT
05/10/25 20:39
CT HEAD STROKE ALERT W/o Cont Urgent
Comment:
Reason For Exam: cva/tia
05/10/25 20:53
Complete Blood Count/With Diff Urgent
Troponin I Urgent
05/10/25 20:54
Comprehensive Metabolic Panel Urgent
PTT Urgent
Prothrombin Time Urgent
05/10/25 21:19
Ondansetron Injectable [Zofran] 4 mg .ROUTE .STK-MED ONE
Ondansetron Injectable [Zofran] 4 mg IV NOW STA
05/10/25 21:[address] Non Medication Order As Directed
Physician Order: please complete med rec. thanks
Above order entered?: Yes
05/10/25 22:02
Aspirin 300 mg RECTAL NOW STA
Nursing to Place Non Medication Order As Directed
Physician Order: please chart the weight
Above order entered?: Yes
05/10/25 22:13
Heparin Protocol- PTT Orders As Directed
PTT per Heparin protocol: -Obtain CBC and baseline PTT - if not already collected.
-Obtain PTT 6 hours from start of infusion. Then, every 6 hours until 2 consecutive
PTT's are therapeutic. Then, PTT Daily.
-With each rate change, obtain PTT every 6 hours until 2 consecutive PTT's are
therapeutic. Then, PTT Daily.
Notify MD As Directed
Notify physician if: PTT is greater than or equal to 200.
05/10/25 22:14
Potassium Chloride [KCl] 40 meq 0.9% Sodium Chloride 250 ml [Nss] 250 ml IV NOW
05/10/25 22:15
Admit/Transfer Patient As Directed
Co-Sign Provider:
Level of Care: Inpatient admission
Assign to:: Telemetry
Physician / Group: antonio
Diagnosis: syncope
Reason for Telemetry: Syncope
Date to Stop Telemetry: 05/12/25
Time to Stop Telemetry: 11:00
Reason for Hospitalization: syncope
Expected length of stay greater than two midnights?: Yes
ELOS- Estimated Length of Stay in days: 3
I certify the patient meets the requirements for IP care: Yes
Heparin 12912 Units/250 ml 25,000 units in 250 ml IV PER PROTOCOL
Weight to be used for heparin protocol in kilograms (kg):: 55.2
Protocol:: Cardiac Tx/Acute Coronary
PTT Goal Range to be used:: PTT 73 to 111 seconds
Order type:: Initial
INITIAL Infusion Dose (UNITS/KG/hr) & then follow protocol:: 12 units/kg/hr
Infusion Dose in UNITS/hr & then follow protocol (UNITS/hr):: 650
INFUSION RATE in mL/hr & then follow protocol (mL/hr):: 6.5
PTT less than or equal to 64 seconds:: Increase rate by 200 units/hr (+ 2 mL/hr)
PTT 64.1 to 72.9 seconds:: Increase rate by 100 units/hr (+ 1 mL/hr)
PTT 73 to 111 seconds:: Target Range. No change in rate.
PTT 111.1 to 130.9 seconds:: Decrease rate by 100 units/hr (- 1 mL/hr)
PTT 131 to 199.9 seconds:: HOLD for 1 hr. Then decrease rate by 200 units/hr (- 2 mL/hr)
PTT greater than or equal to 200 seconds:: HOLD for 2 hrs & Notify Provider. Then decrease by 200 units/hr (-
2 mL/hr)
Lab follow-up:: Each change, PTT q6h until 2 consecutive are therapeutic. Then PTT
daily.
PRN Pain Medication Management As Directed
May give lesser potent ordered pain med per pt: Yes
preference::
Protocol:: Medication orders for pain may be administered in a
manner that supports deferring to patient preference
when the pt is:
- Requesting an ordered lesser potent pain medication.
Least to most potent pain medications are defined
as: acetaminophen < NSAID < tramadol < opioids
(morphine, oxycodone, hydromorphone).
- Requesting a lesser dose of the same medication IF
ORDERED.
- Requesting a less intrusive route of administration
if both routes are prescribed by the provider (PO <
IV).
05/10/25 22:16
Code Status As Directed
Resuscitation Status: Do not resuscitate
Reached after discussion with pt or family/Healthcare POA: Yes
DNR Bracelet Application ONCE
05/10/25 23:00
Flush (0.9% Sodium Chloride) [Flush (Nss)] See Dose Instructions IV PER PROTOCOL
05/11/25 01:42
Albuterol [ProAIR HFA INHALER] 1 puff INH R QIDPRN PRN sob
Bisacodyl [Dulcolax] 10 mg RECTAL [id number] PRN
Docusate W/Senna [Senokot-S] 1 tablet PO BIDPRN PRN
KCl 20 Meq/D5.45%Sodchl 1000ML [D5/0.45%NSS with KCL 20 MEQ] 20 meq in 1,000 ml IV 80 mls/hr
Polyethylene Glycol Powder [Miralax] 17 grams PO DAILYPRN PRN
Trimethobenzamide [Tigan] 200 mg IM Q6HPRN PRN
hydromorphone [Dilaudid] 2 mg PO Q4HPRN PRN
05/11/25 01:42
CARDIOLOGY CONSULT Routine
Consulting Provider: Pepe Massey
Was physician already notified: No
Reason for consult: elevated trop
Consult Notification Routine
Specialty to Notify: Cardiology
Heparin Protocol- PTT Orders As Directed
PTT per Heparin protocol: -Obtain CBC and baseline PTT - if not already collected.
-Obtain PTT 6 hours from start of infusion. Then, every 6 hours until 2 consecutive
PTT's are therapeutic. Then, PTT Daily.
-With each rate change, obtain PTT every 6 hours until 2 consecutive PTT's are
therapeutic. Then, PTT Daily.
Activity As Directed
Activity Level: As Tolerated
Notify MD As Directed
Notify physician if: PTT is greater than or equal to 200.
Orthostatic Vital Signs As Directed
Orthostatic VS Frequency: Daily
Vital Signs As Directed
Frequency: Per unit guidelines
Ot Eval And Treat Routine
Pt Eval And Treat Routine
Activity Level: As Tolerated
05/11/25 02:00
Prochlorperazine [Compazine] 10 mg PO Q8
Scopolamine [Transderm-Scop] 1 patch TRANSDERM Q72H
05/11/25 Breakfast
NPO
Allow oral meds: Yes
Allow clear liquids: No
Basic Metabolic Panel IN AM
Levothyroxine [Synthroid] 112 mcg PO DAILY @ 0600
05/11/25 08:00
Tiotropium [place] 2.5 Mcg [Spiriva Respimat 2.5 Mcg] 2 puff INH R DAILY
05/11/25 22:00
Gabapentin [Neurontin] 300 mg PO HS
05/12/25 06:00
Basic Metabolic Panel IN AM
Complete Blood Count/No Diff Q2D
Comment: Notify MD if platelet count is <130,000 or decreases by 50% from baseline
05/12/25 11:00
DC Protocol for Telemetry ONCE
05/13/25 06:00
Basic Metabolic Panel IN AM
05/14/25 06:00
Complete Blood Count/No Diff Q2D
Comment: Notify MD if platelet count is <130,000 or decreases by 50% from baseline
05/16/25 06:00
Complete Blood Count/No Diff Q2D
Comment: Notify MD if platelet count is <130,000 or decreases by 50% from baseline
05/18/25 06:00
Complete Blood Count/No Diff Q2D
Comment: Notify MD if platelet count is <130,000 or decreases by 50% from baseline
05/20/25 06:00
Complete Blood Count/No Diff Q2D
Comment: Notify MD if platelet count is <130,000 or decreases by 50% from baseline
05/22/25 06:00
Complete Blood Count/No Diff Q2D
Comment: Notify MD if platelet count is <130,000 or decreases by 50% from baseline
05/24/25 06:00
Complete Blood Count/No Diff Q2D
Comment: Notify MD if platelet count is <130,000 or decreases by 50% from baseline
05/26/25 06:00
Complete Blood Count/No Diff Q2D
Comment: Notify MD if platelet count is <130,000 or decreases by 50% from baseline
Abnormal Lab Results
05/10/25 05/10/25
20:53 20:54
WBC 11.6 H 10^3/uL
(4.8-10.8)
MCHC 32.7 L g/dL
(33.0-37.0)
MPV 10.6 H fL
(7.4-10.4)
Abs Immat Gran (auto) 0.1 H 10^3/uL
(0-0.05)
Absolute Neuts (auto) 9.3 H 10^3/uL
(1.4-6.5)
Absolute Monos (auto) 0.8 H 10^3/uL
(0.1-0.6)
Immature Gran % 1.1 H %
(0-0.5)
Neutrophils % 80.3 H %
(42.2-75.2)
Lymphocytes % 10.3 L %
(20.5-51.1)
APTT 21.4 L Sec
(23.4-35.0)
Potassium 2.9 L mmol/L
(3.5-5.1)
Chloride 86 L mmol/L
(98-107)
Carbon Dioxide 44 H mmol/L
(22-30)
BUN 62 H mg/dl
(7-17)
Creatinine 2.0 H mg/dL
(0.6-1.0)
Glucose 123 H mg/dl
(70-99)
Calcium 8.1 L mg/dl
(8.4-10.2)
Total Bilirubin 1.4 H mg/dl
(0.2-1.3)
Troponin I 0.109 H* ng/ml
Total Protein 5.7 L g/dl
(6.3-8.2)
Albumin 3.1 L g/dl
(3.5-5.0)
POC Glucose 111 H mg/dl
(70-99)
05/10/25 22:03
05/10/25 20:54
Vital Signs
Initial and Last Documented VS:
Initial Vital Signs
Temp Pulse Resp BP Pulse Ox
37.0 C 95 18 117/68 97
05/10/25 21:00 05/10/25 21:00 05/10/25 21:00 05/10/25 21:00 05/10/25 21:00
Last Documented Vital Signs
Temp Pulse Resp BP Pulse Ox
36.8 C 98 12 122/71 99
05/11/25 01:47 05/11/25 01:47 05/11/25 01:47 05/11/25 01:47 05/11/25 01:47
MDM/Problems Addressed
Differential Diagnosis Includes:
Vasovagal episode, anemia, electrolyte derangement, dehydration, lower suspicion for stroke
MDM/Problems Addressed:
79-year-old female presents after an episode of unresponsiveness at home on the toilet. It was associated with hypotension. She was recently admitted for vomiting in the setting of advanced pancreatic cancer and was discharged with a plan for home
hospice but has not yet signed onto hospice care. not comfortable with plan for home hospice at this point and requested transport to the hospital. She was actually called as a prehospital stroke alert and taken for initial CT head which
showed no acute abnormalities�in my judgment low clinical suspicion for stroke no indication for CT angiogram. Overall this seems like a syncopal event likely multifactorial but likely triggered by having BM. Plan to check labs, EKG, troponin.
Monitor on telemetry. Plan for admission pending initial serial assessment with plan for case management consultation to make disposition arrangements.
Chronic conditions affecting care:
Advanced pancreatic cancer
*Pulse Oximetry
Patient hypoxic: no (95%)
*EKG
Interpreted by ED Provider?: Yes
Comparison EKG: no changes
Heart Rate: 103
Rate: tachycardiac
Rhythm: sinus
[place]: normal axis
Interval: normal interval
QRS Pattern: normal QRS
Ischemia: non-specific ST changes
*Critical Care Note
Total Time (30-74mins, 75-104mins- exclusive of procedures): Not Applicable
Data Reviewed
Review of Other/Old Records Reveals: Labs, Records and Progress Notes
Source: patient, records, spouse, ambulance crew and other (Hospice nurse)
Patient Management
Social determinants of health affecting care: Living situation
Discussion with other providers: Hospitalist (Discussed with hospitalist)
Escalation/DeEscalation of care consider admission/obs:
Admission indicated
ED Attending Note
-
Portions of this chart may have been created with voice recognition software.� Occasional wrong word or��sound alike� substitutions may have occurred due to the inherent limitations of voice recognition software.
Discharge Plan
Departure
Patient Disposition: Admit
Date of Disposition: 05/10/25
Time of Disposition: 21:21
Admit to doctor: Antonio
Presentation/result/management discussed w/ accepting MD/DO: Hospitalist
Discharge Problem:
Syncope
Interventions
Interventions:
*Risk Screen - Suicide Last Done: 05/10/25 23:00
*General Assessment Last Done: 05/10/25 22:30
*Neglect/Abuse Screening Last Done: 05/10/25 22:30
*ED- Fall Risk Assessment Last Done: 05/11/25 01:00
*Nursing Disposition Last Done: 05/11/25 01:17
ED- Pulmonary Assessment Last Done: 05/10/25 21:00
ED- Neurological Assessment Last Done: 05/10/25 21:00
ED- Cardiac Assessment Last Done: 05/10/25 21:00
ED Swallowing Screen Last Done: 05/10/25 22:30
Discharge Date and Time
Discharge Date/Time: 05/11/25 01:17
[2025-05-10 21:16] LABS: APTT 21.4 Sec (23.4-35.0); INR 1.03; PT 13.8 Sec (11.4-14.6)
[2025-05-10] MEDS: ZOFRAN 4 MG IV (21:21)
--- NOTE | 2025-05-10 21:38 | HPS.HSE ---
Family Physician
-
Family Physician: INTERVIEWE UNKNOWN - PT NOT
Chief Complaint
-
syncope.
History of Present Illness
79-year-old female with a past medical history as noted significant for metastatic pancreatic cancer,hypothyroidism, PAC, COPD, skin ca, presents to the ER from home via EMS for evaluation after episode of unresponsiveness. hospice nurse gave her
suppository for nausea. she went to the bathroom, sat on the toilet and passed out. she was noted diaphoretic and noted to have low blood pressure. denied fever, chills, chest pain, sob. denied CARBONE, dizzy or syncope. denied abdominal pain, diarrhea.
Patient was notably just admitted to this hospital and discharged earlier today�was admitted for vomiting secondary to advanced pancreatic cancer. She was discharged with a plan for home hospice.she did not sign to the hospice yet. does
not feel comfortable taking care of her at home. as per ' hospice supposed to keep her comfortable but she is not comfortable, she is vomiting and on top she passed out. she might be having a stroke or heart attack'.
admitting for further management.
Medical History
Past Medical History
Past Medical History: Reports Other
Additional Past Medical History:
Arthritis, hypothyroidism, premature atrial contractions, COPD, hypercholesterolemia, skin cancer, eczema, colon polyps
Past Surgical History: Reports Other
Additional Past Surgical History:
Hemorrhoidectomy, MOHS surgery
Social History
Tobacco: Former Smoker
Alcohol: None
Personal:
Living: With Family
Family History
Family History: Not pertinent
Allergies / Home Medications
Allergies reflects when Allergies were last updated in [facility].
Home Medications with original date entered in [facility]
Allergy/Medication List:
Allergies
Allergy/AdvReac Type Severity Reaction Status Date / Time
No Known Allergies Allergy Verified 05/02/25 14:10
Home Medications
levothyroxine 112 mcg tablet 112 mcg PO DAILY Thyroid 02/02/18
tiotropium 2.5 mcg-olodaterol 2.5 mcg/actuation mist for inhalation (Stiolto Respimat) 1 puff inhalation R DAILY Lung/Breathing Issues 11/21/23
albuterol sulfate 90 mcg/actuation aerosol inhaler 1 puff inhalation R QIDPRN PRN sob 11/19/24
aspirin 81 mg chewable tablet 81 mg PO DAILY Blood Clot Prevention/Tx 11/19/24
omeprazole 20 mg capsule,delayed release 20 mg PO BID Gastrointestinal Issue 11/19/24
ondansetron 8 mg disintegrating tablet 8 mg PO Q8HPRN PRN nausea 11/19/24
gabapentin 300 mg capsule 300 mg PO HS Pain 05/02/25
acetaminophen 325 mg tablet 650 mg (2 x 325 mg) PO Q6HPRN PRN mild pain/ fever>100.5F #0 tabs 05/10/25
bisacodyl 10 mg rectal suppository (Dulcolax (bisacodyl)) 10 mg SD DAILYPRN PRN if no BM in 3 days #4 ea 05/10/25
docusate sodium 100 mg capsule 100 mg PO BID #0 caps 05/10/25
haloperidol lactate 2 mg/mL oral concentrate 2 mg PO Q6HPRN PRN agitation or nausea or vomiting #15 mL 05/10/25
hydromorphone 1 mg/mL oral liquid (Dilaudid) 2 mg (2 mL) PO Q4HPRN PRN moderate pain #48 mL 05/10/25
prochlorperazine maleate 10 mg tablet 10 mg PO Q8H #90 tabs 05/10/25
scopolamine base 1 mg over 3 days transdermal patch 1 patch transdermal Q72H #5 ea 05/10/25
Review of Systems
-
Constitutional: Reports No Symptoms
EENT: Reports No Symptoms
Respiratory: Reports No Symptoms
Cardiac: Reports No Symptoms
Abdomen/GI: Reports Abdominal Pain, Nausea and Vomiting
: Reports No Symptoms
Musculoskeletal: Reports No Symptoms
Skin: Reports No Symptoms
Neurological: Reports No Symptoms
Endocrine: Reports No Symptoms
Hematologic/Lymphatic: Reports No Symptoms
Psych: Reports No Symptoms
Physical Exam
Physical Exam
General: Well Developed, Well Nourished and No Apparent Distress
HEENT: NormoCephalic, Moist mucous membranes and Atraumatic
Respiratory: Clear
Cardiac: S1/S2 and Regular Rhythm; No Murmur or Rub
GI: Soft, Non Tender, Non Distended and Normal Bowel Sounds; No Organomegaly
Rectal: Deferred by Provider
Musculoskeletal: No Clubbing, No Cyanosis and No Edema
Skin: No Rash
Neuro: AO x 3 and Nonfocal/grossly intact
Psych: Calm
Laboratory Results
-
05/10/25 20:53
Data Reviewed
-
Lab Data: Labs Reviewed by me
Impression/Plan
-
#syncope likely vasovagal
#elevated trop likely demand ischemia/STEMI
-head CT pending
-obtain orthostatic
-trend trop
-asa and heparin imitated
-cardiology consulted.
# Vomiting secondary to pancreatic cancer
# Metastatic pancreatic cancer
- Status post chemotherapy and radiation
- NPO
-fluids with kcl continued
- Tigan and scopolamine
- Dilaudid prn for pain
# Hypokalemia secondary to vomiting
- Potassium repletion
# Acute kidney injury likely dehydration
- IV fluids
- Continue to hold hold losartan
#Severe Protein Calorie Malnutrition
#Essential hypertension
- Continue to hold losartan
#COPD
- Continue inhalers
#Hypothyroidism
- Continue levothyroxine
#Smoker
- Has been smoking until recently because she has been feeling sick
#CODE STATUS: DNR
#DVT prophylaxis: Heparin
#CM consulted.
[2025-05-10 21:45] LABS: Troponin I 0.109 ng/ml
--- NOTE | 2025-05-10 21:51 | W.PN.UPDATE ---
Update Note
Progress Note Update
Patient seen in conjunction with ZACH. I agree with the findings on history and physical. I concur with assessment and plan
Briefly, this is a 79-year-old with locally extensive pancreatic carcinoma with direct invasion to regional organs and involvement of celiac axis/superior mesenteric artery, painful pelvic mass and new adnexal mass consistent with progressive
metastases no further treatment options per oncology who was recently admitted for nausea and vomiting and ultimately discharged to home hospice and now brought back to the emergency department by spouse after having a syncopal episode on toilet
after receiving suppository for chronic constipation.
During recent hospital course she essentially has failure to thrive and inability to tolerate any p.o. except for ice chips. Due to lack of nutrition and no significant expectation for treatment of progressive pancreatic cancer patient was referred
started on hospice. Unfortunately does not appear that spouse recognized the main of hospice and wants her to continue to get IV fluids for support.
On arrival in the emergency department she was afebrile, blood pressure was 117/78, pulse was in the low 100s. ECG shows sinus tachycardia at [address]ressions. CBC was unchanged from earlier this morning. Electrolytes are pending.
Unfortunately troponin is elevated at 0.1 and patient denies any chest pain.
Syncope -likely vasovagal versus orthostatic however in the setting of the elevated troponin, rule out an acute ischemic event. At this time spouse does not fully understandand patient will be admitted for limited care with DNR
- Admit to telemetry
- Will start on ACS protocol with aspirin and heparin for now
- Cardiology consult, although I do not expect any intervention giving pancreatic cancer
- Continue as needed antiemetics, pain control
- Maintenance fluid
- Case management consult to discuss dispo as family not clear on hospice.
[2025-05-10 21:59] LABS: ALT (SGPT) 15 U/L (0-35); AST (SGOT) 26 U/L (14-36); Albumin 3.1 g/dl (3.5-5.0); Alkaline Phosphatase 74 U/L (38-126); Blood Urea Nitrogen 62 mg/dl (7-17); Calcium 8.1 mg/dl (8.4-10.2); Chloride 86 mmol/L (98-107); Glucose 123 mg/dl (70-99); Potassium 2.9 mmol/L (3.5-5.1); Sodium 141 mmol/L (135-145); Total Protein 5.7 g/dl (6.3-8.2); eGFR 25.26
[2025-05-10 22:00] VITALS: BP 129/63
[2025-05-10 22:20] LABS: Carbon Dioxide 44 mmol/L (22-30)
[2025-05-10 23:00] VITALS: BP 118/68
[2025-05-10] MEDS: KCL 270 MEQ IV (23:34)
[2025-05-11] VITALS: BP 109/62
[2025-05-11 00:47] LABS: Troponin I 0.227 ng/ml
[2025-05-11] MEDS: ASPIRIN 300 MG RECTAL (00:50)
[2025-05-11] MEDS: HEPARIN 25000 UNITS/250 ML IV (00:57)
[2025-05-11 01:47] VITALS: BP 122/71; BMI 20.8
[2025-05-11] MEDS: TRANSDERM-SCOP 1 PATCH TRANSDERM (02:27)
[2025-05-11] MEDS: COMPAZINE 10 MG PO ×3 (02:27→17:04)
--- NOTE | 2025-05-11 02:38 | PTCARENOTE ---
Pt admitted from ED, AAOx3. Denied pain. Pt afebrile, VSS. Arrived to unit on 2L O2. Bladder scan with 584 mL. Had a pure wick in the ED with no output reported. Pt feels need to void but got up onto commode with no output. Refusing straight
cath at this time. SOFTLINES SUPERVISOR made aware.
[2025-05-11 03:15] VITALS: BP 130/67
[2025-05-11] MEDS: D5/0.45%NSS with KCL 20 MEQ 1000 IV (03:54)
[2025-05-11] MEDS: SYNTHROID 112 MCG PO (05:19)
[2025-05-11 05:51] LABS: Troponin I 0.321 ng/ml
[2025-05-11 05:58] LABS: Blood Urea Nitrogen 73 mg/dl (7-17); Calcium 8.2 mg/dl (8.4-10.2); Chloride 86 mmol/L (98-107); Estimated Creatinine Clearance 18 ml/min; Glucose 140 mg/dl (70-99); Potassium 3.5 mmol/L (3.5-5.1); Sodium 142 mmol/L (135-145); eGFR 21.36
[2025-05-11 06:11] LABS: Carbon Dioxide 52 mmol/L (22-30)
[2025-05-11] MEDS: COMPAZINE 10 MG IV (06:27)
--- NOTE | 2025-05-11 06:45 | W.PN.UPDATE ---
Update Note
Progress Note Update
Patient here for in patient hospice. Family not satisfied with home services. She is retaining urine but refuses to be straight cathed or for dumont to be placed. She is vomiting brown emesis but declines an ng tube. Will offer compazine IV.
--- NOTE | 2025-05-11 07:34 | PTCARENOTE ---
Pt with bladder scan of 747 mL this morning. Straight cath performed and able to remove approx 100 mL of urine. Pt also with large amount of brown emesis since admission. Mary Strickland TRAFFIC ATTENDANT made aware and placed orders for NGT and dumont. Pt
refusing tubes at this time and would like discuss options with team. IV compazine ordered and administered for frequent emesis.
[2025-05-11] MEDS: STRIVERDI RESPIMAT 2 PUFF INH (07:37)
[2025-05-11] MEDS: SPIRIVA RESPIMAT 2.5 MCG 2 PUFF INH (07:37)
[2025-05-11 07:41] LABS: APTT 37.3 Sec (23.4-35.0)
[2025-05-11 08:09] VITALS: BP 127/74
--- NOTE | 2025-05-11 11:58 | W.PN.HOSP.TC ---
Today's Communication/Plan
-
Monitor vitals
See plan
Dumont
Discussed with patient and spouse, agreeable for hospice. Likely need more support going home.
vice president and portfolio manager consulted
Continue with antiemetics
Assessment / Plan
Assessment / Plan
General: Appears Chronically Ill
HEENT: Normocephalic, Atraumatic, Moist Mucous Membranes
Respiratory: Clear to Auscultation and Non Labored Respirations
Cardiac: Regular Rhythm and S1/S2
GI: Soft, tender
Musculoskeletal: No Edema
Neuro: Awake, Alert, Oriented, AO x 3 and No Motor Deficits
Psych: Calm
Vomiting secondary to pancreatic cancer
# Metastatic pancreatic cancer
- Status post chemotherapy and radiation
Comfort diet
Continue scopolamine patch, Compazine. Can use Haldol if needed for persistent nausea
As needed Dilaudid
- Continue gabapentin for pain. Also on Dilaudid
Patient was constipated earlier in last hospitalization, now with BM
Appears secondary to worsening malignancy. Per recent oncology note outpatient has locally extensive pancreatic carcinoma with direct invasion to regional organs and involvement of celiac axis/superior mesenteric artery. Painful pelvic mass. New
adnexal mass consistent with metastases. Per oncology note by Dr. Dobson on 04/21, hospice was recommended however patient at that time deferred. Spoke with patient and spouse again and given her extent of malignancy there is not that many options
per oncology.
Patient was discharged 05/10 on home hospice however came back after having a presyncopal episode. Per he panicked and brought her to the hospital. Patient made very clear that she does not want any further aggressive management and blood
work for possible NSTEMI. Heparin drip has been stopped along with serial troponin. Cardiology evaluation canceled. vice president and portfolio manager consulted for hospice. Patient likely not appropriate for inpatient hospice at this time. Likely home versus
facility hospice
dumont for comfort
Hypokalemia secondary to vomiting
Acute kidney injury
Severe Protein Calorie Malnutrition
Essential hypertension
- Continue to hold losartan
COPD
- Continue inhalers
Hypothyroidism
Smoker
- Has been smoking until recently because she has been feeling sick
CODE STATUS: DNR
DVT prophylaxis
I spent a total of 54 minutes with the patient or on the floor. More than 50% of this time involved counseling and coordination of care.
Anticipated Discharge: Within 24 hours
Subjective/Interval History
-
Date of Service: May 11, 2025
nauseous
Objective Data
-
Labs:
Laboratory Results
05/11/25 05/11/25
05:16 07:21
APTT 37.3 H
Sodium 142
Potassium 3.5
Chloride 86 L
Carbon Dioxide 52 H
BUN 73 H
Creatinine 2.3 H
Glucose 140 H
Calcium 8.2 L
Vital Signs:
Vital Signs
Temp Pulse Resp BP Pulse Ox
97.4 F 117 19 127/74 99
05/11/25 08:09 05/11/25 08:09 05/11/25 08:09 05/11/25 08:09 05/11/25 08:09
I&O
05/10/25 05/11/25 05/12/25
06:59 06:59 06:59
Output Total 100 / 100
Balance -100 / -100
[2025-05-11 12:20] VITALS: BP 114/65
--- NOTE | 2025-05-11 12:24 | CM ---
Addendum entered by Marlen Flynn 05/11/25 15:47:
[facility] DNR signed. On chart
Addendum entered by Marlen Flynn 05/11/25 14:34:
2PM transport for tomorrow - notified Ragini liaison from [facility] & updated
Original Note:
Patient and seen at bedside
IA completed
Lives in [place] with in 2 story home, 2 steps to enter, 12 steps to bed & bath
was discharged yesterday to home with [facility]
states hospice nurse was there patient was taken to bathroom & 'passed out'
'all she wanted to do was to put her back in bed'
CM spoke with patient and regarding hospice - patient wants to go home with hospice
CM spoke with patient sister Sonia (he was on the phone with her) she and her daughter are willing to provide assistance.
Spoke with Ragini thomason at [facility] [phone] who accepted and referral placed in [facility]
Ragini will also meet with patient tomorrow along with the hospice nurse-she will give list of [place] cg
would like 11am transport-equipment is already in the home
[facility] DNR on chart - to be signed by hospitalist - tt hospitalist
PLAN: Discharge to home via ambulance with [facility] on 05/12
transport forms on chart, 11am transport to be set, 2 steps to enter
[facility]
[2025-05-11] MEDS: DILAUDID 2 MG PO (14:50)
[2025-05-11] MEDS: D5/0.45%NSS with KCL 20 MEQ IV (15:14)
--- NOTE | 2025-05-11 15:15 | PTCARENOTE ---
at 0732, spoke with Dr. Griffith as patient refusing Stoner catheter, NG Tube, doesn't want blood work done and to be on Heparin drip and wants hospice. verbal order obtained to d/c Heparin drip, serial Troponin, NG tube and Stoner catheter order that
was placed earlier. pt continues with nausea and vomiting. vomited large amount of brown emesis in basin after eating some mandarin oranges. refusing PRN Tigan IM as ordered. medicated with PRN Dilaudid for c/o back pain. at 1200, placed Stoner
cath as patient unable to urine and bladder scanned for 400mls. pt tolerated procedure well and Stoner placed via 1st attempt with return of yellow urine. vss, to be d/c'd tomorrow on home Hospice. aware, will continue to monitor.
[2025-05-11 16:17] VITALS: BP 116/64
[2025-05-11] MEDS: NEURONTIN 300 MG PO (21:11)
[2025-05-12] MEDS: COMPAZINE PO (01:14)
[2025-05-12 07:00] VITALS: BP 95/60
[2025-05-12] MEDS: SPIRIVA RESPIMAT 2.5 MCG 2 PUFF INH (07:24)
[2025-05-12] MEDS: STRIVERDI RESPIMAT 2 PUFF INH (07:24)
[2025-05-12] MEDS: COMPAZINE 10 MG PO (07:55)
[2025-05-12] MEDS: SYNTHROID 112 MCG PO (07:55)
[2025-05-12] MEDS: DILAUDID 2 MG PO (11:47)
--- NOTE | 2025-05-12 12:00 | CM ---
Cm spoke with [facility] Winder to make her aware of change in transport time; ambulance transport is now scheduled for 1PM. Out of Hospital DNR signed and on chart.
PLAN: Discharge to home via ambulance with [facility] on 05/12/2025 at 1PM.
[facility]
[2025-05-12 12:12] VITALS: BP 94/58
--- NOTE | 2025-05-12 12:31 | W.DCSUMMARY ---
Discharge Summary
Discharge Data
Date of Admission: 05/10/25
Date of Discharge: 05/12/25
Total time spent discharging patient (in min): 40
-
Pending Results: No
Hospital Course
Hospital course
79-year-old female with past medical history of metastatic pancreatic cancer status postchemotherapy and radiation, essential hypertension, COPD, hypothyroidism came to the hospital with intractable nausea and vomiting secondary to metastatic
pancreatic cancer. Abdominal imaging was also consistent with malignancy and constipation. Patient required multiple medication titration for her nausea and vomiting. Given her metastatic cancer with no further treatment and intractable nausea
and vomiting due to malignancy, patient and family decided for hospice. While patient was in the hospital she also had electrolyte disturbances which were repleted. She also had acute kidney injury due to dehydration from nausea and vomiting.
Once her nausea and vomiting was better controlled, she was then discharged home on hospice. came back in the same day from home via EMS for evaluation after episode of unresponsiveness. hospice nurse gave her suppository for nausea. she went to the
bathroom, sat on the toilet and passed out. she was noted diaphoretic and noted to have low blood pressure. denied fever, chills, chest pain, sob. denied CARBONE, dizzy or syncope. denied abdominal pain, diarrhea.
Hospice consulted and patient will be discharged today home with home hospice.
Physical exam:
GENERAL : Looks tired
HEENT: Nonicteric sclerae, PERRLA, EOMI. Oropharynx clear. Moist mucous membranes. Conjunctivae appear well perfused.
CHEST: Bilateral rales
HEART: Regular rate and rhythm without murmurs.
LUNGS: Clear to auscultation bilaterally.
ABDOMEN: Soft, positive bowel sounds, nontender, no organomegaly.
RECTAL: Deferred.
SKIN: No rash, no excessive bruising, petechiae, or purpura.
NEUROLOGIC: Tired and on distress.
Total time spent on today's encounter was 40 minutes which included time spent in counseling the patient/family regarding diagnosis and treatment plan as listed above, goals of care, and symptom management. Case was discussed with nursing staff,
specialists, and care coordinators/case management. All labs and imaging personally reviewed by me. Remainder the time spent in detailed review of previous records, lab data, imaging, and other medical provider documentation.
Anticipated Discharge: Today
Discharge Plan
-
Patient Disposition: Home with Hospice
Discharge Diagnosis/Procedures: Intractable nausea and vomiting
Constipation
Metastatic pancreatic cancer
Hypokalemia
Possible NSTEMI
Diet: As tolerated
Activity: As tolerated
Driving Restrictions: As prior to admission
Bathing Restrictions: None
Other Services: Hospice
Referrals:
UNKNOWN - PT NOT,INTERVIEWE [Family Provider, Internal Medicine] - in less than 1 week
Prescriptions:
Continued
levothyroxine 112 MCG tablet
112 mcg PO DAILY
Stiolto Respimat 2.5-2.5 mcg/actuation Mist
1 puff INHALATION R DAILY
omeprazole 20 mg Capsule,Delayed Release(Dr/Ec)
20 mg PO BID
aspirin 81 mg Tablet,Chewable
81 mg PO DAILY
albuterol sulfate 90 mcg/actuation Hfa Aerosol Inhaler
1 puff INHALATION R QIDPRN PRN (Reason: sob)
gabapentin 300 mg Capsule
300 mg PO HS
acetaminophen 325 mg Tablet
650 mg PO Q6HPRN PRN (Reason: mild pain/ fever>100.5F) Qty: 0 0RF
prochlorperazine maleate 10 mg Tablet
10 mg PO Q8H Qty: 90 0RF
docusate sodium 100 mg Capsule
100 mg PO BID Qty: 0 0RF
scopolamine base 1 mg over 3 days Patch 3 Day
1 patch transdermal Q72H Qty: 5 0RF
bisacodyl [Dulcolax (bisacodyl)] 10 mg Suppository
10 mg ME DAILYPRN PRN (Reason: if no BM in 3 days) Qty: 4 0RF
hydromorphone [Dilaudid] 1 mg/mL Liquid
2 mg PO Q4HPRN PRN (Reason: moderate pain) Qty: 48 0RF
haloperidol lactate 2 mg/mL Concentrate
2 mg PO Q6HPRN PRN (Reason: agitation or nausea or vomiting) Qty: 15 0RF
Rx Instructions:
2mg or 0.5mL every 6 hours as needed
Discontinued
ondansetron 8 mg Tablet,Disintegrating
8 mg PO Q8HPRN PRN (Reason: nausea)
Discharge Orders:
Discharge Patient (As Directed); Ordered 05/12/25
Ordered By: Vita Mckay
Discharge Date and Time
Print Language: NEPALESE
== END 2025-05-12 13:29 | disposition hospice, home (50) | DRG 435 ==
LOC: 3 WEST ACU 22:25
PROVIDERS: Registered Nurse; ADMITTING PHYSICIAN Internal Medicine; ATTENDING PHYSICIAN General Practice; EMERGENCY PHYSICIAN Emergency Medicine
DX: C25.9 Malignant neoplasm of pancreas, unspecified (principal); E43 Unspecified severe protein-calorie malnutrition; I21.4 Non-ST elevation (NSTEMI) myocardial infarction; N17.9 Acute kidney failure, unspecified; C79.9 Secondary malignant neoplasm of unspecified site; R11.2 Nausea with vomiting, unspecified; F17.200 Nicotine dependence, unspecified, uncomplicated; E78.00 Pure hypercholesterolemia, unspecified; J44.9 Chronic obstructive pulmonary disease, unspecified; E03.9 Hypothyroidism, unspecified; I49.1 Atrial premature depolarization; M19.90 Unspecified osteoarthritis, unspecified site; E87.6 Hypokalemia; K59.00 Constipation, unspecified; E86.0 Dehydration; G89.29 Other chronic pain; I10 Essential (primary) hypertension; R33.9 Retention of urine, unspecified; L30.9 Dermatitis, unspecified; Z66 Do not resuscitate; Z86.0100 Personal history of colon polyps, unspecified; Z85.828 Personal history of other malignant neoplasm of skin; Z79.890 Hormone replacement therapy; Z79.82 Long term (current) use of aspirin; Z92.21 Personal history of antineoplastic chemotherapy; Z92.3 Personal history of irradiation; Z68.20 Body mass index [BMI] 20.0-20.9, adult
CPT/HCPCS: 70450; 80048; 80053; 82962; 84484; 85025; 85610; 85730; 93005; 94640; 96365; 96375; 99285; 99406